=== PATIENT | female | born 1985 | race Asian ===

== ENCOUNTER 2019-12-10 17:09 | Emergency (ER) | payer OTHER, SELFPAY ==
--- NOTE | 2019-12-10 18:34 | ED.ABDPAIN ---
HPI - Abdominal Pain General Chief Complaint: Abdominal Pain Stated Complaint: Fever Time Seen by Provider: 12/10/19 18:34 Source: patient Mode of arrival: ambulatory Limitations: no limitations History of Present Illness HPI narrative: Patient had low grade fever for past few days, now with fever to 103. she is complaining of flank pain and abdominal pain MD elicited complaint: abdominal pain and flank pain Pertinent past history: other (diabetes, IBS, asthma, HTN) Onset (ago): day(s) Pain Consistency: constant Location: L flank Severity: moderate Quality: aching Migration to: no migration Associated symptoms: nausea, fever and chills Related Data Home Medications Medication Instructions Recorded Confirmed albuterol sulfate mg INHALATION Q8H PRN 12/10/19 albuterol sulfate 90 mcg/actuation 2 puff PO Q6H PRN 12/10/19 aerosol inhaler amlodipine 10 mg tablet 10 mg PO DAILY 12/10/19 epinephrine 0.3 mg/0.3 mL 1 IM ONCE PRN 12/10/19 injection, auto-injector flu vac qs 2020(4 yr up)CD(PF) ml IM 12/10/19 fluticasone propionate 110 1 puff INHALATION BID PRN 12/10/19 mcg/actuation HFA aerosol inhaler loratadine 10 mg tablet 10 mg PO DAILY 12/10/19 metformin 850 mg tablet 850 mg PO DAILY 12/10/19 montelukast 10 mg tablet 10 mg PO DAILY 12/10/19 naratriptan 2.5 mg tablet 2.5 mg PO DAILY PRN 12/10/19 spironolactone 25 1 tab PO DAILY 12/10/19 mg-hydrochlorothiazide 25 mg tablet Previous Rx's Medication Instructions Recorded cephalexin [Keflex] 500 mg PO QID #40 cap 12/10/19 Allergies Allergy/AdvReac Type Severity Reaction Status Date / Time losartan [LOSARTAN] Allergy Unknown COUGH Unverified 11/12/19 17:19 oxycodone Allergy Unknown Verified 02/28/16 00:00 acetaminophen [From VICODIN] AdvReac Unknown NAUSEA Unverified 11/12/19 17:19 hydrocodone [From VICODIN] AdvReac Unknown NAUSEA Unverified 11/12/19 17:19 lisinopril AdvReac Unknown cough Verified 07/31/19 00:00 metoprolol AdvReac Unknown dizziness/n Verified 07/31/19 00:00 ausea Review of Systems Constitutional: Reports no additional constitutional complaints Eyes: Reports no additional eye complaints Denies dizziness Cardiovascular: Reports no additional cardiovascular complaints Respiratory: Reports as per HPI Gastrointestinal: Reports no additional gastrointestinal complaints Genitourinary: Reports no additional female genitourinary complaints Musculoskeletal: Reports no additional musculoskeletal complaints Skin/Breast: Denies rash Reports system reviewed and no additional complaints, except as documented, Denies dizziness and Denies Sensory deficit (Neuro) Psychiatric: Denies anxiety Physical Exam Vital Signs: Vital Signs: Vital Signs Temp Pulse Resp BP Pulse Ox 12/10/19 19:48 100.7 F H 117 H 18 109/75 96 Const: General: healthy appearing Nutritional Appearance: average body habitus Orientation/consciousness: oriented to person and patient oriented x3 Limitations: no limitations HENMT: Head: Yes normal to inspection Ears: external ears normal General nose exam: Normal external nose present Mouth: Normal oral and palatal mucosa present and oropharynx normal Throat: Yes posterior oropharynx normal Eyes: General: appearance normal, both eyes and all related structures Neck: Other: supple Neck: Yes normal visual inspection Chest: Chest palpation & inspection: normal inspection of the chest Resp: Auscultation: clear to auscultation bilaterally Cardio: Jugular venous distension: no JVD Rate: regular rate Rhythm: regular rhythm Heart sounds: S1 normal heart sound present and S2 normal heart sound present GI: Inspection: Yes normal to inspection Palpation (GI): Soft to palpation, nontender and No hepatosplenomegaly present Auscultation: normal bowel sounds : Other: patient with right sided CVAT General: Yes CVA tenderness Back/Spine/Pelvis: Back: CVA tenderness Skin: General skin exam: no rashes or lesions noted Neuro: General: oriented to person and patient oriented x3 Cranial nerves: Yes CN's II-XII intact bilaterally Motor exam (neuro): 5/5 motor strength present throughout Sensory Exam: No Sensory deficit (Neuro) Extrem: General: Yes normal to inspection Psych: Appearance: grossly normal Course Course Course Narrative: patient with fever, right CVAT, soft abdomen, UA has nitrites and 4+ bacteria with few epis. Impression is pyelonephritis. Will give a dose of Ceftriaxone and dc on keflex MDM - Abdominal Pain MDM Narrative Medical decision making narrative: pyelonephritis vs gall bladder disease, but with CVAT and fever, and nitrites with bacteria will treat for pyelo Differential Diagnosis Differential diagnosis: Likely abdominal pain Lab Data Result diagrams: 12/10/19 19:19 12/10/19 19:19 Labs: Lab Results 12/10/19 12/10/19 12/10/19 Range/Units 19:19 19:19 19:51 WBC 16.7 H (4.8-10.8) X10*3/uL RBC 4.17 L (4.20-5.50) X10*6/uL Hgb 13.2 (12.0-16.0) g/dl Hct 38.1 (37-47) % MCV 91.4 (80-98) fL MCH 31.7 (27.0-33.0) pg MCHC 34.6 (31.0-35.0) g/dl RDW 11.2 (11.0-16.0) % Plt Count 346 (160-400) X10*3/uL MPV 8.9 L (9.4-12.3) fL Immature Gran % (Auto) 0.5 H (0.0-0.4) % Neut % (Auto) 84.8 H (45-73) % Lymph % (Auto) 5.5 L (20-40) % [place] % (Auto) 9.0 (2-11) % Eos % (Auto) 0.0 (0-4) % Baso % (Auto) 0.2 (0-2) % Lymph # (Auto) 0.9 L (1.2-4.9) X10*3/uL [place] # (Auto) 1.5 H (0.1-1.2) X10*3/uL Eos # (Auto) 0.0 (0.0-0.4) X10*3/uL Baso # (Auto) 0.0 (0.0-0.2) X10*3/uL Abs Immat Gran (auto) 0.08 H (0.00-0.03) X10*3/uL Absolute Neuts (auto) 14.2 H (2.0-8.3) X10*3/uL Absolute Nucleated RBC 0.000 (0.0-0.012) X10*3/uL Nucleated RBC % (auto) 0.0 (0.0-0.2) /100WBC Smear Tech's Comments VERIFIED Sodium 131 L (135-145) mmol/L Potassium 3.5 (3.3-5.1) mmol/l Chloride 94 L (96-108) mmol/L Carbon Dioxide 25 (22-29) mmol/L Anion Gap 16 (12-20) BUN 11 (9-16) mg/dL Creatinine 0.96 (0.5-1.4) mg/dL Estim Creat Clear Calc TNP Estimated GFR > 60 Random Glucose 147 H (60-115) mg/dL Calcium 9.7 (8.4-10.2) mg/dL Urine Color YELLOW Urine Appearance HAZY Urine pH 5.5 (5.0-8.0) Ur Specific [place] 1.015 (1.005-1.025) Urine Protein NEG (NEG-TRACE) MG/DL Urine Glucose (UA) NEG (NEG) MG/DL Urine Ketones NEG (NEG) MG/DL Urine Blood TRACE (NEG) Urine Nitrite POS H (NEG) Ur Leukocyte Esterase TRACE H (NEG) Urine RBC 0-2 (0) /HPF Urine WBC 1-4 (0-4) /HPF Ur Squamous Epith Cells 1+ /LPF Urine Bacteria 4+ /LPF Discharge Plan Discharge Clinical Impression: Pyelonephritis Patient Disposition: Home, Self-Care Instructions: Kidney Infection (ED) Prescriptions: New cephalexin [Keflex] 500 mg capsule 500 mg PO QID Qty: 40 RF: 0 No Action amlodipine 10 mg tablet 10 mg PO DAILY RF: 0 spironolacton-hydrochlorothiaz 25-25 mg tablet 1 tab PO DAILY RF: 0 Flucelvax Quad (PF) 60 mcg (15 mcg x 4)/0.5 mL syringe IM RF: 0 loratadine 10 mg tablet 10 mg PO DAILY RF: 0 Flovent HFA 110 mcg/actuation HFA aerosol inhaler 1 puff inhalation BID PRNRF: 0 naratriptan 2.5 mg tablet 2.5 mg PO DAILY PRN (Reason: migraine) RF: 0 montelukast 10 mg tablet 10 mg PO DAILY RF: 0 metformin 850 mg tablet 850 mg PO DAILY RF: 0 epinephrine 0.3 mg/0.3 mL auto-injector 1 IM ONCE PRNRF: 0 albuterol sulfate 2.5 mg /3 mL (0.083 %) solution for nebulization inhalation Q8H PRNRF: 0 albuterol sulfate 90 mcg/actuation HFA aerosol inhaler 2 puff PO Q6H PRNRF: 0 PMFSH Social History Social History Alcohol intake: never Smoking Status: Never smoker Use of substances other than those prescribed or required for medical reasons: No Advance Directives: No Advance Directives Information Provided: Yes
[2019-12-10 19:24] LABS: Basophils Percent Auto 0.2 % (0-2); Hematocrit 38.1 % (37-47); Hemoglobin 13.2 g/dl (12.0-16.0); Imm Gran Abs Auto 0.08 X10*3/uL (0.00-0.03); Imm Gran Pct Auto 0.5 % (0.0-0.4); Lymphocytes Absolute Auto 0.9 X10*3/uL (1.2-4.9); Lymphocytes Percent Auto 5.5 % (20-40); MANUAL DIFF FLAG SCAN; Mean Corpuscular HGB Conc 34.6 g/dl (31.0-35.0); Mean Corpuscular Hemoglobin 31.7 pg (27.0-33.0); Mean Corpuscular Volume 91.4 fL (80-98); Mean Platelet Volume 8.9 fL (9.4-12.3); Monocytes Absolute Auto 1.5 X10*3/uL (0.1-1.2); Neutrophils Absolute Auto 14.2 X10*3/uL (2.0-8.3); Neutrophils Percent Auto 84.8 % (45-73); Platelet Count 346 X10*3/uL (160-400); Red Blood Count 4.17 X10*6/uL (4.20-5.50); Red Cell Distribution Width 11.2 % (11.0-16.0); SCAN SMEAR FLAG 1; White Blood Count 16.7 X10*3/uL (4.8-10.8)
[2019-12-10] MEDS: Ibuprofen 800 MG TABLET PO (19:25)
[2019-12-10] MEDS: 0.9 % Sodium Chloride 500 ML IV (19:26)
[2019-12-10 19:48] VITALS: BP 109/75; PULSE 117; RESP 18; TEMP 38.2; O2SAT 96
[2019-12-10 20:00] LABS: Anion Gap 16 (12-20); Blood Urea Nitrogen 11 mg/dL (9-16); Calcium 9.7 mg/dL (8.4-10.2); Carbon Dioxide 25 mmol/L (22-29); Chloride 94 mmol/L (96-108); Estimated Glomerular Filt Rate > 60; Glucose Random 147 mg/dL (60-115); Potassium 3.5 mmol/l (3.3-5.1); Sodium 131 mmol/L (135-145)
[2019-12-10 20:03] LABS: SLIDE REVIEW VERIFIED
[2019-12-10 20:17] LABS: Glucose Urine UA NEG (NEG); Leukocyte Esterase Urine TRACE (NEG); Nitrite Urine POS (NEG); PH 5.5 (5.0-8.0); Specific Gravity - Urine 1.015 (1.005-1.025); Urine Blood TRACE (NEG); Urine Ketones NEG (NEG); Urine Protein NEG (NEG-TRACE)
[2019-12-10 20:18] LABS: Appearance Urine HAZY; Color Urine YELLOW
[2019-12-10 20:24] LABS: Bacteria Urine 4+ /LPF; RBC Urine 0-2 /HPF (0); Squamous Epithelial Cell Urine 1+ /LPF
[2019-12-10] MEDS: cefTRIAXone sodium 1 GM in 0.9 % Sodium Chloride 50 ML IV (22:05)
== END 2019-12-10 22:36 | disposition home or self-care (01) ==
PROVIDERS: Emergency Provider Emergency Medicine; PCP Internal Medicine
DX: N12 Tubulo-interstitial nephritis, not specified as acute or chronic (principal); R50.9 Fever, unspecified; E11.9 Type 2 diabetes mellitus without complications; I10 Essential (primary) hypertension; J45.909 Unspecified asthma, uncomplicated; Z79.899 Other long term (current) drug therapy; Z79.84 Long term (current) use of oral hypoglycemic drugs
CPT/HCPCS: 36415; 80048; 81001; 85025; 87040; 87086; 87088; 87186; 99283; 99284

== ENCOUNTER 2019-12-31 11:23 | Outpatient (REF) | payer OTHER, SELFPAY ==
[2019-12-31 14:00] LABS: MANUAL DIFF FLAG NO
[2019-12-31 14:11] LABS: Basophils Percent Auto 0.5 % (0-2); Eosinophils Absolute Auto 0.1 X10*3/uL (0.0-0.4); Hematocrit 39.3 % (37-47); Hemoglobin 13.2 g/dl (12.0-16.0); Imm Gran Abs Auto 0.02 X10*3/uL (0.00-0.03); Imm Gran Pct Auto 0.3 % (0.0-0.4); Lymphocytes Absolute Auto 2.1 X10*3/uL (1.2-4.9); Lymphocytes Percent Auto 33.3 % (20-40); Mean Corpuscular HGB Conc 33.6 g/dl (31.0-35.0); Mean Corpuscular Hemoglobin 31.6 pg (27.0-33.0); Mean Platelet Volume 9.4 fL (9.4-12.3); Monocytes Absolute Auto 0.5 X10*3/uL (0.1-1.2); Monocytes Percent Auto 8.1 % (2-11); Neutrophils Absolute Auto 3.5 X10*3/uL (2.0-8.3); Neutrophils Percent Auto 56.8 % (45-73); Platelet Count 389 X10*3/uL (160-400); Red Blood Count 4.18 X10*6/uL (4.20-5.50); White Blood Count 6.2 X10*3/uL (4.8-10.8)
[2019-12-31 14:17] LABS: Glucose Urine UA NEG (NEG); Leukocyte Esterase Urine NEG (NEG); Nitrite Urine NEG (NEG); PH 6.5 (5.0-8.0); Specific Gravity - Urine <= 1.005 (1.005-1.025); Urine Blood NEG (NEG); Urine Ketones NEG (NEG); Urine Protein NEG (NEG-TRACE)
[2019-12-31 14:20] LABS: Appearance Urine CLEAR; Color Urine YELLOW; UACC Culture Trigger NO
[2019-12-31 14:32] LABS: Anion Gap 15 (12-20); Blood Urea Nitrogen 9 mg/dL (9-16); Calcium 9.4 mg/dL (8.4-10.2); Carbon Dioxide 27 mmol/L (22-29); Chloride 98 mmol/L (96-108); Estimated Glomerular Filt Rate > 60; Glucose Random 111 mg/dL (60-115); Sodium 136 mmol/L (135-145)
[2019-12-31 17:43] LABS: Estimated Average Glucose 140 mg/dL; Hemoglobin A1c % 6.5 %
== END 2019-12-31 11:24 | disposition home or self-care (01) ==
LOC: HO.HMGCLDS 11:23
PROVIDERS: PCP Internal Medicine; Visit Provider Internal Medicine
DX: E13.9 Other specified diabetes mellitus without complications (principal); I10 Essential (primary) hypertension; E87.1 Hypo-osmolality and hyponatremia; R79.89 Other specified abnormal findings of blood chemistry
CPT/HCPCS: 36415; 80048; 81003; 83036; 85025

== ENCOUNTER → 2020-03-14 13:56 | Outpatient (BNVA) | payer OTHER, SELFPAY | PROVIDERS: PCP Internal Medicine; Visit Provider Internal Medicine | DX: J45.909 Unspecified asthma, uncomplicated (principal); G47.33 Obstructive sleep apnea (adult) (pediatric); E66.9 Obesity, unspecified | CPT/HCPCS: 99202 ==

== ENCOUNTER 2020-07-06 09:04 | Outpatient (REF) | payer OTHER, SELFPAY ==
[2020-07-06 12:01] LABS: Estimated Average Glucose 137 mg/dL; Hemoglobin A1c % 6.4 %
[2020-07-06 12:21] LABS: Ferritin 362 ng/mL (10-122)
[2020-07-06 12:22] LABS: Anion Gap 14 (12-20); Blood Urea Nitrogen 13 mg/dL (9-16); Calcium 10.1 mg/dL (8.4-10.2); Carbon Dioxide 27 mmol/L (22-29); Chloride 98 mmol/L (96-108); Cholesterol 148 mg/dL; Estimated Glomerular Filt Rate > 60; Glucose Fasting 140 mg/dL (60-99); HDL Cholesterol 67 mg/dL; LDL Cholesterol Calculated 65 mg/dl; Potassium 4.3 mmol/L (3.3-5.1); Sodium 135 mmol/L (135-145); Triglycerides 80 mg/dL
[2020-07-06 12:34] LABS: Creatinine Urine 27.06 mg/dL; Microalbumin Urine < 5.0 mg/L
== END 2020-07-06 09:05 | disposition home or self-care (01) ==
LOC: HO.HMGCLDS 09:04
PROVIDERS: PCP Internal Medicine; Visit Provider Internal Medicine
DX: R94.5 Abnormal results of liver function studies (principal); R79.89 Other specified abnormal findings of blood chemistry; E13.9 Other specified diabetes mellitus without complications
CPT/HCPCS: 36415; 80048; 80061; 82043; 82728; 83036

== ENCOUNTER 2020-10-14 06:36 | Outpatient (REF) | payer OTHER, SELFPAY ==
[2020-10-14 11:50] LABS: Estimated Average Glucose 131 mg/dL; Hemoglobin A1c % 6.2 %
[2020-10-14 12:00] LABS: Creatinine Urine 224.76 mg/dL; Microalbum/Creatinine Ratio Ur 6.2 ug/mg cr
[2020-10-14 12:20] LABS: Ferritin 189 ng/mL (10-122)
[2020-10-14 12:21] LABS: Alanine Aminotransferase 45 U/L (0-31); Albumin Level 4.3 g/dL (3.5-5.0); Alkaline Phosphatase 102 U/L (39-117); Anion Gap 14 (12-20); Aspartate Amino Transferase 25 U/L (5-31); Bilirubin Total 0.6 mg/dL (0.0-1.0); Blood Urea Nitrogen 12 mg/dL (9-16); Calcium 9.8 mg/dL (8.4-10.2); Carbon Dioxide 25 mmol/L (22-29); Chloride 100 mmol/L (96-108); Estimated Glomerular Filt Rate > 60; Glucose Random 138 mg/dL (60-115); Potassium 3.9 mmol/L (3.3-5.1); Sodium 135 mmol/L (135-145); Total Protein 7.4 g/dL (6.5-8.0)
== END 2020-10-14 06:37 | disposition home or self-care (01) ==
LOC: HO.HMGCLDS 06:36
PROVIDERS: PCP Internal Medicine; Visit Provider Internal Medicine
DX: E13.9 Other specified diabetes mellitus without complications (principal); E66.01 Morbid (severe) obesity due to excess calories; G43.909 Migraine, unspecified, not intractable, without status migrainosus; I10 Essential (primary) hypertension; R79.89 Other specified abnormal findings of blood chemistry; Z91.09 Other allergy status, other than to drugs and biological substances
CPT/HCPCS: 36415; 80053; 82043; 82728; 83036

== ENCOUNTER 2020-11-09 16:39 | Outpatient (REF) | payer OTHER, SELFPAY | END 2020-11-09 16:40 | disposition home or self-care (01) | LOC: HO.LNP 16:39 | PROVIDERS: Visit Provider Internal Medicine | DX: J06.9 Acute upper respiratory infection, unspecified (principal); Z20.822 Contact with and (suspected) exposure to COVID-19 | CPT/HCPCS: U0003; U0005 ==

== ENCOUNTER 2021-02-14 07:57 | Outpatient (REF) | payer OTHER, SELFPAY ==
[2021-02-14 11:47] LABS: Estimated Average Glucose 143 mg/dL; Hemoglobin A1c % 6.6 %
[2021-02-14 11:59] LABS: Alanine Aminotransferase 66 U/L (0-31); Albumin Level 4.4 g/dL (3.5-5.0); Alkaline Phosphatase 91 U/L (39-117); Anion Gap 13 (12-20); Aspartate Amino Transferase 39 U/L (5-31); Bilirubin Total 0.6 mg/dL (0.0-1.0); Blood Urea Nitrogen 10 mg/dL (9-16); Carbon Dioxide 28 mmol/L (22-29); Chloride 100 mmol/L (96-108); Estimated Glomerular Filt Rate > 60; Glucose Random 136 mg/dL (60-115); Sodium 137 mmol/L (135-145); Total Protein 8.2 g/dL (6.5-8.0)
[2021-02-14 12:21] LABS: Ferritin 280 ng/mL (10-122)
== END 2021-02-14 07:58 | disposition home or self-care (01) ==
LOC: HO.HMGCLDS 07:57
PROVIDERS: PCP Internal Medicine; Visit Provider Internal Medicine
DX: E13.9 Other specified diabetes mellitus without complications (principal); G43.909 Migraine, unspecified, not intractable, without status migrainosus; I10 Essential (primary) hypertension; R79.89 Other specified abnormal findings of blood chemistry
CPT/HCPCS: 36415; 80053; 82728; 83036

== ENCOUNTER 2021-07-19 08:40 | Outpatient (REF) | payer OTHER, SELFPAY ==
[2021-07-19 11:30] LABS: Estimated Average Glucose 154 mg/dL
[2021-07-19 11:47] LABS: Alanine Aminotransferase 79 U/L (0-31); Albumin Level 4.4 g/dL (3.5-5.0); Alkaline Phosphatase 80 U/L (39-117); Anion Gap 12 (12-20); Aspartate Amino Transferase 35 U/L (5-31); Bilirubin Total 0.7 mg/dL (0.0-1.0); Blood Urea Nitrogen 11 mg/dL (9-16); Calcium 10.1 mg/dL (8.4-10.2); Carbon Dioxide 28 mmol/L (22-29); Chloride 101 mmol/L (96-108); Cholesterol 150 mg/dL; Estimated Glomerular Filt Rate > 60; Glucose Fasting 160 mg/dL (60-99); HDL Cholesterol 61 mg/dL; LDL Cholesterol Calculated 65 mg/dl; Potassium 4.3 mmol/L (3.3-5.1); Sodium 137 mmol/L (135-145); Triglycerides 122 mg/dL
[2021-07-19 12:24] LABS: Creatinine Urine 174.74 mg/dL; Microalbum/Creatinine Ratio Ur 4.5 ug/mg cr
== END 2021-07-19 08:41 | disposition home or self-care (01) ==
LOC: HO.HMGCLDS 08:40
PROVIDERS: Visit Provider Internal Medicine
DX: E13.9 Other specified diabetes mellitus without complications (principal); E66.01 Morbid (severe) obesity due to excess calories; I10 Essential (primary) hypertension
CPT/HCPCS: 36415; 80053; 80061; 82043; 83036

== ENCOUNTER 2021-11-09 07:47 | Outpatient (REF) | payer OTHER, SELFPAY ==
[2021-11-09 11:43] LABS: Alanine Aminotransferase 55 U/L (0-31); Albumin Level 4.4 g/dL (3.5-5.0); Alkaline Phosphatase 81 U/L (39-117); Anion Gap 15 (12-20); Aspartate Amino Transferase 30 U/L (5-31); Bilirubin Total 0.6 mg/dL (0.0-1.0); Blood Urea Nitrogen 11 mg/dL (9-16); Calcium 9.6 mg/dL (8.4-10.2); Carbon Dioxide 25 mmol/L (22-29); Chloride 98 mmol/L (96-108); Estimated Glomerular Filt Rate > 60; Glucose Random 138 mg/dL (60-115); Sodium 134 mmol/L (135-145); Total Protein 7.5 g/dL (6.5-8.0)
[2021-11-09 11:52] LABS: Estimated Average Glucose 128 mg/dL; Hemoglobin A1c % 6.1 %
== END 2021-11-09 07:48 | disposition home or self-care (01) ==
LOC: HO.HMGCLDS 07:47
PROVIDERS: PCP Internal Medicine; Visit Provider Internal Medicine
DX: E13.9 Other specified diabetes mellitus without complications (principal); E66.01 Morbid (severe) obesity due to excess calories; I10 Essential (primary) hypertension; J45.40 Moderate persistent asthma, uncomplicated; R79.89 Other specified abnormal findings of blood chemistry; Z91.09 Other allergy status, other than to drugs and biological substances
CPT/HCPCS: 36415; 80053; 83036

== ENCOUNTER 2021-11-28 17:37 | Outpatient (REF) | payer OTHER, SELFPAY ==
[2021-11-28 18:29] LABS: Influenza A PCR NEGATIVE (Negative); Influenza B PCR NEGATIVE (Negative); Resp Syncy Virus RNA Qual PCR NEGATIVE (Negative); SARS COV2 PCR INHOUSE POSITIVE (Negative)
== END 2021-11-28 17:38 | disposition home or self-care (01) ==
LOC: HO.LNP 17:37
PROVIDERS: Visit Provider Emergency Medicine
DX: Z20.822 Contact with and (suspected) exposure to COVID-19 (principal); R68.89 Other general symptoms and signs
CPT/HCPCS: 0241U

== ENCOUNTER 2022-06-11 09:50 | Outpatient (REF) | payer OTHER, SELFPAY ==
[2022-06-11 12:16] LABS: Estimated Average Glucose 140 mg/dL; Hemoglobin A1c % 6.5 %
[2022-06-11 12:17] LABS: Alanine Aminotransferase 52 U/L (0-31); Albumin Level 4.6 g/dL (3.5-5.0); Alkaline Phosphatase 79 U/L (39-117); Anion Gap 13 (12-20); Aspartate Amino Transferase 26 U/L (5-31); Bilirubin Total 0.9 mg/dL (0.0-1.0); Blood Urea Nitrogen 10 mg/dL (9-16); Calcium 9.4 mg/dL (8.4-10.2); Carbon Dioxide 27 mmol/L (22-29); Chloride 101 mmol/L (96-108); Estimated Glomerular Filt Rate > 60; Glucose Random 145 mg/dL (60-115); Sodium 137 mmol/L (135-145); Total Protein 7.6 g/dL (6.5-8.0)
== END 2022-06-11 09:51 | disposition home or self-care (01) ==
LOC: HO.HMGCLDS 09:50
PROVIDERS: PCP Internal Medicine; Visit Provider Internal Medicine
DX: E13.9 Other specified diabetes mellitus without complications (principal); I10 Essential (primary) hypertension
CPT/HCPCS: 36415; 80053; 83036

== ENCOUNTER 2023-01-22 11:50 | Outpatient (AMB) | payer OTHER, SELFPAY ==
[2023-01-22 11:53] VITALS: BP 114/86; PULSE 95; O2SAT 98; BMI 35.1
--- NOTE | 2023-01-22 11:53 | MHC.PC.OV ---
Vital Signs 01/22/23 11:53 Height 5 ft 4 in Weight 204 lb 4 oz BMI 35.1 BP 114/86 Blood Pressure Location Lt brachial Position Sitting Pulse 95 Pulse Source Pulse Oximeter Pulse Oximetry (%) 98 Oxygen Delivery Method Room Air Intake Visit Reasons: Annual PE Allergies losartan [LOSARTAN] Allergy (Unknown, Verified 01/22/23 11:53) COUGH oxycodone Allergy (Unknown, Verified 01/22/23 11:53) Unknown acetaminophen [From VICODIN] Adverse Reaction (Unknown, Verified 01/22/23 11:53) NAUSEA hydrocodone [From VICODIN] Adverse Reaction (Unknown, Verified 01/22/23 11:53) NAUSEA lisinopril Adverse Reaction (Unknown, Verified 01/22/23 11:53) cough metoprolol Adverse Reaction (Unknown, Verified 01/22/23 11:53) dizziness/nausea Medication List - Last Reconciled 01/22/23 by Johanny Garcia MD albuterol sulfate 90 mcg/actuation 2 puffs PO Q6H PRN albuterol sulfate 2.5 mg inhalation Q6H PRN amlodipine 5 mg PO DAILY 90 days ascorbic acid (vitamin C) 1,000 mg PO DAILY cholecalciferol (vitamin D3) 100 mcg PO DAILY epinephrine 1 IM ONCE PRN Flovent HFA 110 mcg/actuation (fluticasone propionate) 1 puff inhalation BID 90 days NS loratadine (Claritin) 10 mg PO DAILY 90 days meclizine 25 mg PO BID PRN 30 days metformin 850 mg PO DAILY montelukast (Singulair) 10 mg PO DAILY naratriptan 2.5 mg PO DAILY PRN spironolacton-hydrochlorothiaz 25-25 mg 1 tab PO DAILY 90 days Tobacco use date assessed: 01/22/23 Dental Screening Dental Screen Date: 01/22/23 Did you have a dental visit in the last 12 months?: Yes Did you have a dental problem in the last 6 months where you did not have access to dental care?: No Was dental information given to patient?: Patient has dentist HPI Annual PE HPI Details Patient is 37-year-old female who was last seen in May Patient did not come in after that as she got COVID once and then her grandmother Pap smear is up to date patient [facility] in [facility] Last visit was in summer of this year She is due for labs order placed to be done fasting Patient is asthmatic but stable she is on Flovent as maintenance inhaler and albuterol as needed Patient is having difficulty filling albuterol for some reason I have sent Ventolyn inhaler patient is to get back to me there is a problem BMI is elevated at 35.1 patient is trying to lose weight Medication list reviewed Blood pressure is stable Continue metformin for diabetes Migraine headaches are stable as well Follow-up 3 months [facility] Medical History Obesity (BMI 30.0-34.9) ALESIA (obstructive sleep apnea) Allergic rhinitis LFT elevation Elevated ferritin Asthma Migraine headache Diabetes 1.5, managed as type 2 Environmental allergies Hypertension, essential Surgical History History of laparoscopic cholecystectomy Family History Father Unknown family medical history Mother Unknown family medical history Brother No problems noted. Social History Housing: House Alcohol intake: never Patient Tobacco Use Status: Never used Tobacco e-Cigarette/Vaping Use: Never Used Second Hand Smoke Exposure: No service: No Current occupational status: employed Cognitive needs: No Hearing needs: No Vision needs: No Questionnaire PHQ-9 Over the last 2 weeks, how often have you been bothered by any of the following problems? 1. Little interest or pleasure in doing things: not at all 2. Feeling down, depressed, or hopeless: several days 3. Trouble falling or staying asleep, or sleeping too much: not at all 4. Feeling tired or having little energy: several days 5. Poor appetite or overeating: not at all 6. Feeling bad about yourself - or that you are a failure or have let yourself or your family down: not at all 7. Trouble concentrating on things, such as reading the newspaper or watching television: not at all 8. Moving or speaking so slowly that other people could have noticed. Or the opposite - being so fidgety or restless that you have been moving around a lot more than usual: not at all 9. Thoughts that you would be better off or of hurting yourself in some way: not at all Total score: 2 Depression Screening Interpretation: Negative Depression Screening Done: Yes 53538 - PHQ-9 Billing: Yes Source: Developed by Drs. Adam Kidd, Sherrie Lantigua, Grayson Wiseman and colleagues, with an educational gene from [employer]. Thrive Questionnaire Date Thrive assessed: 01/22/23 I am a: Patient What is your living situation today?: I have a steady place to live Within the past 12 months, did the food you bought not last and you didn't have the money to get more?: Never true Within the past 12 months, did you worry whether your food would run out before you got money to buy more?: Never true Do you have trouble paying for medicines?: No Do you have trouble getting transportation to medical appointments?: No Do you have trouble paying your heating and electricity bill?: No Do you have trouble taking care of your child, family member or friend?: No Do you have trouble with day-to-day activities such as bathing, preparing meals, shopping, managing finances, etc.?: No Are you currently unemployed and looking for a job?: No Are you interested in more education?: No Please select the resources that you would like help with: None Currently or been in a relationship where the following occur: no concerns reported AUDIT C Alcohol Use Questionnaire (AUDIT-C) 1. How often do you have a drink containing alcohol?: Never 3. How often do you have six or more drinks on one occasion?: Never Total Score: 0 Score Reviewed/Action Taken: No TIM-7 AMB Questionnaire TIM-7 Date TIM - 7 assessed: 01/22/23 Feeling nervous, anxious, or on edge: 1 = Several days Not being able to stop or control worryin = Not at all Worrying too much about different things: 1 = Several days Trouble relaxin = Not at all Being so restless that it is hard to sit still: 0 = Not at all Becoming easily annoyed or irritable: 0 = Not at all Feeling afraid as if something awful might happen: 0 = Not at all Total TIM-7 score (0-4 normal; 5-9 mild; 10-14 moderate; 15-21 severe): 2 Source: Developed by Drs. Adam Kidd, Sherrie Lantigua, Grayson Wiseman and colleagues, with an educational gene from [employer]. TIM-7 Assessment Billing TIM-7 Assessment Tool: TIM-7 Assessment 72603 ACT Questionnaire In the past 4 weeks, how much of the time did your asthma keep you from getting as much done at work, school or at home?: A little of the time During the past 4 weeks, how often have you had shortness of breath?: 1-2 times a week During the past 4 weeks, how often did your asthma symptoms wake you up at night or earlier than usual in the morning?: Not at all During the past 4 weeks, how often have you had to use your rescue inhaler or nebulizer medication?: Once a week or less How would you rate your asthma control during the past 4 weeks?: Well controlled ACT Interpretation: Negative Score: 21 Review of Systems Const Denies chills, Denies fever(s) and Denies headache(s) Eyes Denies blurry vision ENT Denies headache(s), Denies nasal discharge, Denies nasal obstruction, Denies odynophagia and Denies sinus pain Card Denies chest pain at rest and Denies chest pain with activity Resp Denies cough and Denies hemoptysis GI Denies diarrhea, Denies odynophagia, Denies vomiting and Denies hematemesis Reports as per HPI Musc Denies abnormal gait Skin/Breast Reports as per HPI Neuro Denies Neuro-related abnormal movements, Denies Abnormal speech present, Denies abnormal gait, Denies headache(s) and Denies Sensory deficit (Neuro) Psych Denies mood swings and Denies paranoia Endo Reports as per HPI Jose/Lymph Reports as per HPI Aller/Immun Reports as per HPI Physical exam (Primary Care) Vital Signs: Last Vital Signs Pulse 95 01/22/23 11:53 BP 114/86 01/22/23 11:53 Pulse Ox 98 01/22/23 11:53 Oxygen Delivery Method Room Air 01/22/23 11:53 BMI result Body Mass Index 35.1 Tobacco/Smoking Status: Tobacco use Status Tobacco use date assessed 01/22/23 01/22/23 11:56 Patient Tobacco Use Status Never used Tobacco 01/22/23 11:56 e-Cigarette/Vaping Use Never Used 11/28/23 11:56 PHQ-9: PHQ-9 Score PHQ-9: Total score 2 01/22/23 12:27 Depression Screening Interpretation: Negative Thrive Assessment: Date of Thrive Assessment Date Thrive assessed 01/22/23 01/22/23 12:27 Currently or been in a relationship where the following occur: no concerns reported Const General: cooperative, comfortable and no acute distress Orientation/consciousness: patient oriented x3 HENMT Head: Yes normocephalic and Yes atraumatic Eyes General: appearance normal, both eyes and all related structures Pupils: Equal, round and reactive pupils present EOM: EOMs intact bilaterally Neck Neck: Yes supple and No lymphadenopathy Thyroid: Thyroid normal Lymphatic: no lymphadenopathy noted Resp Effort & Inspection: normal respiratory effort and able to speak in complete sentences Auscultation: clear to auscultation bilaterally Cardio Heart sounds: S1 normal heart sound present and S2 normal heart sound present GI Palpation (GI): Soft to palpation and nontender Auscultation: normal bowel sounds General: Yes no CVA tenderness Back/Spine/Pelvis Back: no CVA tenderness Skin General skin exam: elasticity normal and turgor normal Neuro General: patient oriented x3 and gait normal Cranial nerves: Yes Equal, round and reactive pupils present Speech: No Abnormal speech present Sensory Exam: No Sensory deficit (Neuro) Coordination: tandem gait normal and Romberg test negative Extrem General: Yes normal exam except as noted and No edema Office Procedures Flu Questionnaire Does the patient have a severe egg allergy?: No Does the patient have severe life threatening allergies?: No Does the patient have a fever or illness today?: No Has the patient ever had Guillain-Rembrandt Syndrome?: No Has the patient ever had any past reaction to a flu shot?: No Immunizations flu vacc [id number] 6mos up(PF) 60 mcg(15 mcgx4)/0.5 mL IM syringe Performing Provider: Johanny Garcia MD Performing Location: [facility] Administered by: Cristine Anderson CMA on 01/22/23 12:26 Dose Route Admin Location Dispensed Lot Number Expiration Date NDC Assurance Analyst 0.5 mL IM Left Deltoid 0.5 mL [id number] 08/25/23 [id number] [employer] VIS Given Date VIS Provided VIS Publication Date 01/22/23 Single Vaccine 21 Eligibility Eligibility Date Funding Source Not VFC Eligible 01/22/23 Private Assessment and Plan Assessment & Plan (1) Encounter for general adult medical examination with abnormal findings: Code(s): Z00.01 - Encounter for general adult medical examination with abnormal findings (2) Diabetes mellitus type 2 in obese: Code(s): E11.69 - Type 2 diabetes mellitus with other specified complication; E66.9 - Obesity, unspecified (3) Obesity due to excess calories: Code(s): E66.09 - Other obesity due to excess calories Qualifiers: Body mass index: BMI 35.0-35.9 Obesity classification: adult class 2 (BMI 35 - 39.9) Serious obesity comorbidity presence: with serious comorbidity Qualified Code(s): E66.01 - Morbid (severe) obesity due to excess calories; Z68.35 - Body mass index [BMI] 35.0-35.9, adult (4) Asthma, moderate persistent: Code(s): J45.40 - Moderate persistent asthma, uncomplicated Qualifiers: Asthma complication type: uncomplicated Qualified Code(s): J45.40 - Moderate persistent asthma, uncomplicated (5) Elevated ferritin: Code(s): R79.89 - Other specified abnormal findings of blood chemistry (6) Environmental allergies: Code(s): Z91.09 - Other allergy status, other than to drugs and biological substances (7) Hypertension, essential: Code(s): I10 - Essential (primary) hypertension (8) Migraine headache: Code(s): G43.909 - Migraine, unspecified, not intractable, without status migrainosus Qualifiers: Intractability: intractable Migraine type: with aura Status migrainosus presence: without status migrainosus Qualified Code(s): G43.119 - Migraine with aura, intractable, without status migrainosus Plan Patient is 37-year-old female who was last seen in May Patient did not come in after that as she got COVID once and then her grandmother Pap smear is up to date patient goes [facility] Last visit was in summer of this year She is due for labs order placed to be done fasting Patient is asthmatic but stable she is on Flovent as maintenance inhaler and albuterol as needed Patient is having difficulty filling albuterol for some reason I have sent Ventolyn inhaler patient is to get back to me there is a problem BMI is elevated at 35.1 patient is trying to lose weight Medication list reviewed Blood pressure is stable Continue metformin for diabetes Migraine headaches are stable as well Follow-up 3 months Orders: Orders Hemoglobin A1c Today E13.9 - Other specified diabetes mellitus without complications, E66.09 - Other obesity due to excess calories, G43.909 - Migraine, unspecified, not intractable, without status migrainosus, I10 - Essential (primary) hypertension, J45.40 - Moderate persistent asthma, uncomplicated, R79.89 - Other specified abnormal findings of blood chemistry, Z00.01 - Encounter for general adult medical examination with abnormal findings, Z91.09 - Other allergy status, other than to drugs and biological substances Ferritin Today R79.89 - Other specified abnormal findings of blood chemistry Influenza [id number] Immunization Today Z23 - Encounter for immunization Complete Blood Count Auto Diff Today E13.9 - Other specified diabetes mellitus without complications, E66.09 - Other obesity due to excess calories, G43.909 - Migraine, unspecified, not intractable, without status migrainosus, I10 - Essential (primary) hypertension, J45.40 - Moderate persistent asthma, uncomplicated, R79.89 - Other specified abnormal findings of blood chemistry, Z00.01 - Encounter for general adult medical examination with abnormal findings, Z91.09 - Other allergy status, other than to drugs and biological substances Comprehensive Allen. Panel Fast Today E13.9 - Other specified diabetes mellitus without complications, E66.09 - Other obesity due to excess calories, G43.909 - Migraine, unspecified, not intractable, without status migrainosus, I10 - Essential (primary) hypertension, J45.40 - Moderate persistent asthma, uncomplicated, R79.89 - Other specified abnormal findings of blood chemistry, Z00.01 - Encounter for general adult medical examination with abnormal findings, Z91.09 - Other allergy status, other than to drugs and biological substances Microalbumin, Random (w Creat) Today E13.9 - Other specified diabetes mellitus without complications, E66.09 - Other obesity due to excess calories, G43.909 - Migraine, unspecified, not intractable, without status migrainosus, I10 - Essential (primary) hypertension, J45.40 - Moderate persistent asthma, uncomplicated, R79.89 - Other specified abnormal findings of blood chemistry, Z00.01 - Encounter for general adult medical examination with abnormal findings, Z91.09 - Other allergy status, other than to drugs and biological substances Lipid Panel Today E13.9 - Other specified diabetes mellitus without complications, E66.09 - Other obesity due to excess calories, G43.909 - Migraine, unspecified, not intractable, without status migrainosus, I10 - Essential (primary) hypertension, J45.40 - Moderate persistent asthma, uncomplicated, R79.89 - Other specified abnormal findings of blood chemistry, Z00.01 - Encounter for general adult medical examination with abnormal findings, Z91.09 - Other allergy status, other than to drugs and biological substances Medications: New naratriptan do not exceed 2 doses per 24 hrs 2.5 mg PO DAILY PRN 10 tabs 0RF Migraine Headache Refilled amlodipine 5 mg PO DAILY 90 tabs 1RF 90 days Flovent HFA 110 mcg/actuation (fluticasone propionate) 1 puff inhalation BID 12 grams 4RF 90 days NS loratadine (Claritin) 10 mg PO DAILY 90 tabs 0RF 90 days metformin 850 mg PO DAILY 90 tabs 0RF montelukast (Singulair) 10 mg PO DAILY 90 tabs 1RF J30.9 - Allergic rhinitis, unspecified spironolacton-hydrochlorothiaz 25-25 mg 1 tab PO DAILY 90 tabs 0RF 90 days Coding Level of Care Code Est Pt Prev Care 18-39y(90920) Diagnoses Encounter for general adult medical examination with abnormal findings Z00.01 Diabetes mellitus type 2 in obese E11.69; E66.9 Class 2 severe obesity due to excess calories with serious comorbidity and body mass index (BMI) of 35.0 to 35.9 in adult E66.01; Z68.35 Body mass index: BMI 35.0-35.9 Obesity classification: adult class 2 (BMI 35 - 39.9) Serious obesity comorbidity presence: with serious comorbidity Moderate persistent asthma without complication J45.40 Asthma complication type: uncomplicated Elevated ferritin R79.89 Environmental allergies Z91.09 Hypertension, essential I10 Intractable migraine with aura without status migrainosus G43.119 Intractability: intractable Migraine type: with aura Status migrainosus presence: without status migrainosus Additional Codes TIM-7 Assessment Billing - TIM-7 Assessment Tool: TIM-7 Assessment [id number] ([id number])
== END 2023-01-22 13:21 | disposition home or self-care (01) ==
PROVIDERS: PCP Internal Medicine; Visit Provider Internal Medicine
DX: Z00.00 Encounter for general adult medical examination without abnormal findings (principal); E11.69 Type 2 diabetes mellitus with other specified complication; E66.01 Morbid (severe) obesity due to excess calories; Z23 Encounter for immunization; Z68.35 Body mass index [BMI] 35.0-35.9, adult; J45.40 Moderate persistent asthma, uncomplicated; R79.89 Other specified abnormal findings of blood chemistry; Z91.09 Other allergy status, other than to drugs and biological substances; I10 Essential (primary) hypertension; G43.119 Migraine with aura, intractable, without status migrainosus
CPT/HCPCS: 90471; 90686; 99395

== ENCOUNTER 2023-02-04 08:37 | Outpatient (AMB) | payer OTHER, SELFPAY ==
[2023-02-04 09:21] VITALS: BP 112/70; PULSE 108; TEMP 36.6; O2SAT 97; BMI 34.2
--- NOTE | 2023-02-04 09:21 | AM.OFFWIN_ITS ---
Intake Vital Signs 02/04/23 09:21 Height 5 ft 4 in Weight 199 lb 2 oz BMI 34.2 BP 112/70 Blood Pressure Location Rt brachial Position Sitting Pulse 108 H Pulse Source Pulse Oximeter Temp 97.8 F Temp Source Oral Pulse Oximetry (%) 97 Oxygen Delivery Method Room Air Intake Visit Reasons: EST/congestion([phone]) Intake Note: pt is here for c.o cough, congestion, watery eyes Patient Tobacco Use Status: Never used Tobacco Allergies losartan [LOSARTAN] Allergy (Unknown, Verified 02/04/23 09:22) COUGH oxycodone Allergy (Unknown, Verified 02/04/23:22) Unknown acetaminophen [From VICODIN] Adverse Reaction (Unknown, Verified 02/04/23:) NAUSEA hydrocodone [From VICODIN] Adverse Reaction (Unknown, Verified 02/04/23:) NAUSEA lisinopril Adverse Reaction (Unknown, Verified 02/04/23:) cough metoprolol Adverse Reaction (Unknown, Verified 02/04/23:) dizziness/nausea Do you need a note to return to daycare/school/sports/work: Yes HPI EST/congestion([phone]) HPI Details 37 yeara old female patient presents tod ay with 4 days of cough with yellow sputum, nasal congestion, fever up to 101.5. Denies any shortness of breath. Has some mild throat soreness due to coughing. Has taken otc tylenol, motrin, mucinex, and Flovent. Needs albuterol refill. Has known exposure to sick contact last week. Home Covid test was negative. Also reports eyes have been very itchy and watery. [facility] Medical History Obesity (BMI 30.0-34.9) ALESIA (obstructive sleep apnea) Allergic rhinitis LFT elevation Elevated ferritin Asthma Migraine headache Diabetes 1.5, managed as type 2 Environmental allergies Hypertension, essential Surgical History History of laparoscopic cholecystectomy Family History Father Unknown family medical history Mother Unknown family medical history Brother No problems noted. Social History Housing: House Alcohol intake: never Patient Tobacco Use Status: Never used Tobacco e-Cigarette/Vaping Use: Never Used Second Hand Smoke Exposure: No service: No Current occupational status: employed Cognitive needs: No Hearing needs: No Vision needs: No Review of Systems Const All systems reviewed & are unremarkable except as noted in HPI and below Physical Exam Vital Signs: Last Vital Signs Temp 97.8 F 02/04/23 09:21 Pulse 117 H 02/04/23 09:21 BP 112/70 02/04/23 09:21 Pulse Ox 97 02/04/23 09:21 Oxygen Delivery Method Room Air 02/04/23 09:21 BMI result Body Mass Index 34.2 Const General: cooperative and no acute distress Nutritional Appearance: obese HEENT Head: Yes normal to inspection Ears: hearing grossly normal bilaterally General nose exam: Normal external nose present and Nasal discharge present mucoid Face and sinus: Yes normal facial exam and Yes sinuses nontender Mouth: Normal oral and palatal mucosa present and moist mucous membranes Throat: Yes posterior oropharynx abnormal (mild erythema) Eyes Eyelids: Yes eyelids normal Conjunctivae: conjunctival abnormal bilateral (mild conjunctival injection, watery discharge b/l) Pupils: Equal, round and reactive pupils present and Pupil accommodation reflex normal EOM: EOMs intact bilaterally Direct Ophthalmoscopy: normal light reflex and no photophobia Neck Neck: Yes no lymphadenopathy Resp Effort & Inspection: normal respiratory effort, able to speak in complete sentences and Actively coughing Quality: actively coughing Auscultation: clear to auscultation bilaterally Cardio Jugular venous distension: no JVD Palpation: normal PMI Rate: regular rate Rhythm: regular rhythm Skin General skin exam: no rashes or lesions noted Neuro Cranial nerves: Yes Equal, round and reactive pupils present Extrem General: Yes capillary refill normal and Yes no clubbing, cyanosis or edema Psych Appearance: grossly normal Mental Status: mental status grossly normal Speech and movement: Normal speech and movement present Assessment & Plan Assessment & Plan (1) Upper respiratory tract infection: Code(s): J06.9 - Acute upper respiratory infection, unspecified Qualifiers: URI type: unspecified viral URI Qualified Code(s): J06.9 - Acute upper respiratory infection, unspecified Plan: Discussed findings are consistent with viral illness. Covid/Flu/RSV swab obtained. Discussed ongoing conservative measures with otc cold/flu medications for symptomatic treatment. Albuterol inhaler refilled and will start patient on benzonatate for her cough. Reviewed indications, use of these. Will also pres cribe eye drops (Pataday) for eye itching/irritation. Advised to return to the clinic as needed for ongoing or worsening symptoms. She verbalizes understanding and agrees to plan. (2) Eye irritation: Code(s): H57.89 - Other specified disorders of eye and adnexa Plan: Drops ordered. Orders: Orders SARS-CoV2/FLU/RSV Today J06.9 - Acute upper respiratory infection, unspecified Medications: New benzonatate 100 mg PO BID 7 days PRN 14 caps 0RF cough R05.9 - Cough, unspecified albuterol sulfate 90 mcg/actuation 2 inhalations inhalation QID PRN 6.7 grams 1RF shortness of breath or wheezing J06.9 - Acute upper respiratory infection, unspecified olopatadine 0.2% (Pataday Once Daily Relief) 1 drp ophthalmic (eye) DAILY PRN 2.5 mL 0RF itching H57.89 - Other specified disorders of eye and adnexa Coding Level of Care Code Est Pt Level 3 (45564) Diagnoses Viral upper respiratory tract infection J06.9 URI type: unspecified viral URI Eye irritation H57.89
== END 2023-02-04 09:54 | disposition home or self-care (01) ==
PROVIDERS: PCP Internal Medicine; Visit Provider Nurse Practitioner Family
DX: J06.9 Acute upper respiratory infection, unspecified (principal); H57.89 Other specified disorders of eye and adnexa
CPT/HCPCS: 99213

== ENCOUNTER 2023-02-04 09:47 | Outpatient (REF) | payer OTHER, SELFPAY ==
[2023-02-04 14:42] LABS: Influenza A PCR NEGATIVE (Negative); Influenza B PCR NEGATIVE (Negative); Resp Syncy Virus RNA Qual PCR NEGATIVE (Negative); SARS COV2 PCR INHOUSE NEGATIVE (Negative)
== END 2023-02-04 09:48 | disposition home or self-care (01) ==
LOC: HO.LAB 09:47
PROVIDERS: Visit Provider Nurse Practitioner Family
DX: Z11.52 Encounter for screening for COVID-19 (principal); J06.9 Acute upper respiratory infection, unspecified
CPT/HCPCS: 0241U

== ENCOUNTER 2023-06-24 08:07 | Outpatient (AMB) | payer OTHER, SELFPAY ==
--- NOTE | 2023-06-24 08:43 | AM.OFFWIN_ITS ---
Intake Vital Signs 06/24/23 08:50 Height 5 ft 4 in Weight 200 lb BMI 34.3 BP 120/88 Blood Pressure Location Lt brachial Position Sitting Pulse 100 Pulse Source Pulse Oximeter Temp 98.0 F Temp Source Oral Pulse Oximetry (%) 98 Oxygen Delivery Method Room Air Intake Visit Reasons: EP ?UTI [phone] Intake Note: Pt presents to the office today for c/o UTI symptoms that started about 2 days ago. She states she is having pain when she urinates as well as mid back pain and urinary frequency. Patient Tobacco Use Status: Never used Tobacco Allergies losartan [LOSARTAN] Allergy (Unknown, Verified 06/24/23 09:10) COUGH oxycodone Allergy (Unknown, Verified 06/24/23 09:10) Unknown acetaminophen [From VICODIN] Adverse Reaction (Unknown, Verified 06/24/23 09:10) NAUSEA hydrocodone [From VICODIN] Adverse Reaction (Unknown, Verified 06/24/23 09:10) NAUSEA lisinopril Adverse Reaction (Unknown, Verified 06/24/23 09:10) cough metoprolol Adverse Reaction (Unknown, Verified 06/24/23 09:10) dizziness/nausea Medication List - Last Reconciled 06/24/23 by Anish Sheldon MD albuterol sulfate 90 mcg/actuation 2 puffs PO Q6H PRN albuterol sulfate 2.5 mg inhalation Q6H PRN albuterol sulfate 90 mcg/actuation 2 inhalations inhalation QID PRN amlodipine 5 mg PO DAILY 90 days ascorbic acid (vitamin C) 1,000 mg PO DAILY benzonatate 100 mg PO BID PRN 7 days cholecalciferol (vitamin D3) 100 mcg PO DAILY epinephrine 1 IM ONCE PRN loratadine (Claritin) 10 mg PO DAILY 90 days meclizine 25 mg PO BID PRN 30 days metformin 850 mg PO DAILY montelukast (Singulair) 10 mg PO DAILY naratriptan 2.5 mg PO DAILY PRN Pulmicort Flexhaler 90 mcg/actuation (budesonide) 1 inh inhalation BID NS spironolacton-hydrochlorothiaz 25-25 mg 1 tab PO DAILY 30 days HPI EP ?UTI [phone] HPI Details Patient presents for a sick visit. Reports symptoms of increased frequency of urination, burning on urination and discomfort in the suprapubic area. Symptoms started in the past few days. No fevers or chills. No nausea or vomiting. [facility] Medical History Obesity (BMI 30.0-34.9) ALESIA (obstructive sleep apnea) Allergic rhinitis LFT elevation Elevated ferritin Asthma Migraine headache Diabetes 1.5, managed as type 2 Environmental allergies Hypertension, essential Surgical History History of laparoscopic cholecystectomy Family History Father Unknown family medical history Mother Unknown family medical history Brother No problems noted. Social History Housing: House Alcohol intake: never Patient Tobacco Use Status: Never used Tobacco e-Cigarette/Vaping Use: Never Used Second Hand Smoke Exposure: No service: No Current occupational status: employed Cognitive needs: No Hearing needs: No Vision needs: No Physical Exam Vital Signs: Last Vital Signs Temp 98.0 F 06/24/23 08:50 Pulse 100 06/24/23 08:50 BP 120/88 06/24/23 08:50 Pulse Ox 98 06/24/23 08:50 Oxygen Delivery Method Room Air 06/24/23 08:50 BMI result Body Mass Index 34.3 General: Yes Bimanual renal exam normal bilaterally, Yes bladder normal to inspection and Yes no CVA tenderness Back/Spine/Pelvis Back: no CVA tenderness Results AMB Urinalysis, Automated UA Leukoctes 0 Rocio/uL Last Edit by Nunu Cameron CMA on 06/24/23 08:59 UA Nitrite Negative Last Edit by Nunu Cameron CMA on 06/24/23 08:59 UA Urobilinogen 0.2 mg/dL Last Edit by Nunu Cameron CMA on 06/24/23 08:59 UA Protein 0 mg/dL Last Edit by Nunu Cameron CMA on 06/24/23 08:59 UA pH 6.0 Last Edit by Nunu Cameron CMA on 06/24/23 08:59 UA Blood 0 Herb/uL Last Edit by Nunu Cameron CMA on 06/24/23 08:59 UA Specific [place] 1.010 Last Edit by Nunu Cameron CMA on 06/24/23 08:59 UA Ketone Negative Last Edit by Nunu Cameron CMA on 06/24/23 08:59 UA Bilirubin 0 mg/dL Last Edit by Nunu Cameron CMA on 06/24/23 08:59 UA Glucose 0 mg/dL Last Edit by Nunu Cameron CMA on 06/24/23 08:59 Results Reviewed Results Reviewed: Laboratory Last Values Urine pH (Auto) 6.0 06/24/23 08:58 Specific [place]me[place] (Auto) 1.010 06/24/23 08:58 Urine Protein (Auto) 0 mg/dL 06/24/23 08:58 Glucose (UA)(Auto) 0 mg/dL 06/24/23 08:58 Urine Ketones (Auto) Negative 06/24/23 08:58 Urine Blood (Auto) 0 Herb/uL 06/24/23 08:58 Urine Nitrite (Auto) Negative 06/24/23 08:58 Urine Bilirubin (Auto) 0 mg/dL 06/24/23 08:58 Urine Urobilinogen (Auto) 0.2 mg/dL 06/24/23 08:58 Leukocyte Esterase (Auto) 0 Rocio/uL 06/24/23 08:58 Assessment & Plan Assessment & Plan (1) Urinary tract infection: Code(s): N39.0 - Urinary tract infection, site not specified Plan: Take antibiotics and Pyridium as directed. Increase fluid intake. If symptoms of burning persist, new onset of fever or lower back pain, to follow-up at the clinic. Orders: Orders AMB Urinalysis Automated Today Z13.9 - Encounter for screening, unspecified Coding Level of Care Code Est Pt Level 3 (84143) Diagnoses Urinary tract infection N39.0
[2023-06-24 08:50] VITALS: BP 120/88; PULSE 100; TEMP 36.7; O2SAT 98; BMI 34.3
== END 2023-06-24 09:13 | disposition home or self-care (01) ==
PROVIDERS: PCP Internal Medicine; Visit Provider Internal Medicine
DX: N39.0 Urinary tract infection, site not specified (principal)
CPT/HCPCS: 81003; 99213

== ENCOUNTER 2023-07-18 08:59 | Outpatient (REF) | payer OTHER, SELFPAY ==
[2023-07-18 10:29] LABS: MANUAL DIFF FLAG NO
[2023-07-18 10:42] LABS: Estimated Average Glucose 140 mg/dL; Hemoglobin A1C 152.4385 umol/L; Hemoglobin A1c % 6.5 % (<6.0)
[2023-07-18 10:53] LABS: Creatinine Urine 181.09 mg/dL; Microalbum/Creatinine Ratio Ur 4.9 ug/mg cr (<30)
[2023-07-18 11:02] LABS: Alanine Aminotransferase 48 U/L (0-31); Albumin Level 4.5 g/dL (3.5-5.0); Alkaline Phosphatase 73 U/L (39-117); Anion Gap 16 (12-20); Aspartate Amino Transferase 30 U/L (5-31); Bilirubin Total 0.6 mg/dL (0.0-1.0); Blood Urea Nitrogen 13 mg/dL (9-16); Calcium 9.7 mg/dL (8.4-10.2); Carbon Dioxide 23 mmol/L (22-29); Chloride 104 mmol/L (96-108); Cholesterol 150 mg/dL (<200); Estimated Glomerular Filt Rate > 60; Ferritin 335 ng/mL (10-122); Glucose Fasting 141 mg/dL (60-99); HDL Cholesterol 61 mg/dL (>40); LDL Cholesterol Calculated 69 mg/dL (<100); Sodium 139 mmol/L (135-145); Total Protein 7.8 g/dL (6.5-8.0); Triglycerides 103 mg/dL (<150)
[2023-07-18 11:33] LABS: Basophils Percent Auto 0.6 % (0-2); Eosinophils Absolute Auto 0.1 X10*3/uL (0.0-0.4); Eosinophils Percent Auto 2.3 % (0-4); Hematocrit 38.8 % (37.0-47.0); Hemoglobin 13.2 g/dl (12.0-16.0); Imm Gran Abs Auto 0.01 X10*3/uL (0.00-0.03); Imm Gran Pct Auto 0.2 % (0.0-0.4); Lymphocytes Absolute Auto 1.8 X10*3/uL (1.2-4.9); Lymphocytes Percent Auto 35.1 % (20-40); Mean Corpuscular Volume 94.2 fL (80.0-98.0); Mean Platelet Volume 9.3 fL (9.4-12.3); Monocytes Absolute Auto 0.4 X10*3/uL (0.1-1.2); Monocytes Percent Auto 8.1 % (2-11); Neutrophils Absolute Auto 2.8 x10*3/uL (2.0-8.3); Neutrophils Percent Auto 53.7 % (45-73); Platelet Count 366 X10*3/uL (160-400); Red Blood Count 4.12 X10*6/uL (4.20-5.50); Red Cell Distribution Width 11.7 % (11.0-16.0); White Blood Count 5.2 X10*3/uL (4.8-10.8)
== END 2023-07-18 09:00 | disposition home or self-care (01) ==
LOC: HO.HMGCLDS 08:59
PROVIDERS: PCP Internal Medicine; Visit Provider Internal Medicine
DX: Z00.01 Encounter for general adult medical examination with abnormal findings (principal); E66.09 Other obesity due to excess calories; J45.40 Moderate persistent asthma, uncomplicated; R79.89 Other specified abnormal findings of blood chemistry; E13.9 Other specified diabetes mellitus without complications; Z91.09 Other allergy status, other than to drugs and biological substances; I10 Essential (primary) hypertension; G43.909 Migraine, unspecified, not intractable, without status migrainosus
CPT/HCPCS: 36415; 80053; 80061; 82043; 82570; 82728; 83036; 85025

== ENCOUNTER 2023-07-23 15:07 | Outpatient (AMB) | payer OTHER, SELFPAY ==
[2023-07-23 15:13] VITALS: BP 120/88; PULSE 100; O2SAT 98; BMI 34.7
--- NOTE | 2023-07-23 15:13 | A.OFFPC_ITS ---
Vital Signs 07/23/23 15:13 Height 5 ft 4 in Weight 202 lb 4 oz BMI 34.7 BP 120/88 Blood Pressure Location Lt brachial Position Sitting Pulse 100 Pulse Source Pulse Oximeter Pulse Oximetry (%) 98 Oxygen Delivery Method Room Air Intake Visit Reasons: 6 Month follow up Allergies losartan [LOSARTAN] Allergy (Unknown, Verified 07/23/23 15:15) COUGH oxycodone Allergy (Unknown, Verified 07/23/23 15:15) Unknown acetaminophen [From VICODIN] Adverse Reaction (Unknown, Verified 07/23/23 15:15) NAUSEA hydrocodone [From VICODIN] Adverse Reaction (Unknown, Verified 07/23/23 15:15) NAUSEA lisinopril Adverse Reaction (Unknown, Verified 07/23/23 15:15) cough metoprolol Adverse Reaction (Unknown, Verified 07/23/23 15:15) dizziness/nausea Medication List - Last Reconciled 07/23/23 by Johanny Garcia MD albuterol sulfate 2.5 mg inhalation Q6H PRN albuterol sulfate 90 mcg/actuation 2 inhalations inhalation QID PRN amlodipine 5 mg PO DAILY 90 days ascorbic acid (vitamin C) 1,000 mg PO DAILY cholecalciferol (vitamin D3) 100 mcg PO DAILY epinephrine 1 IM ONCE PRN loratadine (Claritin) 10 mg PO DAILY 90 days metformin 850 mg PO DAILY montelukast (Singulair) 10 mg PO DAILY naratriptan 2.5 mg PO DAILY PRN Pulmicort Flexhaler 90 mcg/actuation (budesonide) 1 inh inhalation BID NS spironolacton-hydrochlorothiaz 25-25 mg 1 tab PO DAILY 30 days Tobacco use date assessed: 07/23/23 Dental Screening Dental Screen Date: 07/23/23 Did you have a dental visit in the last 12 months?: Yes Did you have a dental problem in the last 6 months where you did not have access to dental care?: No Was dental information given to patient?: Patient has dentist HPI 6 Month follow up HPI Details Patient is a 37-year-old female came in today for her regular 4 month follow-up appointment Ferritin level came back at 335 at recent labs, patient has already seen Hematology, she is hemochromatosis gene negative We will continue to monitor Allergies: patient is seeing Dr. Richards, patient is having allergy injections and is feeling much better She is to continue with oral antihistamine with occasional use of Flonase. LFTs are stable ALT has improved from before Diabetes: Patient is on metformin 850 mg hemoglobin A1c is 6.5 Medication list reviewed Blood pressure is stable patient is on amlodipine 5 mg and tolerating medication no side effects. She is also taking spironolactone hydrochlorothiazide 25-25 mg. Asthma: Breathing is stable, She is also on Flovent inhaler for asthma along with montelukast and Claritin Migraine last stable patient is on naratriptan as needed Patient is still working on her weight her BMI is elevated Follow-up 4 months [facility] Medical History Obesity (BMI 30.0-34.9) ALESIA (obstructive sleep apnea) Allergic rhinitis LFT elevation Elevated ferritin Asthma Migraine headache Diabetes 1.5, managed as type 2 Environmental allergies Hypertension, essential Surgical History History of laparoscopic cholecystectomy Family History Father Unknown family medical history Mother Unknown family medical history Brother No problems noted. Social History Housing: House Alcohol intake: never Patient Tobacco Use Status: Never used Tobacco e-Cigarette/Vaping Use: Never Used Second Hand Smoke Exposure: No service: No Current occupational status: employed Cognitive needs: No Hearing needs: No Vision needs: No Questionnaire PHQ-9 Over the last 2 weeks, how often have you been bothered by any of the following problems? 1. Little interest or pleasure in doing things: not at all 2. Feeling down, depressed, or hopeless: not at all 3. Trouble falling or staying asleep, or sleeping too much: not at all 4. Feeling tired or having little energy: not at all 5. Poor appetite or overeating: not at all 6. Feeling bad about yourself - or that you are a failure or have let yourself or your family down: not at all 7. Trouble concentrating on things, such as reading the newspaper or watching television: not at all 8. Moving or speaking so slowly that other people could have noticed. Or the opposite - being so fidgety or restless that you have been moving around a lot more than usual: not at all 9. Thoughts that you would be better off or of hurting yourself in some way: not at all Total score: 0 Depression Screening Interpretation: Negative Depression Screening Done: Yes 14933 - PHQ-9 Billing: Yes Source: Developed by Drs. Adam Kidd, Sherrie Lantigua, Grayson Wiseman and colleagues, with an educational gene from [employer]. Thrive Questionnaire Date Thrive assessed: 07/23/23 I am a: Patient What is your living situation today?: I have a steady place to live Within the past 12 months, did the food you bought not last and you didn't have the money to get more?: Never true Within the past 12 months, did you worry whether your food would run out before you got money to buy more?: Never true Do you have trouble paying for medicines?: No Do you have trouble getting transportation to medical appointments?: No Do you have trouble paying your heating and electricity bill?: No Do you have trouble taking care of your child, family member or friend?: No Do you have trouble with day-to-day activities such as bathing, preparing meals, shopping, managing finances, etc.?: No Are you currently unemployed and looking for a job?: No Are you interested in more education?: No Please select the resources that you would like help with: None Currently or been in a relationship where the following occur: no concerns reported THRIVE Score: 0 AUDIT C Alcohol Use Questionnaire (AUDIT-C) 1. How often do you have a drink containing alcohol?: Never 3. How often do you have six or more drinks on one occasion?: Never Total Score: 0 Score Reviewed/Action Taken: Yes TIM-7 AMB Questionnaire TIM-7 Date TIM - 7 assessed: 07/23/23 Feeling nervous, anxious, or on edge: 0 = Not at all Not being able to stop or control worryin = Not at all Worrying too much about different things: 0 = Not at all Trouble relaxin = Not at all Being so restless that it is hard to sit still: 0 = Not at all Becoming easily annoyed or irritable: 0 = Not at all Feeling afraid as if something awful might happen: 0 = Not at all Total TIM-7 score (0-4 normal; 5-9 mild; 10-14 moderate; 15-21 severe): 0 Source: Developed by Drs. Adam Kidd, Sherrie Lantigua, Grayson Wiseman and colleagues, with an educational gene from [employer]. TIM-7 Assessment Billing TIM-7 Assessment Tool: TIM-7 Assessment 67891 Review of Systems Const Denies chills and Denies fever(s) ENT Denies epistaxis and Denies nasal discharge Card Denies chest pain Resp Denies chest congestion, Denies cough and Denies hemoptysis GI Denies diarrhea and Denies nausea Skin/Breast Denies rash Neuro Reports no additional complaints Psych Reports no additional complaints Endo Reports no additional complaints Physical exam (Primary Care) Vital Signs: Last Vital Signs Pulse 100 07/23/23 15:13 BP 120/88 07/23/23 15:13 Pulse Ox 98 07/23/23 15:13 Oxygen Delivery Method Room Air 07/23/23 15:13 BMI result Body Mass Index 34.7 Tobacco/Smoking Status: Tobacco use Status Tobacco use date assessed 07/23/23 07/23/23 15:18 Patient Tobacco Use Status Never used Tobacco 07/23/23 15:18 e-Cigarette/Vaping Use Never Used 07/23/23 15:18 Depression Screening Interpretation: Negative Thrive Assessment: Date of Thrive Assessment Date Thrive assessed 01/22/23 07/23/23 15:18 Currently or been in a relationship where the following occur: no concerns reported Const General: cooperative, comfortable and no acute distress Orientation/consciousness: patient oriented x3 [facility] Head: Yes normocephalic Eyes General: appearance normal, both eyes and all related structures Neck Neck: Yes supple Resp Effort & Inspection: normal respiratory effort, no cough and no stridor Cardio Rhythm: regular rhythm Heart sounds: S1 normal heart sound present and S2 normal heart sound present Skin General skin exam: turgor normal Neuro General: patient oriented x3, tone normal and moves all extremities Extrem Right lower extremity: no edema Left lower extremity: no edema Assessment and Plan Assessment & Plan (1) Hypertension, essential: Code(s): I10 - Essential (primary) hypertension (2) Diabetes mellitus type 2 in obese: Code(s): E11.69 - Type 2 diabetes mellitus with other specified complication; E66.9 - Obesity, unspecified (3) Asthma, moderate persistent: Code(s): J45.40 - Moderate persistent asthma, uncomplicated Qualifiers: Asthma complication type: uncomplicated Qualified Code(s): J45.40 - Moderate persistent asthma, uncomplicated (4) Obesity due to excess calories: Code(s): E66.09 - Other obesity due to excess calories Qualifiers: Body mass index: BMI 35.0-35.9 Obesity classification: adult class 2 (BMI 35 - 39.9) Serious obesity comorbidity presence: with serious comorbidity Qualified Code(s): E66.01 - Morbid (severe) obesity due to excess calories; Z68.35 - Body mass index [BMI] 35.0-35.9, adult (5) Elevated ferritin: Code(s): R79.89 - Other specified abnormal findings of blood chemistry (6) Environmental allergies: Code(s): Z91.09 - Other allergy status, other than to drugs and biological substances (7) Migraine headache: Code(s): G43.909 - Migraine, unspecified, not intractable, without status migrainosus Qualifiers: Intractability: intractable Migraine type: with aura Status migrainosus presence: without status migrainosus Qualified Code(s): G43.119 - Migraine with aura, intractable, without status migrainosus (8) LFT elevation: Code(s): R79.89 - Other specified abnormal findings of blood chemistry Plan Patient is a 37-year-old female came in today for her regular 4 month follow-up appointment Ferritin level came back at 335 at recent labs, patient has already seen Hematology, she is hemochromatosis gene negative We will continue to monitor Allergies: patient is seeing Dr. Richards, patient is having allergy injections and is feeling much better She is to continue with oral antihistamine with occasional use of Flonase. LFTs are stable ALT has improved from before Diabetes: Patient is on metformin 850 mg hemoglobin A1c is 6.5 Medication list reviewed Blood pressure is stable patient is on amlodipine 5 mg and tolerating medication no side effects. She is also taking spironolactone hydrochlorothiazide 25-25 mg. Asthma: Breathing is stable, She is also on Flovent inhaler for asthma along with montelukast and Claritin Migraine last stable patient is on naratriptan as needed Patient is still working on her weight her BMI is elevated Follow-up 4 months Coding Level of Care Code Est Pt Level 4 (66681) Diagnoses Hypertension, essential I10 Diabetes mellitus type 2 in obese E11.69; E66.9 Moderate persistent asthma without complication J45.40 Asthma complication type: uncomplicated Class 2 severe obesity due to excess calories with serious comorbidity and body mass index (BMI) of 35.0 to 35.9 in adult E66.01; Z68.35 Body mass index: BMI 35.0-35.9 Obesity classification: adult class 2 (BMI 35 - 39.9) Serious obesity comorbidity presence: with serious comorbidity Elevated ferritin R79.89 Environmental allergies Z91.09 Intractable migraine with aura without status migrainosus G43.119 Intractability: intractable Migraine type: with aura Status migrainosus presence: without status migrainosus LFT elevation R79.89 Additional Codes TIM-7 Assessment Billing - TIM-7 Assessment Tool: TIM-7 Assessment [id number] ([id number])
== END 2023-07-23 16:05 | disposition home or self-care (01) ==
PROVIDERS: PCP Internal Medicine; Visit Provider Internal Medicine
DX: I10 Essential (primary) hypertension (principal); E11.69 Type 2 diabetes mellitus with other specified complication; E66.9 Obesity, unspecified; J45.40 Moderate persistent asthma, uncomplicated; E66.01 Morbid (severe) obesity due to excess calories; Z68.35 Body mass index [BMI] 35.0-35.9, adult; R79.89 Other specified abnormal findings of blood chemistry; Z91.09 Other allergy status, other than to drugs and biological substances; G43.119 Migraine with aura, intractable, without status migrainosus
CPT/HCPCS: 99214

== ENCOUNTER → 2023-10-31 13:52 | Outpatient (RCR) | payer OTHER, SELFPAY ==
[2020-07-19 09:59] VITALS: BP 121/77; PULSE 105; RESP 12; TEMP 36.6; O2SAT 95; BMI 35.6
--- NOTE | 2020-07-19 10:36 | PM.HEMONCCN ---
Subjective - Subjective Chief complaint: Consult for: Elevated ferritin level. Patient: new to practice Consult date: 07/19/20 Requesting Physician: Jose. Primary Care Provider: Johanny Garcia MD Medical Summary: DIAGNOSIS: Elevated ferritin level. Hemochromatosis DNA: Negative. HPI - Consult Narrative Reason for consult: Consult for: Elevated ferritin level. Narrative: Kaylee Soto is a pleasant 34 year old lady, who tells me that she was noted to have an elevated ferritin level. Review of her labs in the computer revealed the following ferritin trend: 08/05/2018: 130. 08/22/2018: 145. 07/07/2019 1:362. Iron studies from 08/22/2018: 92/363/25/145. She has had hemochromatosis DNA checked, twice in the past 05/28/2016 and again 08/22/2017 and it was negative. LFTs from 07/15/2019: 0.5/79/46/95. She had an ultrasound of the abdomen February 23 to which revealed: Liver of diffuse increased echogenicity. This is nonspecific, but consistent with diffuse fatty infiltration. Otherwise, unremarkable abdominal ultrasound. ROS: She feels tired all the time. This is been going on for a year. Appetite is up and down. Weight is stable. She gets migraine headaches. She does get dizzy at times. She has had palpitations over the past 3 years. She notices her heart rate is rapid. She had 24 hour cardiac monitoring which was negative. She has had nausea over the past couple of months. She denies abdominal pain. No heartburn indigestion. Her bowels are fluctuant. Sometimes diarrhea sometimes constipation. She denies any gross blood in the stools. No dysuria or hematuria. She has had a UTI in the past. [employer] history: She has Mirena IUD. She does not get her periods. She has had chronic joint pains. Sometimes her leg feels weak. She has history of anxiety and depression. Family history: She is adopted. 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 She is . She has no children. She denies smoking. She rarely drinks. One drink every 3-4 months. No drugs. Review of Systems - Constitutional Reports no additional constitutional complaints, Reports lack of energy, Denies weight loss - Eyes Reports no additional eye complaints - ENT Reports no additional ear, nose, mouth, and throat complaints - Cardiovascular Reports no additional cardiovascular complaints, Reports fast heart rate Comments: palpitations. - Respiratory Reports no additional respiratory complaints - Gastrointestinal Reports no additional gastrointestinal complaints, Denies bright, red blood in stools, Reports constipation, Reports diarrhea, Reports nausea - Genitourinary Reports no additional female genitourinary complaints - Musculoskeletal Reports no additional musculoskeletal complaints, Reports joint pain - Integumentary/Breasts Skin/Breast: Reports no additional skin complaints - Neurologic Reports no additional neurologic complaints - Psychiatric Reports no additional psychiatric complaints - Endocrine Reports no additional endocrine complaints - Hematologic/Lymphatic Reports no additional hematologic/lymphatic complaints - Allergic/Immunologic Reports no additional allergic/immunologic complaints Oncology Screenings - ECOG Performance Status ECOG Performance Status: 0 PMFSH Medical History: Medical History (Last Reviewed 07/19/20 @ 10:02 by Ivette Negrete) Allergic rhinitis Asthma Diabetes 1.5, managed as type 2 Elevated ferritin Environmental allergies Hypertension, essential LFT elevation Migraine headache Obesity (BMI 30.0-34.9) ALESIA (obstructive sleep apnea) Functional capacity: independent ambulation Patient : No Family History: Family History (Last Reviewed 07/19/20 @ 10:02 by Ivette Negrete) Father Unknown family medical history Mother Unknown family medical history Brother No problems noted. Surgical History: Surgical History (Last Reviewed 07/19/20 @ 10:02 by Ivette Negrete) History of laparoscopic cholecystectomy Social History: Social History (Last Updated 07/19/20 @ 10:02 by Ivette Negrete) Alcohol History: Alcohol intake: never Tobacco History: Smoking Status: Never smoker Substance Use History: Use of substances other than those prescribed or required for medical reasons: No Nutrition Assessment: Patient : No Smoking status: Never smoker Home Medications and Allergies Home Medications Medication Instructions Recorded Confirmed Type albuterol sulfate 90 mcg/actuation 2 puff PO Q6H PRN 12/10/19 07/19/20 History aerosol inhaler epinephrine 0.3 mg/0.3 mL 1 IM ONCE PRN 12/10/19 07/13/20 History injection, auto-injector albuterol sulfate 2.5 mg INHALATION Q6H PRN 01/14/20 07/19/20 History cholecalciferol (vitamin D3) 50 100 mcg PO DAILY cap 01/14/20 07/19/20 History mcg (2,000 unit) capsule fluticasone propionate 110 1 puff INHALATION BID 01/14/20 07/19/20 History mcg/actuation HFA aerosol inhaler naratriptan 2.5 mg tablet 2.5 mg PO DAILY PRN tab 01/14/20 07/19/20 History ascorbic acid (vitamin C) 500 mg 1,000 mg PO DAILY cap 03/14/20 07/19/20 History capsule ondansetron HCl [Zofran] 4 mg PO Q6H 07/19/20 07/19/20 History Allergies Allergy/AdvReac Type Severity Reaction Status Date / Time losartan [LOSARTAN] Allergy Unknown COUGH Verified 07/13/20 14:47 oxycodone Allergy Unknown Unknown Verified 07/13/20 14:47 acetaminophen [From VICODIN] AdvReac Unknown NAUSEA Verified 07/13/20 14:47 hydrocodone [From VICODIN] AdvReac Unknown NAUSEA Verified 07/13/20 14:47 lisinopril AdvReac Unknown cough Verified 07/13/20 14:47 metoprolol AdvReac Unknown dizziness/n Verified 07/13/20 14:47 ausea Physical Exam Vital signs: Vital Signs Temp 97.8 F 07/19/20 09:59 Pulse 105 H 07/19/20 09:59 Resp 12 07/19/20 09:59 BP 121/77 07/19/20 09:59 Pulse Ox 95 07/19/20 09:59 Intake & Output 07/18/20 07/19/20 07/19/20 18:59 06:59 18:59 Other: Weight 94.1 kg [place] Weight in Grams 21555 Weight 94.1 kg - Constitutional Present: no acute distress - Routine HEENT Exam Head: Present: normal inspection ENT: Present: mucous membranes moist - Routine Neck Exam Present: supple - Routine Respiratory Exam Present: CTAB - Routine Cardiovascular Exam Cardiovascular: Present: RRR, S1, S2 - Routine Abdominal Exam Present: nontender - Routine Rectal Exam Patient deferred: digital exam - Routine Extremities Exam Present: nontender - Routine Skin Exam Present: intact - Routine Neurological Exam Present: alert, oriented X3 - Detailed Neurological Exam: Coma Scale Eye Opening: Spontaneous (4) Verbal Response: Oriented (5) Motor Response: Obeys commands (6) [place] Coma Scale Total: 15 - Routine Psychiatric Exam Present: anxious Hem/Onc Consult Result - Labs CBC & Chem 7: 07/19/20 11:06 07/19/20 11:06 Assessment and Plan (1) Elevated ferritin Status: Acute This is a pleasant 34-year-old lady who has been noted to have elevated ferritin levels over the past 3 years. Review of her labs in the computer revealed the following ferritin trend: 08/05/2018: 130. 08/22/2018: 145. 07/07/2019 1:362. Iron studies from 08/22/2018: 92/363/25/145. Iron studies from today: 108/381//273. DIFFERENTIAL DIAGNOSIS: 1. HEMOCHROMATOSIS: She has had hemochromatosis DNA checked, twice in the past 05/28/2016 and again 08/22/2017 and it was negative. 2. LIVER DISEASE: LFTs from 07/15/2019: 0.5/79/46/95. LFTs from today: 0.8/196/43/78. She had an ultrasound of the abdomen February 23 to 5 which revealed: Liver of diffuse increased echogenicity. This is nonspecific, but consistent with diffuse fatty infiltration. Otherwise, unremarkable abdominal ultrasound. PLAN: She does not have hemochromatosis. Elevated Ferritin is mst likely related to liver disease. It could also be an acute phase reactant. I will refer her to GI for further evaluation. I wish her the best of luck. Thanks, CC: Dr. Garcia. Dr. Nina Salinas.
--- NOTE | 2020-07-19 11:20 | MHC.HEMONCMA ---
Pt presents for consult on elevated ferritin levels. History reviewed and labs drawn.
[2020-07-19 11:23] LABS: MANUAL DIFF FLAG NO
[2020-07-19 11:28] LABS: Basophils Percent Auto 0.5 % (0-2); Eosinophils Absolute Auto 0.2 X10*3/uL (0.0-0.4); Eosinophils Percent Auto 2.5 % (0-4); Hematocrit 41.5 % (37-47); Hemoglobin 14.1 g/dl (12.0-16.0); Imm Gran Abs Auto 0.04 X10*3/uL (0.00-0.03); Imm Gran Pct Auto 0.5 % (0.0-0.4); Lymphocytes Absolute Auto 2.3 X10*3/uL (1.2-4.9); Lymphocytes Percent Auto 27.2 % (20-40); Mean Corpuscular Hemoglobin 31.7 pg (27.0-33.0); Mean Corpuscular Volume 93.3 fL (80-98); Mean Platelet Volume 9.2 fL (9.4-12.3); Monocytes Absolute Auto 0.7 X10*3/uL (0.1-1.2); Monocytes Percent Auto 8.4 % (2-11); Neutrophils Absolute Auto 5.1 X10*3/uL (2.0-8.3); Neutrophils Percent Auto 60.9 % (45-73); Platelet Count 369 X10*3/uL (160-400); Red Blood Count 4.45 X10*6/uL (4.20-5.50); Red Cell Distribution Width 11.3 % (11.0-16.0); White Blood Count 8.3 X10*3/uL (4.8-10.8)
[2020-07-19 12:02] LABS: Alanine Aminotransferase 78 U/L (0-31); Albumin Level 4.6 g/dL (3.5-5.0); Alkaline Phosphatase 96 U/L (39-117); Anion Gap 16 (12-20); Aspartate Amino Transferase 43 U/L (5-31); Bilirubin Total 0.8 mg/dL (0.0-1.0); Blood Urea Nitrogen 10 mg/dL (9-16); Calcium 10.3 mg/dL (8.4-10.2); Carbon Dioxide 24 mmol/L (22-29); Chloride 99 mmol/L (96-108); Creatinine Clr Calc Pharmacy 90.9; Estimated Glomerular Filt Rate > 60; Glucose Random 214 mg/dL (60-115); Iron 108 mcg/dL (30-160); Percent Iron Saturation 28 % (15-50); Potassium 4.1 mmol/L (3.3-5.1); Sodium 135 mmol/L (135-145); Total Iron Binding Capacity 381 mcg/dL (228-428); Unsaturated Iron Binding 273 ug/dL
[2020-07-19 12:22] LABS: Ferritin 287 ng/mL (10-122)
== END | disposition home or self-care (01) ==
LOC: HO.ONC 07-19 09:56
PROVIDERS: PCP Internal Medicine; Referring Provider Internal Medicine; Visit Provider Internal Medicine Medical Oncology
DX: R79.0 Abnormal level of blood mineral (principal)
CPT/HCPCS: 36415; 80053; 82728; 83540; 85025; 99204

== ENCOUNTER 2024-02-25 10:30 | Outpatient (AMB) | payer OTHER, SELFPAY ==
[2024-02-25 10:33] VITALS: BP 118/80; PULSE 89; O2SAT 98; BMI 34.7
--- NOTE | 2024-02-25 10:33 | A.OFFPC_ITS ---
Vital Signs 02/25/24 10:33 Height 5 ft 4 in Weight 202 lb BMI 34.7 BP 118/80 Blood Pressure Location Lt brachial Position Sitting Pulse 89 Pulse Source Pulse Oximeter Pulse Oximetry (%) 98 Oxygen Delivery Method Room Air Intake Visit Reasons: Annual PE Allergies losartan [LOSARTAN] Allergy (Unknown, Verified 02/25/24 10:34) COUGH oxycodone Allergy (Unknown, Verified 02/25/24 10:34) Unknown acetaminophen [From VICODIN] Adverse Reaction (Unknown, Verified 02/25/24 10:34) NAUSEA hydrocodone [From VICODIN] Adverse Reaction (Unknown, Verified 02/25/24 10:34) NAUSEA lisinopril Adverse Reaction (Unknown, Verified 02/25/24 10:34) cough metoprolol Adverse Reaction (Unknown, Verified 02/25/24 10:34) dizziness/nausea Medication List - Last Reconciled 02/25/24 by Johanny Garcia MD albuterol sulfate 2.5 mg inhalation Q6H PRN albuterol sulfate 90 mcg/actuation 2 inhalations inhalation QID PRN amlodipine 5 mg PO DAILY 90 days ascorbic acid (vitamin C) 1,000 mg PO DAILY cholecalciferol (vitamin D3) 100 mcg PO DAILY epinephrine 1 IM ONCE PRN loratadine (Claritin) 10 mg PO DAILY 90 days metformin 850 mg PO DAILY montelukast (Singulair) 10 mg PO DAILY naratriptan 2.5 mg PO DAILY PRN Pulmicort Flexhaler 90 mcg/actuation (budesonide) 1 inh inhalation BID NS spironolacton-hydrochlorothiaz 25-25 mg 1 tab PO DAILY 30 days Tobacco use date assessed: 02/25/24 Dental Screening Dental Screen Date: 02/25/24 Did you have a dental visit in the last 12 months?: No Did you have a dental problem in the last 6 months where you did not have access to dental care?: No Was dental information given to patient?: Patient has dentist HPI Annual PE HPI Details - The patient is a 38-year-old female pr esenting for a physical exam appointment. - Type 2 Diabetes Mellitus: Previously h ad labs done in June, of this year, hemoglobin A1c 6.3 today - Hypertension: Blood pressure 118 syst olic patient has lost weight, I am stopping amlodipine she may continue with spironolactone hydrochlorothiazide - Asthma: Reports improvement in asthma symptoms with a new inhaler, patient is on Pulmicort now - Allergic Rhinitis: Managed with lorata dine. - Migraine: Rare occurrences since the l ast visit with minimal recent episodes. Health Maintenance - Up to date on OBGYN checks. - Discussing lifestyle changes, with not iceable weight loss and exercise regimens involving Pilates and treadmill use. - low vaccine given. [place] of Care: OBGYN Diagnostic results - A1c performed as part of laboratory te sts; 6.3% checked today Review of Systems - General: Denies nausea and vomiting - Neurological: Denies headaches - Respiratory: Reports improved breathin g - Ear nose throat: No sore throat no hearing difficulty no ear pain - Cardiovascular: No syncope, no chest pain, no palpitations - Gastrointestinal: No nausea vomiting or diarrhea - Endocrine: No polyuria polydipsia no heat intolerance - Genitourinary: No dysuria - Skin: No new complaints Physical Exam General: Cooperative, healthy appearing, comfortable, no acute distress Orientation: Patient oriented x3 Limitations: None Head: Normal to inspection Ears: Within normal limit visually Nose: Normal external nose present Face and sinus: Normal facial exam Eyes: Appearance normal, extraocular movement intact pupils reactive Neck: Normal visual inspection and supple Respiratory: Normal respiratory effort and able to speak in complete sentences. Clear to auscultation, no stridor Cardiovascular: S1 and S2, blood pressure 118/80 GI: Normal to inspection. Soft to palpation and nontender Skin: Turgor normal, no acute findings Neuro: Patient oriented x3, motor sensory intact, balance intact, tandem pass Extremities: Normal to inspection, no swelling of ankles, joints are okay Patient Instructions - Stop taking amlodipine and begin monit oring blood pressure at home; log readings and report any increase above 140. - Continue current exercise routine, inc luding Pilates and treadmill walking. Flu vaccine given - Schedule fasting lab work a couple of days before the next visit in mid-April. - Follow up if blood pressure increases, and consider restarting amlodipine if necessary. Follow-up mid April, physical exam 1 year [facility] Medical History Obesity (BMI 30.0-34.9) ALESIA (obstructive sleep apnea) Allergic rhinitis LFT elevation Elevated ferritin Asthma Migraine headache Diabetes 1.5, managed as type 2 Environmental allergies Hypertension, essential Surgical History History of laparoscopic cholecystectomy Family History Father Unknown family medical history Mother Unknown family medical history Brother No problems noted. Social History Housing: House Alcohol intake: never Patient Tobacco Use Status: Never used Tobacco e-Cigarette/Vaping Use: Never Used Second Hand Smoke Exposure: No service: No Current occupational status: employed Cognitive needs: No Hearing needs: No Vision needs: No Questionnaire PHQ-9 Over the last 2 weeks, how often have you been bothered by any of the following problems? 1. Little interest or pleasure in doing things: not at all 2. Feeling down, depressed, or hopeless: not at all 3. Trouble falling or staying asleep, or sleeping too much: not at all 4. Feeling tired or having little energy: not at all 5. Poor appetite or overeating: not at all 6. Feeling bad about yourself - or that you are a failure or have let yourself or your family down: not at all 7. Trouble concentrating on things, such as reading the newspaper or watching television: not at all 8. Moving or speaking so slowly that other people could have noticed. Or the opposite - being so fidgety or restless that you have been moving around a lot more than usual: not at all 9. Thoughts that you would be better off or of hurting yourself in some way: not at all Total score: 0 Depression Screening Interpretation: Negative Depression Screening Done: Yes 57135 - PHQ-9 Billing: Yes Source: Developed by Drs. Adam Kidd, Sherrie Lantigua, Grayson Wiseman and colleagues, with an educational gene from [employer]. Thrive Questionnaire Date Thrive assessed: 02/25/24 I am a: Patient What is your living situation today?: I have a steady place to live Within the past 12 months, did the food you bought not last and you didn't have the money to get more?: Never true Within the past 12 months, did you worry whether your food would run out before you got money to buy more?: Never true Do you have trouble paying for medicines?: No Do you have trouble getting transportation to medical appointments?: No Do you have trouble paying your heating and electricity bill?: No Do you have trouble taking care of your child, family member or friend?: No Do you have trouble with day-to-day activities such as bathing, preparing meals, shopping, managing finances, etc.?: No Are you currently unemployed and looking for a job?: No Are you interested in more education?: No Please select the resources that you would like help with: None Currently or been in a relationship where the following occur: No concerns reported THRIVE Score: 0 AUDIT C Alcohol Use Questionnaire (AUDIT-C) 1. How often do you have a drink containing alcohol?: Never 3. How often do you have six or more drinks on one occasion?: Never Total Score: 0 Score Reviewed/Action Taken: Yes TIM-7 AMB Questionnaire TIM-7 Date TIM - 7 assessed: 02/25/24 Feeling nervous, anxious, or on edge: 0 = Not at all Not being able to stop or control worryin = Not at all Worrying too much about different things: 0 = Not at all Trouble relaxin = Not at all Being so restless that it is hard to sit still: 0 = Not at all Becoming easily annoyed or irritable: 0 = Not at all Feeling afraid as if something awful might happen: 0 = Not at all Total TIM-7 score (0-4 normal; 5-9 mild; 10-14 moderate; 15-21 severe): 0 Source: Developed by Drs. Adam Kidd, Sherrie Lantigua, Grayson Wiseman and colleagues, with an educational gene from [employer]. TIM-7 Assessment Billing TIM-7 Assessment Tool: TIM-7 Assessment 04612 Physical exam (Primary Care) Vital Signs: Last Vital Signs Pulse 89 02/25/24 10:33 BP 118/80 02/25/24 10:33 Pulse Ox 98 02/25/24 10:33 Oxygen Delivery Method Room Air 02/25/24 10:33 BMI result Body Mass Index 34.7 Tobacco/Smoking Status: Tobacco use Status Tobacco use date assessed 02/25/24 02/25/24 10:34 Patient Tobacco Use Status Never used Tobacco 02/25/24 10:34 e-Cigarette/Vaping Use Never Used 02/25/24 10:34 PHQ-9: PHQ-9 Score PHQ-9: Total score 0 02/25/24 11:06 Depression Screening Interpretation: Negative Thrive Assessment: Date of Thrive Assessment Date Thrive assessed 02/25/24 02/25/24 10:42 Currently or been in a relationship where the following occur: No concerns reported Office Procedures Flu Questionnaire Does the patient have a severe egg allergy?: No Does the patient have severe life threatening allergies?: No Does the patient have a fever or illness today?: No Has the patient ever had Guillain-Eupora Syndrome?: No Has the patient ever had any past reaction to a flu shot?: No Immunizations Fluarix Triv [id number] (PF) 45 mcg (15 mcg x 3)/0.5 mL IM syringe Performing Provider: Johanny Garcia MD Performing Location: [facility] Administered by: PARAS Leo on 02/25/24 11:05 Dose Route Admin Location Dispensed Lot Number Expiration Date NDC Car[employer]andy [employer] 0.5 mL IM Right Deltoid 0.5 mL [id number] 08/24/24 [id number] Intense VIS Given Date VIS Provided VIS Publication Date 02/25/24 Single Vaccine 20 Eligibility Eligibility Date Funding Source Not [facility] Eligible 02/25/24 Private Coding Level of Care Code Est Pt Level 3 (02498) Est Pt Prev Care 18-39y(10225) Diagnoses Encounter for general adult medical examination with abnormal findings Z00.01 Diabetes mellitus type 2 in obese E11.69; E66.9 Class 2 severe obesity due to excess calories with serious comorbidity and body mass index (BMI) of 35.0 to 35.9 in adult E66.01; Z68.35 Body mass index: BMI 35.0-35.9 Obesity classification: adult class 2 (BMI 35 - 39.9) Serious obesity comorbidity presence: with serious comorbidity Moderate persistent asthma without complication J45.40 Asthma complication type: uncomplicated Hypertension, essential I10 Environmental allergies Z91.09 Intractable migraine with aura without status migrainosus G43.119 Intractability: intractable Migraine type: with aura Status migrainosus presence: without status migrainosus Additional Codes TIM-7 Assessment Billing - TIM-7 Assessment Tool: TIM-7 Assessment 86091 ([id number]) PHQ-9 - 14779 - PHQ-9 Billing: Yes ([id number]) Assessment & Plan Assessment & Plan (1) Encounter for general adult medical examination with abnormal findings: Code(s): Z00.01 - Encounter for general adult medical examination with abnormal findings Category: Medical (2) Diabetes mellitus type 2 in obese: Code(s): E11.69 - Type 2 diabetes mellitus with other specified complication; E66.9 - Obe sity, unspecified Category: Medical (3) Obesity due to excess calories: Code(s): E66.09 - Other obesity due to excess calories Category: Medical Qualifiers: Body mass index: BMI 35.0-35.9 Obesity classification: adult class 2 (BMI 35 - 39.9) Serious obesity comorbidity presence: with serious comorbidity Qualified Code(s): E66.01 - Morbid (severe) obesity due to excess calories; Z68.35 - Body mass index [BMI] 35.0-35.9, adult (4) Asthma, moderate persistent: Code(s): J45.40 - Moderate persistent asthma, uncomplicated Category: Medical Qualifiers: Asthma complication type: uncomplicated Qualified Code(s): J45.40 - Moderate persistent asthma, uncomplicated (5) Hypertension, essential: Code(s): I10 - Essential (primary) hypertension Category: Medical (6) Environmental allergies: Code(s): Z91.09 - Other allergy status, other than to drugs and biological substances Category: Medical (7) Migraine headache: Code(s): G43.909 - Migraine, unspecified, not intractable, without status migrainosus Category: Medical Qualifiers: Intractability: intractable Migraine type: with aura Status migrainosus presence: without status migrainosus Qualified Code(s): G43.119 - Migraine with aura, intractable, without status migrainosus Plan - The patient is a 38-year-old female presenting for a physical exam appointment. - Type 2 Diabetes Mellitus: Previously had labs done in June, of this year, hemoglobin A1c 6.3 today - Hypertension: Blood pressure 118 systolic patient has lost weight, I am stopping amlodipine she may continue with spironolactone hydrochlorothiazide - Asthma: Reports improvement in asthma symptoms with a new inhaler, patient is on Pulmicort now - Allergic Rhinitis: Managed with loratadine. - Migraine: Rare occurrences since the last visit with minimal recent episodes. Health Maintenance - Up to date on OBGYN checks. - Discussing lifestyle changes, with noticeable weight loss and exercise regimens involving Pilates and treadmill use. - low vaccine given. [place] [facility]: OBGYN Diagnostic results - A1c performed as part of laboratory tests; 6.3% checked today Review of Systems - General: Denies nausea and vomiting - Neurological: Denies headaches - Respiratory: Reports improved breathing - Ear nose throat: No sore throat no hearing difficulty no ear pain - Cardiovascular: No syncope, no chest pain, no palpitations - Gastrointestinal: No nausea vomiting or diarrhea - Endocrine: No polyuria polydipsia no heat intolerance - Genitourinary: No dysuria - Skin: No new complaints Physical Exam General: Cooperative, healthy appearing, comfortable, no acute distress Orientation: Patient oriented x3 Limitations: None Head: Normal to inspection Ears: Within normal limit visually Nose: Normal external nose present Face and sinus: Normal facial exam Eyes: Appearance normal, extraocular movement intact pupils reactive Neck: Normal visual inspection and supple Respiratory: Normal respiratory effort and able to speak in complete sentences. Clear to auscultation, no stridor Cardiovascular: S1 and S2, blood pressure 118/80 GI: Normal to inspection. Soft to palpation and nontender Skin: Turgor normal, no acute findings Neuro: Patient oriented x3, motor sensory intact, balance intact, tandem pass Extremities: Normal to inspection, no swelling of ankles, joints are okay Patient Instructions - Stop taking amlodipine and begin monitoring blood pressure at home; log readings and report any increase above 140. - Continue current exercise routine, including Pilates and treadmill walking. Flu vaccine given - Schedule fasting lab work a couple of days before the next visit in mid-April. - Follow up if blood pressure increases, and consider restarting amlodipine if necessary. Follow-up mid April, physical exam 1 year Orders: Orders Comprehensive Wiseman. Panel Fast 3 Months E11.69 - Type 2 diabetes mellitus with other specified complication, E66.01 - Morbid (severe) obesity due to excess calories, E66.9 - Obesity, unspecified, G43.119 - Migraine with aura, intractable, without status migrainosus, I10 - Essential (primary) hypertension, J45.40 - Moderate persistent asthma, uncomplicated, Z00.01 - Encounter for general adult medical examination with abnormal findings, Z68.35 - Body mass index [BMI] 35.0-35.9, adult, Z91.09 - Other allergy status, other than to drugs and biological substances Influenza [id number] Immunization Today Z23 - Encounter for immunization Hemoglobin A1c 3 Months E11.69 - Type 2 diabetes mellitus with other specified complication, E66.01 - Morbid (severe) obesity due to excess calories, E66.9 - Obesity, unspecified, G43.119 - Migraine with aura, intractable, without status migrainosus, I10 - Essential (primary) hypertension, J45.40 - Moderate persistent asthma, uncomplicated, Z00.01 - Encounter for general adult medical examination with abnormal findings, Z68.35 - Body mass index [BMI] 35.0-35.9, adult, Z91.09 - Other allergy status, other than to drugs and biological substances Microalbumin, Random (w Creat) 3 Months E11.69 - Type 2 diabetes mellitus with other specified complication, E66.01 - Morbid (severe) obesity due to excess calories, E66.9 - Obesity, unspecified, G43.119 - Migraine with aura, intractable, without status migrainosus, I10 - Essential (primary) hypertension, J45.40 - Moderate persistent asthma, uncomplicated, Z00.01 - Encounter for general adult medical examination with abnormal findings, Z68.35 - Body mass index [BMI] 35.0-35.9, adult, Z91.09 - Other allergy status, other than to drugs and biological substances Complete Blood Count Auto Diff 3 Months E11.69 - Type 2 diabetes mellitus with other specified complication, E66.01 - Morbid (severe) obesity due to excess calories, E66.9 - Obesity, unspecified, G43.119 - Migraine with aura, intractable, without status migrainosus, I10 - Essential (primary) hypertension, J45.40 - Moderate persistent asthma, uncomplicated, Z00.01 - Encounter for general adult medical examination with abnormal findings, Z68.35 - Body mass index [BMI] 35.0-35.9, adult, Z91.09 - Other allergy status, other than to drugs and biological substances Lipid Panel 3 Months E11.69 - Type 2 diabetes mellitus with other specified complication, E66.01 - Morbid (severe) obesity due to excess calories, E66.9 - Obesity, unspecified, G43.119 - Migraine with aura, intractable, without status migrainosus, I10 - Essential (primary) hypertension, J45.40 - Moderate persistent asthma, uncomplicated, Z00.01 - Encounter for general adult medical examination with abnormal findings, Z68.35 - Body mass index [BMI] 35.0-35.9, adult, Z91.09 - Other allergy status, other than to drugs and biological substances Medications: On Hold amlodipine Hold Comment: lost wt 5 mg PO DAILY 90 days 90 tabs 0RF
--- OUTSIDE RECORDS SUMMARY | 2024-02-25 10:42 | XMS_ITS | Continuity of Care Document ---
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 Increase in asthma symptoms No If yes, inhaler use: Reaction to last injections: No If yes: ?? Allergy Symptoms: Other: ?? Missed: Dose Aware of Vial Test Notes:?? [email or web address] Not available 02/24/2024 12:04:02 Plan of Treatment Reminders Order Date Submit Date Provider Last Modified By Organization Details Last Modified Time Details Appointments [facility]- Allergy f-up 6mon 2024 09:00A M BERNARDO CARBALLO PA-C Not available Not available Not available Lab None recorded . Referral None recorded . Procedures None recorded . Surgeries None recorded . Imaging None recorded . Medication Orders None recorded . Patient TargetsNo targets recorded. Patient InstructionsNo instructions recorded. Reason for Referral None Reported. Problems Name Problem SNOMED Code Status Onset Date Resolution Date Notes Provider Name and Address Organization Details Recorded Time Type 2 diabetes mellitus without complicat ion 967006133 Active 2021 Type 2 diabetes mellitus without complicat ions; Note: Date Diagnosed : 09/27/2021 9:02 AM (E11.9) Not Available [facility] 02:39:44 Bleeding from nose [id number] Active 2022 Epistaxis ; Note: Date Diagnosed : 04/11/2022 8:55 AM (R04.0) Not Available [facility] 02:39:40 Allergic rhinitis 22571445 Active 2023 Allergic rhinitis: Due to other allergen; Note: Date Diagnosed : 03/14/2023 9:39 AM (477.8) Note: Date Diagnosed : 03/14/2023 9:39 AM (477.8) Allergi c rhinitis: Due to other allergen; Note: Date Diagnosed : 01/31/2023 3:03 PM (477.8) Note: Date Diagnosed : 01/31/2023 3:03 PM (477.8) ; Start Date : Allergi c rhinitis: Due to other allergen; Note: Date Diagnosed : 3:41 PM (477.8) Note: Date Diagnosed : 3:41 PM (477.8) ; Start Date : Allergi c rhinitis: Due to other allergen; Note: Date Diagnosed : 1:51 PM (477.8) Note: Date Diagnosed : 1:51 PM (477.8) ; Start Date : Allergi c rhinitis: Due to other allergen; Note: Date Diagnosed : 2:53 PM (477.8) Note: Date Diagnosed : 2:53 PM (477.8) ; Start Date : Allergi c rhinitis: Due to other allergen; Note: Date Diagnosed : 11/22/2022 10:48 AM (477.8) Note: Date Diagnosed : 11/22/2022 10:48 AM (477.8) ; Start Date : Allergi c rhinitis: Due to other allergen; Note: Date Diagnosed : 11/06/2022 1:19 PM (477.8) Note: Date Diagnosed : 11/06/2022 1:19 PM (477.8) ; Start Date : Allergi c rhinitis: Due to other allergen; Note: Date Diagnosed : 10/16/2022 3:43 PM (477.8) Note: Date Diagnosed : 10/16/2022 3:43 PM (477.8) ; Start Date : Allergi c rhinitis: Due to other allergen; Note: Date Diagnosed : 09/27/2022 9:45 AM (477.8) Note: Date Diagnosed : 09/27/2022 9:45 AM (477.8) ; Start Date : Allergi c rhinitis: Due to other allergen; Note: Date Diagnosed : 09/21/2022 9:16 AM (477.8) Note: Date Diagnosed : 09/21/2022 9:16 AM (477.8) ; Start Date : Allergi c rhinitis: Due to other allergen; Note: Date Diagnosed : 09/06/2022 11:25 AM (477.8) Note: Date Diagnosed : 09/06/2022 11:25 AM (477.8) ; Start Date : Allergi c rhinitis: Due to other allergen; Note: Date Diagnosed : 08/30/2022 2:31 PM (477.8) Note: Date Diagnosed : 08/30/2022 2:31 PM (477.8) ; Start Date : Allergi c rhinitis: Due to other allergen; Note: Date Diagnosed : 08/21/2022 3:11 PM (477.8) Note: Date Diagnosed : 08/21/2022 3:11 PM (477.8) ; Start Date : Allergi c rhinitis: Due to other allergen; Note: Date Diagnosed : 07/26/2022 11:38 AM (477.8) Note: Date Diagnosed : 07/26/2022 11:38 AM (477.8) ; Start Date : Allergi c rhinitis: Due to other allergen; Note: Date Diagnosed : 06/05/2022 10:11 AM (477.8) Note: Date Diagnosed : 06/05/2022 10:11 AM (477.8) ; Start Date : Allergi c rhinitis: Due to other allergen; Note: Date Diagnosed : 04/11/2022 9:09 AM (477.8) Note: Date Diagnosed : 04/11/2022 9:09 AM (477.8) ; Start Date : 3 Allergi c rhinitis: Due to other allergen; Note: Date Diagnosed : 03/28/2022 9:14 AM (477.8) Note: Date Diagnosed : 03/28/2022 9:14 AM (477.8) ; Start Date : 3 Allergi c rhinitis: Due to other allergen; Note: Date Diagnosed : 03/08/2022 2:40 PM (477.8) Note: Date Diagnosed : 03/08/2022 2:40 PM (477.8) ; Start Date : 3 Allergi c rhinitis: Due to other allergen; Note: Date Diagnosed : 02/28/2022 9:11 AM (477.8) Note: Date Diagnosed : 02/28/2022 9:11 AM (477.8) ; Start Date : 3 Allergi c rhinitis: Due to other allergen; Note: Date Diagnosed : 2 9:08 AM (477.8) Note: Date Diagnosed : 2 9:08 AM (477.8) ; Start Date : 2 Allergi c rhinitis: Due to other allergen; Note: Date Diagnosed : 11:19 AM (477.8) Note: Date Diagnosed : 2 11:19 AM (477.8) ; Start Date : 2 Allergi c rhinitis: Due to other allergen; Note: Date Diagnosed : 2 9:13 AM (477.8) Note: Date Diagnosed : 2 9:13 AM (477.8) ; Start Date : 2 Allergi c rhinitis: Due to other allergen; Note: Date Diagnosed : 9:38 AM (477.8) Note: Date Diagnosed : 2 9:38 AM (477.8) ; Start Date : 2 Allergi c rhinitis: Due to other allergen; Note: Date Diagnosed : 11/22/2021 9:31 AM (477.8) Note Not Available [facility] 4 01:04:43 Nasal congestio n 12822718 Active 2019 Nasal congestio n; Note: Date Diagnosed : 04/29/2019 11:19 AM (R09.81) Not Available [facility] 4 02:39:41 Essential hypertens ion 87869556 Active 2019 Essential (primary) hypertens ion; Note: Date Diagnosed : 04/29/2019 11:20 AM (I10) Not Available [facility] 4 02:39:50 Migraine without aura, not refractor y 111102318 Active 2019 Migraine without aura, not intractab le, without status migrainos us; Note: Date Diagnosed : 04/29/2019 11:19 AM (G43.009) Not Available [facility] 4 02:39:40 Chronic rhinitis 28235079 Active 2019 Chronic rhinitis; Note: Date Diagnosed : 04/29/2019 11:19 AM (J31.0) Not Available [facility] 4 02:39:44 Headache 87422185 Active 2019 Facial pain NOS; Note: Date Diagnosed : 04/29/2019 11:19 AM (R51) Not Available [facility] 4 02:39:42 Snoring 99943497 Active 2020 Snoring; Note: Date Diagnosed : 1 8:53 AM (R06.83) Not Available [facility] 4 02:39:46 History of SARS-CoV- 2 [id number] 5727632 Active 2021 Personal history of COVID-19; Note: Date Diagnosed : 2 3:13 PM (Z86.16) Not Available [facility] 4 02:39:49 Uncomplic ated mild persisten t asthma 763236776 Active 2019 Mild persisten t asthma NOS; Note: Date Diagnosed : 02/01/2020 10:37 AM (J45.30) Not Available [facility] 4 02:39:40 Perennial allergic rhinitis 703715123 Active 2023 BLANCA MEEKS RN [address] [facility],[address], [place], [address] , [place] - [facility] 11:24:20 Problem Notes None recorded. Procedures Surgical History Date Name Laterality Status Provider Name and Address Organization Details Recorded Time 02/24/20 24 Allergy Immunotherapy Injections completed JOSE SMITH [address], [place], [address], [place] [facility] 02/24/2024 12:05:12 02/17/20 24 Allergy Immunotherapy Injections completed BLANCA MEEKS RN 100 [facility],[address], [place], [address], [place] [facility] 02/17/2024 13:33:14 02/06/20 24 Allergy Immunotherapy Injections completed BLANCA MEEKS RN [address] [facility] [place],[address] [place] [address], [phone], [place] [facility] 02/06/2024 10:53:39 01/28/20 24 Allergy Immunotherapy Injections completed BLANCA MEEKS RN 100 [facility],[address] [place] [address], [phone], [place] [facility] 01/28/2024 12:07:01 01/21/20 24 Allergy Immunotherapy Injections completed BLANCA MEEKS RN [address] [facility] [place],[address] [place] [address], [address], [place] [facility] 01/21/2024 13:20:03 01/02/20 24 Allergy Immunotherapy Injections completed BLANCA MEEKS RN 100 [facility],[address] [place] [address], [address], [place] [facility] 01/02/2024 13:31:09 12/26/19 24 Allergy Immunotherapy Injections completed BLANCA MEEKS RN 100 [facility],[address] [place] [address], [address], [place] [facility] 12/26/2023 14:09:15 12/19/19 24 Allergy Immunotherapy Injections completed JOSE SMITH [address] [facility] [place], [place], [address], [place] [facility] 12/19/2023 10:09:52 12/12/19 24 Allergy Immunotherapy Injections completed BERNADETTE LOZADAC, RMA [address], [place], [address], [place] [facility] 12/12/2023 11:34:33 12/02/19 24 Allergy Immunotherapy Injections completed BLANCA MEEKS RN [address], [place], [address], [place] [facility] 12/02/2023 09:39:54 11/28/19 24 Allergy Immunotherapy Injections completed BERNADETTE LOZADAC, RMA [address], [place], [address], [place] [facility] 11/28/2023 10:41:02 11/21/19 24 Allergy Immunotherapy Injections completed BERNADETTE LOZADAC, RMA [address], [place], [address], [place] [facility] 11/21/2023 10:30:36 11/14/19 24 Allergy Immunotherapy Injections completed BERNADETTE DEAN, RMA [address], [place], [address], [place] [facility] 11/14/2023 10:59:06 10/31/19 24 Allergy Immunotherapy Injections completed DAVIDA SMITHA [address], [place], [address], [place] [facility] 10/31/2023 12:08:09 10/24/19 24 Allergy Immunotherapy Injections completed BLANCA MEEKS RN [address], [place], [address], [place] [facility] 10/24/2023 10:43:59 10/17/19 24 Allergy Immunotherapy Injections completed BERNADETTE DEAN, RMA [address], [place], [address], [place] [facility] 10/17/2023 11:52:31 10/09/19 24 Allergy Immunotherapy Injections completed DAVIDA SMITHA [address], [place], [address], [place] [facility] 10/09/2023 10:01:24 10/03/19 24 Allergy Immunotherapy Injections completed BLANCA MEEKS RN [address], [place], [address], [place] [facility] 10/03/2023 10:24:47 09/26/19 24 Allergy Immunotherapy Injections completed BLANCA MEEKS RN [address], [place], [address], [place] [facility] 09/26/2023 14:45:33 09/19/19 24 Allergy Immunotherapy Injections completed BERNADETTE DEAN, RMA [address], [place], [address], [place] [facility] 09/19/2023 12:07:44 09/12/19 24 Allergy Immunotherapy Injections completed BERNADETTE DEAN, RMA [address], [place], [address], [place] [facility] 09/12/2023 12:55:19 09/05/19 24 Allergy Immunotherapy Injections completed BERNADETTE LOZADAC, RMA [address], [place], [address], [place] [facility] 09/05/2023 11:15:09 08/22/19 24 Allergy Immunotherapy Injections completed BERNADETTE DEAN, RMA [address], [place], [address], [place] [facility] 08/22/2023 12:12:17 08/15/19 24 Allergy Immunotherapy Injections completed RAFY HONEYCUTT RMAngelina [address], [place], [address], [place] [facility] 08/15/2023 09:54:41 08/08/19 24 Allergy Immunotherapy Injections completed BLANCA MEEKS RN [address], [place], [address], [place] [facility] 08/08/2023 11:08:44 08/01/19 24 Allergy Immunotherapy Injections completed BERNADETTE DEAN, RMA [address], [place], [address], [place] [facility] 08/01/2023 10:34:54 07/25/19 24 Allergy Immunotherapy Injections completed JOSE SMITH 100 [facility],[address], [address], [facility] - [facility] 07/25/2023 14:35:33 07/11/19 24 Allergy Immunotherapy Injections completed BLANCA MEEKS RN 100 [facility],[address], [address], [facility] - [facility] 07/11/2023 11:25:39 Imaging Results None recorded. Procedure Notes None recorded. Medical Equipment None Reported. Medications Name Sig Start Date Stop Date Status Note LastModified by Organization Details LastModified Time cetirizin e 10 mg tablet 2020 active Medicati on ID: [id number] B rand Name: cetirizi ne Send Method: E-Prescr ibed Sub s Allowed: subs OK Medic ationGen ericName : cetirizi ne Not Available Not Available Not Available spironola ctone 25 mg-hydroc hlorothia zide 25 mg tablet TAKE 1 TAB ORALLY DAILY FOR 30 DAYS MISSED APT IN MAR, NEED F.U APT FOR FURTHER REFILLS active Not Available Not Available No t Available phenazopy ridine 200 mg tablet TAKE 1 TABLET ORALLY 3 TIMES A DAY FOR 3 DAYS 12/01 completed Not Available Not Available Not Available ondansetr on HCl 4 mg tablet 04/11 completed Medicati on ID: [id number] D uration Value: 30 Brand Name: ondanset ravi HCl Send Method: E-Prescr ibed Sub s Allowed: subs OK Speci al Instruct ion: PLEASE SEE ATTACHED FOR DETAILED DIRECTIO NS Medic ationGen ericName : ondanset ravi HCl Not Available Not Available Not Available metformin 850 mg tablet TAKE 1 TABLET BY MOUTH EVERY DAY active Not Available Not Available No t Available amlodipin e 5 mg tablet TAKE 1 TABLET BY MOUTH EVERY DAY active Not Available Not Available No t Available sulfameth oxazole 800 mg-trimet hoprim 160 mg tablet TAKE 1 TABLET BY MOUTH TWICE A DAY FOR 5 DAYS 12/01 completed Not Available Not Available Not Available meclizine 25 mg tablet TAKE 1 TABLET (25 MG) BY MOUTH 2 TIMES A DAY NEEDED FOR DIZZINES S FOR 30 DAYS 12/01 completed Not Available Not Available Not Available amlodipin e 10 mg tablet 2019 active Medicati on ID: [id number] D uration Value: 90 Brand Name: amlodipi ne Send Method: E-Prescr ibed Sub s Allowed: subs OK Speci al Instruct ion: TAKE 1 TABLET BY MOUTH EVERY DAY Medi cationGe nericNam e: amlodipi ne Not Available Not Available Not Available benzonata te 100 mg capsule TAKE 1 CAPSULE ORALLY 2 TIMES A DAY NEEDED FOR COUGH FOR 7 DAYS 12/01 completed Not Available Not Available Not Available monteluka st 10 mg tablet TAKE 1 TABLET BY MOUTH EVERY DAY active Not Available Not Available No t Available epinephri ne 0.3 mg/0.3 mL injection , auto-inje ctor Inject 1 pen injector single dose as needed active Not Available Not Available No t Available albuterol sulfate HFA 90 mcg/actua tion aerosol inhaler INHALE 2 PUFFS INTO LUNGS 4 TIMES A DAY NEEDED FOR SHORTNES S OF BREATH OR WHEEZING active Not Available Not Available No t Available fluticaso ne propionat e 50 mcg/actua tion nasal spray,azeb pension 2 puff into both nostrils 2019 active Medicati on ID: [id number] D uration Value: 30 Brand Name: fluticas one propiona te Send Method: E-Prescr ibed Sub s Allowed: subs OK Medic ationGen ericName : fluticas one propiona te Not Available Not Available Not Available naratript an 2.5 mg tablet TAKE 1 TAB BY MOUTH DAILY NEEDED FOR MIGRAINE HEADACHE DO NOT EXCEED 2 DOSES PER 24 HRS active Not Available Not Available No t Available loratadin e 10 mg tablet TAKE 1 TABLET BY MOUTH EVERY DAY FOR 90 DAYS active Not Available Not Available No t Available Flovent HFA 110 mcg/actua tion aerosol inhaler 05/15 completed Medicati on ID: [id number] D uration Value: 90 Brand Name: Flovent HFA Send Method: E-Prescr ibed Sub s Allowed: subs OK Speci al Instruct ion: INHALE 1 PUFF TWICE A DAY NEEDED FOR 30 DAYS Med icationG enericNa me: Flovent HFA Not Available Not Available Not Available olopatadi ne 0.2 % eye drops PLACE 1 DROP INTO THE EYE(S) DAILY NEEDED FOR ITCHING active Not Available Not Available No t Available Pulmicort Flexhaler 90 mcg/actua tion breath activated INHALE 1 PUFF TWICE A DAY active Not Available Not Available No t Available Vitals None Recorded Social History None recorded. Functional Status None recorded. Mental Status None recorded. Family History Nothing Reported. Medical History No medical history recorded. Gynecological HistoryNo gynecological history recorded. Obstetrics History GPAL:G 0 P 0 0 0 0 Past Encounters Encounter ID Performer Location Encounter Start Date Encounter Closed Date Diagnosis/Indication Diagnosis SNOMED-CT Code Diagnosis ICD10 Code [id number] BLANCA MEEKS RN Allergy [address] [place] [address] 01/28/2024 10:01:37 01/28/2024 12:07:33 Perennial allergic rhinitis 235876045 J30.89 [id number] BLANCA MEEKS RN Allergy [address] [place] [address] 02/06/2024 09:58:03 02/06/2024 10:54:13 Perennial allergic rhinitis 640045411 J30.89 [id number] BLANCA MEEKS RN Allergy [address] [place] [address] 02/17/2024 09:46:05 02/17/2024 13:33:45 Perennial allergic rhinitis 580832564 J30.89 [id number] JOSE SMITH Allergy [address] [place] [address] [address] [place] [address] 02/24/2024 10:30:20 02/24/2024 12:07:35 Perennial allergic rhinitis 741747986 J30.89 Health Concerns Section Related Observation LastModified by Organization Detai ls LastModified Time None Recorded Concern Status LastModified by Organization Details LastModified Time None Recorded Payers Encounter Date Sequence Insurance Name Policy Number Policy Edouard Covered Member ID Edouard Member ID Guarantor Name 02/24/2024 1 [facility] [employer] TYPE I (HMO) [id number] Kaylee Soto [id number] Kaylee Soto OBGyn Episode No OBEpisode recorded.
--- OUTSIDE RECORDS SUMMARY | 2024-02-25 10:42 | XMS_ITS | Continuity of Care Document ---
Author Organization [place] - 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 Increase in asthma symptoms No If yes, inhaler use: Reaction to last injections: No If yes: ?? Allergy Symptoms: Other: ?? Missed: Dose Aware of Vial Test Notes:?? [email or web address] Not available 02/17/2024 13:33:27 Plan of Treatment Reminders Order Date Submit Date Provider Last Modified By Organization Details Last Modified Time Details Appointments [facility]- Allergy f-up 6mon 2024 09:00A M BERNARDO [...] Type 2 diabetes mellitus without complicat ion [id number] Active 2021 Type 2 diabetes mellitus without complicat ions; Note: Date Diagnosed : 09/27/2021 9:02 AM (E11.9) Not Available [facility] 02:39:44 Bleeding from nose 838312926 Active 2022 Epistaxis ; Note: Date Diagnosed : 04/11/2022 8:55 AM (R04.0) Not Available [facility] 02:39:40 Allergic rhinitis 12134009 Active 2023 Allergic rhinitis: Due to other [...] other allergen; Note: Date Diagnosed : 2 11:19 AM (477.8) Note: Date Diagnosed : 2 11:19 AM (477.8) ; Start Date : 2 Allergi c rhinitis: Due to other allergen; Note: Date Diagnosed : 2 9:13 AM (477.8) Note: Date Diagnosed : 2 9:13 AM (477.8) ; Start Date : 2 Allergi c rhinitis: Due to other allergen; Note: Date Diagnosed : 2 9:38 AM (477.8) Note: Date Diagnosed : 2 9:38 AM (477.8) ; Start Date : 2 Allergi c rhinitis: Due to other allergen; Note: Date Diagnosed : 11/22/2021 9:31 AM (477.8) Note Not Available [facility] 4 01:04:43 Nasal congestio n 66659451 Active 2019 Nasal congestio n; Note: Date Diagnosed : 04/29/2019 11:19 AM (R09.81) Not Available [facility] 4 02:39:41 Essential hypertens ion 24547433 Active 2019 Essential (primary) hypertens ion; Note: Date Diagnosed : 04/29/2019 11:20 AM (I10) Not Available [facility] 4 02:39:50 Migraine without aura, not refractor y 184143514 Active 2019 Migraine without aura, not intractab le, without status migrainos us; Note: Date Diagnosed : 04/29/2019 11:19 AM (G43.009) Not Available [facility] 4 02:39:40 Chronic rhinitis 78794502 Active 2019 Chronic rhinitis; Note: Date Diagnosed : 04/29/2019 11:19 AM (J31.0) Not Available [facility] 4 02:39:44 Headache 16316753 Active 2019 Facial pain NOS; Note: Date Diagnosed : 04/29/2019 11:19 AM (R51) Not Available [facility] 4 02:39:42 Snoring 68852522 Active 2020 Snoring; Note: Date Diagnosed : 1 8:53 AM (R06.83) Not Available [facility] 4 02:39:46 History of SARS-CoV- 2 [id number] 6203437 Active 2021 Personal history of COVID-19; Note: Date Diagnosed : 2 3:13 PM (Z86.16) Not Available [facility] 4 02:39:49 Uncomplic ated mild persisten t asthma 761386137 Active 2019 Mild persisten t asthma NOS; Note: Date Diagnosed : 02/01/2020 10:37 AM (J45.30) Not Available [facility] 4 02:39:40 Perennial allergic rhinitis 392711943 Active 2023 BLANCA MEEKS RN [address], [address] , [place] - [facility] 11:24:20 Problem Notes None recorded. Procedures Surgical History Date Name Laterality Status Provider Name and Address Organization Details Recorded Time 02/24/20 24 Allergy Immunotherapy Injections completed JOSE SMITH [address], [place], [address], [place] [facility] 02/24/2024 12:05:12 02/17/20 24 Allergy Immunotherapy Injections completed BLANCA MEEKS RN [address] [facility],[address], [place], [address], [place] [facility] 02/17/2024 13:33:14 02/06/20 24 Allergy Immunotherapy Injections completed BLANCA MEEKS RN [address] [facility] [place],[address] [place] [address], [address], [place] [facility] 02/06/2024 10:53:39 01/28/20 24 Allergy Immunotherapy Injections completed BLANCA MEEKS RN [address] [facility] [place],[address] [place] [address], [address], [place] [facility] 01/28/2024 12:07:01 01/21/20 24 Allergy Immunotherapy Injections completed BLANCA MEEKS RN [address] [facility],[address] [place] [address], [address], [place] [facility] 01/21/2024 13:20:03 01/02/20 24 Allergy Immunotherapy Injections completed BLANCA MEEKS RN [address] [facility],[address] [place] [address], [address], [place] [facility] 01/02/2024 13:31:09 12/26/19 24 Allergy Immunotherapy Injections completed BLANCA MEEKS RN [address] [facility],[address] [place] [address], [phone], [place] [facility] 12/26/2023 14:09:15 12/19/19 24 Allergy Immunotherapy Injections completed JOSE SMITH [address], [place], [address], [place] [facility] 12/19/2023 10:09:52 12/12/19 24 Allergy Immunotherapy Injections completed BERNADETTE LOZADAC, RMA [address], [place], [address], [place] [facility] 12/12/2023 11:34:33 12/02/19 24 Allergy Immunotherapy Injections completed BLANCA MEEKS RN [address], [place], [address], [place] [facility] 12/02/2023 09:39:54 11/28/19 24 Allergy Immunotherapy Injections completed BERNADETTE LOZADAC, RMA [address], [place], [address], [place] [facility] 11/28/2023 10:41:02 11/21/19 24 Allergy Immunotherapy Injections completed BERNADETTE LOZADAC, RMA [address], [place], [address], [place] [facility] 11/21/2023 10:30:36 11/14/19 24 Allergy Immunotherapy Injections completed BERNADETTE DEAN, RMA [address], [place], [address], [place] [facility] 11/14/2023 10:59:06 10/31/19 24 Allergy Immunotherapy Injections completed JOSE SMITH [address], [place], [address], [place] [facility] 10/31/2023 12:08:09 10/24/19 24 Allergy Immunotherapy Injections completed BLANCA MEEKS RN [address] [place] [address], [address], [place] [facility] 10/24/2023 10:43:59 10/17/19 24 Allergy Immunotherapy Injections completed BERNADETTE DEAN, RMA [address], [place], [address], [place] [facility] 10/17/2023 11:52:31 10/09/19 24 Allergy Immunotherapy Injections completed JOSE SMITH [address], [place], [address], [place] [facility] 10/09/2023 10:01:24 10/03/19 24 Allergy Immunotherapy Injections completed BLANCA MEEKS RN [address], [place], [address], [place] [facility] 10/03/2023 10:24:47 09/26/19 24 Allergy Immunotherapy Injections completed BLANCA MEEKS RN [address], [place], [address], [place] [facility] 09/26/2023 14:45:33 09/19/19 24 Allergy Immunotherapy Injections completed BERNADETTE DEAN, RMA [address], [place], [address], [place] [facility] 09/19/2023 12:07:44 09/12/19 24 Allergy Immunotherapy Injections completed BERNADETTE DEAN, RMA [address], [place], [address], [place] [facility] 09/12/2023 12:55:19 09/05/19 24 Allergy Immunotherapy Injections completed BERNADETTE DEAN, RMA [address], [place], [address], [place] [facility] 09/05/2023 11:15:09 08/22/19 24 Allergy Immunotherapy Injections completed BERNADETTE DEAN RMA [address], [place], [address], [place] [facility] 08/22/2023 12:12:17 08/15/19 24 Allergy Immunotherapy Injections completed JOSE SMITH [address], [place], [address], [place] [facility] 08/15/2023 09:54:41 08/08/19 24 Allergy Immunotherapy Injections completed BLANCA MEEKS RN [address], [place], [address], [place] [facility] 08/08/2023 11:08:44 08/01/19 24 Allergy Immunotherapy Injections completed BERNADETTE DEAN RMA [address], [place], [address], [place] [facility] 08/01/2023 10:34:54 07/25/19 24 Allergy Immunotherapy Injections completed DAVIDA SMITHA [address] [facility],[place] [address], [place], [address], [facility] 07/25/2023 14:35:33 07/11/19 24 Allergy Immunotherapy Injections completed BLANCA MEEKS RN [address] [facility] [address], [place], [address], [facility] 07/11/2023 11:25:39 Imaging Results None recorded. Procedure Notes None recorded. Medical Equipment None Reported. Medications Name Sig Start Date Stop Date Status Note LastModified by Organization Details LastModified Time cetirizin e 10 mg tablet 2020 active Medicati on ID: [id number] B rand Name: cetirizi ne Send Method: [...] mg tablet 04/11 completed Medicati on ID: [id number] D uration Value: 30 Brand Name: ondanset ravi HCl Send Method: E-Prescr ibed Sub s Allowed: subs OK Speci al Instruct ion: PLEASE SEE ATTACHED FOR DETAILED DIRECTIO [facility] ondanset ravi HCl Not Available [...] mg tablet 2019 active Medicati on ID: [id number] D uration Value: 90 Brand Name: amlodipi [...] both nostrils 2019 active Medicati on ID: 545697 D uration Value: 30 Brand Name: fluticas [...] aerosol inhaler 05/15 completed Medicati on ID: [id number] D uration Value: 90 Brand Name: Flovent [...] Diagnosis/Indication Diagnosis SNOMED-CT Code Diagnosis ICD10 Code 35190 BLANCA MEEKS RN Allergy [address] [place] [address] [address] [place] [address] 01/21/2024 13:10:56 01/21/2024 13:20:36 Perennial allergic rhinitis 517288839 J30.89 [id number] BLANCA MEEKS RN Allergy [address] [place] [address] [address] [place] [address] 01/28/2024 10:01:37 01/28/2024 12:07:33 Perennial allergic rhinitis 896896293 J30.89 [id number] BLANCA MEEKS RN Allergy [address] [place] [address] it[address] [place] [address] 02/06/2024 09:58:03 02/06/2024 10:54:13 Perennial allergic rhinitis 174948456 J30.89 [id number] BLANCA MEEKS RN Allergy [address] [place] [address] [address] [place] [address] 02/17/2024 09:46:05 02/17/2024 13:33:45 Perennial allergic rhinitis 737499049 J30.89 Health Concerns Section Related Observation LastModified by Organization Detai ls LastModified Time None Recorded Concern Status LastModified by Organization Details LastModified Time None Recorded Payers Encounter Date Sequence Insurance Name Policy Number Policy Edouard Covered Member ID Edouard Member ID Guarantor Name 02/17/2024 1 [facility] [employer] - DIRECT CONNECTORCARE TYPE I (HMO) [id number] Kaylee Soto [id number] Kaylee Soto OBGyn Episode No OBEpisode recorded.
--- OUTSIDE RECORDS SUMMARY | 2024-02-25 10:42 | XMS_ITS | Data Portability ---
Author Organization [place] - [facility], Allergy Address [address] [place] [address] Care Team Providers Care Low Voltage Technician Name Role Phone JAIPINA Primary Care Provider [phone] Assessment Encounter Date Assessment Date Assessment LastModified by Organization Details LastModified Time 01/21/2024 01/21/2024 Administered By: Gayathri Corona Use of Antihistamines: Yes If yes: Vial Test Change in medications: No If yes ?? Increase in asthma symptoms No If yes, inhaler use: Reaction to last injections: If yes: ?? Allergy Symptoms: Other: ?? Missed 1 week Dose Notes:??aware of vial test [email or web address] Not available 01/21/2024 13:20:15 01/28/2024 01/28/2024 Administered By: Blanca Meeks RN Use of Antihistamines: No If yes: Vial Test Change in medications: No If yes ?? Increase in asthma symptoms No If yes, inhaler use: Reaction to last injections: No If yes: ?? Allergy Symptoms: Other: ?? Missed 1 week Dose Notes:?? [email or web address] Not available 01/28/2024 12:06:43 02/06/2024 02/06/2024 Administered By: Blanca Meeks RN Use of Antihistamines: Yes If yes: Vial Test Change in medications: No If yes ?? Increase in asthma symptoms No If yes, inhaler use: Reaction to last injections: No If yes: ?? Allergy Symptoms: Other: ?? Missed 1 week Dose Notes:?? [email or web address] Not available 02/06/2024 10:53:22 02/17/2024 02/17/2024 Visit With: Blanca Meeks RN Use of Antihistamines: Yes If yes: Vial Test Change in medications: No If yes ?? Increase in asthma symptoms No If yes, inhaler use: Reaction to last injections: No If yes: ?? Allergy Symptoms: Other: ?? Missed: Dose Aware of Vial Test Notes:?? [email or web address] Not available 02/17/2024 13:33:27 02/24/2024 02/24/2024 Visit With: Blanca Meeks RN Use of Antihistamines: Yes If yes: 1-2/wk Vial Test Change in medications: No If yes ?? Increase in asthma symptoms No If yes, inhaler use: Reaction to last injections: No If yes: ?? Allergy Symptoms: Other: ?? Missed: Dose Aware of Vial Test Notes:?? [email or web address] Not available 02/24/2024 12:04:02 Plan of Treatment Reminders Order Date Submit Date Provider Last Modified By Organization Details Last Modified Time Details Appointments [facility] hed- Allergy f-up 6mon 2024 09:00A Zev CARBALLO PA-C Not available Not available Not [...] Type 2 diabetes mellitus without complicat ion 444929491 Active 2021 Type 2 diabetes mellitus without complicat ions; Note: Date Diagnosed : 09/27/2021 9:02 AM (E11.9) Not Available [facility] 4 02:39:44 Bleeding from nose 703824698 Active 2022 Epistaxis ; Note: Date Diagnosed : 04/11/2022 8:55 AM (R04.0) Not Available [facility] 4 02:39:40 Allergic rhinitis 15879467 Active 2023 Allergic rhinitis: Due to other [...] 9:09 AM (477.8) ; Start Date : Allergi c rhinitis: Due to other allergen; Note: Date Diagnosed : 03/28/2022 9:14 AM (477.8) Note: Date Diagnosed : 03/28/2022 9:14 AM (477.8) ; Start Date : Allergi [...] 11/22/2021 9:31 AM (477.8) Note Not Available [facility] 4 01:04:43 Nasal congestio n 89803777 Active 2019 Nasal congestio n; Note: Date Diagnosed : 04/29/2019 11:19 AM (R09.81) Not Available [facility] 4 02:39:41 Essential hypertens ion 08586853 Active 2019 Essential (primary) hypertens ion; Note: Date Diagnosed : 04/29/2019 11:20 AM (I10) Not Available [facility] 4 02:39:50 Migraine without aura, not refractor y 445000118 Active 2019 Migraine without aura, not intractab le, without status migrainos ; Note: Date Diagnosed : 04/29/2019 11:19 AM (G43.009) Not Available [facility] 4 02:39:40 Chronic rhinitis 35601140 Active 2019 Chronic rhinitis; Note: Date Diagnosed : 04/29/2019 11:19 AM (J31.0) Not Available [facility] 4 02:39:44 Headache 58989190 Active 2019 Facial pain NOS; Note: Date Diagnosed : 04/29/2019 11:19 AM (R51) Not Available [facility] 4 02:39:42 Snoring 78964099 Active 2020 Snoring; Note: Date Diagnosed : 1 8:53 AM (R06.83) Not Available [facility] 4 02:39:46 History of SARS-CoV- 2 [id number] 1507001 Active 2021 Personal history of COVID-19; Note: Date Diagnosed : 2 3:13 PM (Z86.16) Not Available [facility] 4 02:39:49 Uncomplic ated mild persisten t asthma 893158842 Active 2019 Mild persisten t asthma NOS; Note: Date Diagnosed : 02/01/2020 10:37 AM (J45.30) Not Available [facility] 4 02:39:40 Perennial allergic rhinitis 595847849 Active 2023 BLANCA MEEKS RN [address] [address], [facility] [place], [address] , [facility] - [facility] 4 11:24:20 Problem Notes None recorded. Procedures Surgical History Date Name Laterality Status Provider Name and Address Organization Details Recorded Time 02/24/20 24 Allergy Immunotherapy Injections completed JOSE SMITH [address] [facility],[address] [address], [place], [address], [place] [facility] 02/24/2024 12:05:12 02/17/20 24 Allergy Immunotherapy Injections completed BLANCA MEEKS RN [address] [place] [address], [address], [place] [facility] 02/17/2024 13:33:14 02/06/20 24 Allergy Immunotherapy Injections completed BLANCA MEEKS RN [address], [place], [address], [place] [facility] 02/06/2024 10:53:39 01/28/20 24 Allergy Immunotherapy Injections completed BLANCA MEEKS RN [address], [place], [address], [place] [facility] 01/28/2024 12:07:01 01/21/20 24 Allergy Immunotherapy Injections completed BLANCA MEEKS RN [address],[place] [place] [address], [address], [place] [facility] 01/21/2024 13:20:03 01/02/20 24 Allergy Immunotherapy Injections completed BLANCA MEEKS RN [address] [place] [address], [address], [place] [facility] 01/02/2024 13:31:09 12/26/19 24 Allergy Immunotherapy Injections completed BLANCA MEEKS RN [address] [place] [address], [address], [place] [facility] 12/26/2023 14:09:15 12/19/19 24 Allergy Immunotherapy Injections completed JOSE SMITH [address] [place] [address], [address], [place] [facility] 12/19/2023 10:09:52 12/12/19 24 Allergy Immunotherapy Injections completed JOSE GONZALES [address], [place], [address], [place] [facility] 12/12/2023 11:34:33 12/02/19 24 Allergy Immunotherapy Injections completed BLANCA MEEKS RN [address] [facility] [address] [place],[address] [place] [address], [address], [place] [facility] 12/02/2023 09:39:54 11/28/19 24 Allergy Immunotherapy Injections completed BERNADETTE LOZADAC, RMA [address], [place], [address], [place] [facility] 11/28/2023 10:41:02 11/21/19 24 Allergy Immunotherapy Injections completed BERNADETTE MARIFERZEC, RMA [address], [place], [address], [place] [facility] 11/21/2023 10:30:36 11/14/19 24 Allergy Immunotherapy Injections completed BERNADETTE LOZADAC, RMA [address], [place], [address], [place] [facility] 11/14/2023 10:59:06 10/31/19 24 Allergy Immunotherapy Injections completed JOSE SMITH [address] [facility], [place], [address], [place] [facility] 10/31/2023 12:08:09 10/24/19 24 Allergy Immunotherapy Injections completed BLANCA MEEKS RN [address] [place] [address], [address], [place] [facility] 10/24/2023 10:43:59 10/17/19 24 Allergy Immunotherapy Injections completed BERNADETTE DEAN, RMA [address], [place], [address], [place] [facility] 10/17/2023 11:52:31 10/09/19 24 Allergy Immunotherapy Injections completed JOSE SMITH [address], [place], [address], [place] [facility] 10/09/2023 10:01:24 10/03/19 24 Allergy Immunotherapy Injections completed BLANCA MEEKS RN [address] [place] [address], [address], [place] [facility] 10/03/2023 10:24:47 09/26/19 24 Allergy Immunotherapy Injections completed BLANCA MEEKS RN [address] [place] [address], [address], [place] [facility] 09/26/2023 14:45:33 09/19/19 24 Allergy Immunotherapy Injections completed BERNADETTE KORZEC, RMA [address], [place], [address], [place] [facility] 09/19/2023 12:07:44 09/12/19 24 Allergy Immunotherapy Injections completed BERNADETTE KORZEC, RMA [address], [place], [address], [place] [facility] 09/12/2023 12:55:19 09/05/19 24 Allergy Immunotherapy Injections completed BERNADETTE KORZEC, RMA [address], [place], [address], [place] [facility] 09/05/2023 11:15:09 08/22/19 24 Allergy Immunotherapy Injections completed BERNADETTE LOZADAC, RMA [address], [place], [address], [place] [facility] 08/22/2023 12:12:17 08/15/19 24 Allergy Immunotherapy Injections completed JOSE SMITH [address] [place] [address], [address], [place] [facility] 08/15/2023 09:54:41 08/08/19 24 Allergy Immunotherapy Injections completed BLANCA MEEKS RN [address] [place] [address], [address], [place] [facility] 08/08/2023 11:08:44 08/01/19 24 Allergy Immunotherapy Injections completed BERNADETTE DEAN, RMA [address] [place] [address], [address], [place] [facility] 08/01/2023 10:34:54 07/25/19 24 Allergy Immunotherapy Injections completed JOSE SMITH [address], [place], [address], [place] [facility] 07/25/2023 14:35:33 07/11/19 24 Allergy Immunotherapy Injections completed BLACNA MEEKS RN [address], [place], [address], [place] [facility] 07/11/2023 11:25:39 Imaging Results None recorded. Procedure Notes None recorded. Medical Equipment None Reported. Medications Name Sig Start Date Stop Date Status Note LastModified by Organization Details LastModified Time cetirizin e 10 mg tablet 2020 active Medicati on ID: [id number] B rand Name: cetirizi ne Send Method: [...] mg tablet 04/11 completed Medicati on ID: [id number] D uration Value: 30 Brand Name: ondanset [...] mg tablet 2019 active Medicati on ID: [id number] D uration Value: 90 Brand Name: amlodipi [...] both nostrils 2019 active Medicati on ID: [id number] D uration Value: 30 Brand Name: fluticas [...] aerosol inhaler 05/15 completed Medicati on ID: [id number] D uration Value: 90 Brand Name: Flovent [...] Diagnosis/Indication Diagnosis SNOMED-CT Code Diagnosis ICD10 Code 514 CLARA LARA MD Allergy [address] [place] [address],[address] [address] [place] [address] 07/11/2023 10:37:53 07/12/2023 13:04:10 Perennial allergic rhinitis 482182079 J30.89 2111 GAYATHRI CORONA [facility] Allergy [address] [place] [address],[address] [place] [address] 07/25/2023 14:01:24 07/25/2023 15:31:41 Perennial allergic rhinitis 641825580 J30.89 3007 BERNADETTE KIERRA, A Allergy [address] [place] [address],[address] [place] [address] 08/01/2023 09:18:23 08/01/2023 11:42:38 Perennial allergic rhinitis 859239936 J30.89 3923 BLANCA MEEKS RN Allergy [address] [place] [address],[address] [place] [address] 08/08/2023 10:16:20 08/08/2023 11:57:39 Perennial allergic rhinitis 549599296 J30.89 4849 GAYATHRI CORONA A Allergy [address] [place] [address],[address] [place] [address] 08/15/2023 09:53:10 08/15/2023 12:08:05 Perennial allergic rhinitis 490449380 J30.89 5864 BERNADETTE KIERRA, A Allergy [address] [place] [address],[address] [place] [address] 08/22/2023 11:50:40 08/22/2023 13:24:56 Perennial allergic rhinitis 439282599 J30.89 7467 BERNADETTE KIERRA, A Allergy [address] [facility],[address] [place] [address] 09/05/2023 11:07:09 09/05/2023 13:48:37 Perennial allergic rhinitis 164339100 J30.89 8462 BERNADETTE KIERRA, RMA Allergy [address] [place] [address],[address] [place] [address] 09/12/2023 11:52:07 09/12/2023 13:07:55 Perennial allergic rhinitis 353893427 J30.89 9520 [facility] Allergy [address] [place] [address] [address] [place] [address] 09/19/2023 11:49:01 09/19/2023 12:14:30 Perennial allergic rhinitis [id number] J30.89 77341 BLANCA MEEKS RN Allergy [address] [place] [address] [address] [place] [address] 09/26/2023 13:48:24 09/26/2023 14:46:06 Perennial allergic rhinitis 845097130 J30.89 22706 BLANCA MEEKS RN Allergy [address] [place], [place] [address] [address] [place] [address] 10/03/2023 09:23:46 10/03/2023 10:28:07 Perennial allergic rhinitis 174152800 J30.89 30360 GAYATHRI CROONA [facility] Allergy [address] [place] [address] [address] [place] [address] 10/09/2023 08:55:13 10/09/2023 10:27:59 Perennial allergic rhinitis 602434799 J30.89 94599 [facility] Allergy [address] [place] [address] [address] [place] [address] 10/17/2023 10:52:23 10/17/2023 12:18:23 Perennial allergic rhinitis 245341758 J30.89 65045 BLANCA MEEKS RN Allergy [address] [place] [address] [address] [place] [address] 10/24/2023 10:12:20 10/24/2023 10:44:28 Perennial allergic rhinitis [id number] J30.89 57063 GAYATHRI CORONA [facility] Allergy [address] [place] [address] [address] [place] [address] 10/31/2023 11:55:56 10/31/2023 13:59:26 Perennial allergic rhinitis 966453834 J30.89 86577 [facility] Allergy [address] [place] [address] [address] [place] [address] 11/14/2023 10:19:55 11/14/2023 10:59:41 Perennial allergic rhinitis 118926879 J30.89 84473 BERNADETTE LOZADA, A Allergy [address] [facility],[address] [place] [address] 11/21/2023 09:53:49 11/21/2023 10:30:59 Perennial allergic rhinitis 389940904 J30.89 BERNADETTE KIERRA, A Allergy [address] [facility],[address] [place] [address] 11/28/2023 10:29:29 11/28/2023 10:39:53 Perennial allergic rhinitis 853361593 J30.89 CLARA LARA MD [facility] [place] [address] [facility] [place] [address] 12/02/2023 08:50:33 12/02/2023 09:18:14 Allergic rhinitis 90399264 J30.89 86194 BLACNA MEEKS RN Allergy [address] [place] [address], [address] [place] [address] 12/02/2023 08:50:33 12/02/2023 09:18:14 Perennial allergic rhinitis 934178997 J30.89 21444 [facility] KIERAR, A Allergy [address] [facility],[address] [address] [place] [address] 12/12/2023 09:23:45 12/12/2023 11:35:20 Perennial allergic rhinitis 834279807 J30.89 42301 GAYATHRI CORONA, [facility] Allergy [address] [facility],[address] [place] [address] 12/19/2023 09:40:27 12/19/2023 10:11:35 Perennial allergic rhinitis 229494692 J30.89 [id number] BLANCA MEEKS RN Allergy [address] [place] [address],[address] [place] [address] 12/26/2023 13:32:02 12/26/2023 14:09:51 Perennial allergic rhinitis [id number] J30.89 18996 BLANCA MEEKS RN Allergy [address] [place] [address],[address] [place] [address] 01/02/2024 12:59:48 01/02/2024 13:31:55 Perennial allergic rhinitis [id number] J30.89 44814 BLANCA MEEKS [employer]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 [address] [place] [address],[address] [place] [address] 01/21/2024 13:10:56 01/21/2024 13:20:36 Perennial allergic rhinitis 280724595 J30.89 39141 BLANCA MEEKS RN Allergy [address] [place] [address],[address] [place] [address] 01/28/2024 10:01:37 01/28/2024 12:07:33 Perennial allergic rhinitis [id number] J30.89 37520 BLANCA MEEKS RN Allergy [address] [place] [address],[address] [place] [address] 02/06/2024 09:58:03 02/06/2024 10:54:13 Perennial allergic rhinitis [id number] J30.89 05448 BLANCA MEEKS RN Allergy [address] [place] [address],[address] [place] [address] 02/17/2024 09:46:05 02/17/2024 13:33:45 Perennial allergic rhinitis [id number] J30.89 94756 JOSE SMITH Allergy [address] [place] [address],[address] [place] [address] 02/24/2024 10:30:20 02/24/2024 12:07:35 Perennial allergic rhinitis 544507338 J30.89 Health Concerns Section Related Observation LastModified by Organization Detai ls LastModified Time None Recorded Concern Status LastModified by Organization Details LastModified Time None Recorded Advance Directives Directive None Recorded Payers Encounter Date Sequence Insurance Name Policy Number Policy Edouard Covered Member ID Edouard Member ID Guarantor Name 01/21/2024 1 [facility] - DIRECT CONNECTORCARE TYPE I (HMO) [id number] Kayleetang Guallpare [id number] 2 Kaylee Soto 01/28/2024 1 [facility] - [employer]CARE TYPE I (HMO) [id number] Kaylee Charles [id number] 2 Kaylee Charles 02/06/2024 1 [facility] - DIRECT CONNE[employer]CARE TYPE I (HMO) [id number] Kaylee Charles [id number] Kaylee Charles 02/17/2024 1 [facility] - DIRECT CONNE[employer]CARE TYPE I (HMO) [id number] Kaylee Charles [id number] 2 Kaylee Charles 02/24/2024 1 [facility] - DIRECT CONNECTORCARE TYPE I (HMO) [id number] Kaylee Charles [id number] Kaylee Charles OBGyn Episode No OBEpisode recorded.
--- OUTSIDE RECORDS SUMMARY | 2024-02-25 10:42 | XMS_ITS | Continuity of Care Document ---
Author Organization [place] - [facility], Allergy Address [address] [address] Care Team Providers Care Deputy Felony Clerk Name Role Phone PINA VERGARA Primary Care Provider [phone] Assessment Encounter Date Assessment Date Assessment LastModified by Organization Details LastModified Time 02/06/2024 02/06/2024 Administered By: Blanca Meeks RN Use of Antihistamines: Yes If yes: Vial Test Change in medications: No If yes ?? Increase in asthma symptoms No If yes, inhaler use: Reaction to last injections: No If yes: ?? Allergy Symptoms: Other: ?? Missed 1 week Dose Notes:?? [email or web address] Not available 02/06/2024 10:53:22 Plan of Treatment Reminders Order Date Submit Date Provider Last Modified By Organization Details Last Modified Time Details Appointments [facility]- Allergy f-up 6mon 2024 09:00A M [...] Type 2 diabetes mellitus without complicat ion [id number] Active 2021 Type 2 diabetes mellitus without complicat ions; Note: Date Diagnosed : 09/27/2021 9:02 AM (E11.9) Not Available [facility] 02:39:44 Bleeding from nose 575081599 Active 2022 Epistaxis ; Note: Date Diagnosed : 04/11/2022 8:55 AM (R04.0) Not Available [facility] 02:39:40 Allergic rhinitis 67271459 Active 2023 Allergic rhinitis: Due to other [...] 11/22/2021 9:31 AM (477.8) Note Not Available [facility] 4 01:04:43 Nasal congestio n 52634556 Active 2019 Nasal congestio n; Note: Date Diagnosed : 04/29/2019 11:19 AM (R09.81) Not Available [facility] 4 02:39:41 Essential hypertens ion 49815604 Active 2019 Essential (primary) hypertens ion; Note: Date Diagnosed : 04/29/2019 11:20 AM (I10) Not Available [facility] 4 02:39:50 Migraine without aura, not refractor y 155948691 Active 2019 Migraine without aura, not intractab le, without status migrainos us; Note: Date Diagnosed : 04/29/2019 11:19 AM (G43.009) Not Available [facility] 4 02:39:40 Chronic rhinitis 45713014 Active 2019 Chronic rhinitis; Note: Date Diagnosed : 04/29/2019 11:19 AM (J31.0) Not Available [facility] 4 02:39:44 Headache 31095925 Active 2019 Facial pain NOS; Note: Date Diagnosed : 04/29/2019 11:19 AM (R51) Not Available [facility] 4 02:39:42 Snoring 09017499 Active 2020 Snoring; Note: Date Diagnosed : 1 8:53 AM (R06.83) Not Available [facility] 4 02:39:46 History of SARS-CoV- 2 [id number] 2348817 Active 2021 Personal history of COVID-19; Note: Date Diagnosed : 2 3:13 PM (Z86.16) Not Available [facility] 4 02:39:49 Uncomplic ated mild persisten t asthma 693514116 Active 2019 Mild persisten t asthma NOS; Note: Date Diagnosed : 02/01/2020 10:37 AM (J45.30) Not Available [facility] 4 02:39:40 Perennial allergic rhinitis 519887197 Active 2023 BLANCA MEEKS RN [address] [place] [address] [place], [address] , [place] [facility] 11:24:20 Problem Notes None recorded. Procedures Surgical History Date Name Laterality Status Provider Name and Address Organization Details Recorded Time 02/24/20 24 Allergy Immunotherapy Injections completed JOSE SMITH [address] [facility], [place], [address], [place] [facility] 02/24/2024 12:05:12 02/17/20 24 Allergy Immunotherapy Injections completed BLANCA MEEKS RN [address] [facility] [address], [place], [address], [place] [facility] 02/17/2024 13:33:14 02/06/20 24 Allergy Immunotherapy Injections completed BLANCA MEEKS RN [facility] [place] [place] [address], [address], [place] [facility] 02/06/2024 10:53:39 01/28/20 24 Allergy Immunotherapy Injections completed BLANCA MEEKS RN [facility] [place] [address] [place] [address], [address], [place] [facility] 01/28/2024 12:07:01 01/21/20 24 Allergy Immunotherapy Injections completed BLANCA MEEKS RN [facility] [place] [address] [place] [address], [address], [place] [facility] 01/21/2024 13:20:03 01/02/20 24 Allergy Immunotherapy Injections completed BLANCA MEEKS RN [facility] [place] [address] [place] [address], [address], [place] [facility] 01/02/2024 13:31:09 12/26/19 24 Allergy Immunotherapy Injections completed BLANCA MEEKS RN [facility] [place] [address] [place] [address], [address], [place] [facility] 12/26/2023 14:09:15 12/19/19 24 Allergy Immunotherapy Injections completed JOSE SMITH [address] [facility] [address], [place], [address], [place] [facility] 12/19/2023 10:09:52 12/12/19 24 Allergy Immunotherapy Injections completed BERNADETTE LOZADAC, RMA [address], [place], [address], [place] [facility] 12/12/2023 11:34:33 12/02/19 24 Allergy Immunotherapy Injections completed BLANCA MEEKS RN [address], [place], [address], [place] [facility] 12/02/2023 09:39:54 11/28/19 24 Allergy Immunotherapy Injections completed BERNADETTE CAICEDOZEC, RMA [address], [place], [address], [place] [facility] 11/28/2023 10:41:02 11/21/19 24 Allergy Immunotherapy Injections completed BERNADETTE LOZADAC, RMA [address], [place], [address], [place] [facility] 11/21/2023 10:30:36 11/14/19 24 Allergy Immunotherapy Injections completed BERNADETTE DEAN, RMA [address], [place], [address], [place] [facility] 11/14/2023 10:59:06 10/31/19 24 Allergy Immunotherapy Injections completed JOSE SMITH [address] [place] [address], [address], [place] [facility] 10/31/2023 12:08:09 10/24/19 24 Allergy Immunotherapy Injections completed BLANCA MEEKS RN [address] [facility] [address], [place], [address], [place] [facility] 10/24/2023 10:43:59 10/17/19 24 Allergy Immunotherapy Injections completed BERNADETTE DEAN, RMA [address], [place], [address], [place] [facility] 10/17/2023 11:52:31 10/09/19 24 Allergy Immunotherapy Injections completed JOSE SMITH [address], [place], [address], [place] [facility] 10/09/2023 10:01:24 10/03/19 24 Allergy Immunotherapy Injections completed BLANCA MEEKS RN [address], [place], [address], [place] [facility] 10/03/2023 10:24:47 09/26/19 24 Allergy Immunotherapy Injections completed BLANCA MEEKS RN [address], [place], [address], [place] [facility] 09/26/2023 14:45:33 09/19/19 24 Allergy Immunotherapy Injections completed BERNADETTE DEAN, RMA [address], [place], [address], [place] [facility] 09/19/2023 12:07:44 09/12/19 24 Allergy Immunotherapy Injections completed BERNADETTE DEAN RMA [address], [place], [address], [place] [facility] 09/12/2023 12:55:19 09/05/19 24 Allergy Immunotherapy Injections completed BERNADETTE DEAN RMA [address], [place], [address], [place] [facility] 09/05/2023 11:15:09 08/22/19 24 Allergy Immunotherapy Injections completed BERNADETTE DEAN RMA [address], [place], [address], [place] [facility] 08/22/2023 12:12:17 08/15/19 24 Allergy Immunotherapy Injections completed RAFY HONEYCUTT Angelina [address], [place], [address], [place] [facility] 08/15/2023 09:54:41 08/08/19 24 Allergy Immunotherapy Injections completed BLANCA MEEKS RN [address], [place], [address], [place] [facility] 08/08/2023 11:08:44 08/01/19 24 Allergy Immunotherapy Injections completed BERNADETTE DEAN, RMA [address], [place], [address], [place] [facility] 08/01/2023 10:34:54 05/30/20 24 Allergy Immunotherapy Injections completed JOSE SMITH 100 [facility],[place] [address], [place], [address], [facility] 07/25/2023 14:35:33 07/11/19 24 Allergy Immunotherapy Injections completed BLANCA MEEKS RN 100 [facility],[place] [address], [place], [address], [facility] 07/11/2023 11:25:39 Imaging Results None recorded. Procedure Notes None recorded. Medical Equipment None Reported. Medications Name Sig Start Date Stop Date Status Note LastModified by Organization Details LastModified Time cetirizin e 10 mg tablet 2020 active Medicati on ID: [id number] B rand Name: cetirizi ne Send Method: [...] mg tablet 04/11 completed Medicati on ID: [id number] D uration Value: 30 Brand Name: ondanset [...] mg tablet 2019 active Medicati on ID: [id number] D uration Value: 90 Brand Name: amlodipi [...] both nostrils 2019 active Medicati on ID: [id number] D uration Value: 30 Brand Name: fluticas [...] aerosol inhaler 05/15 completed Medicati on ID: [id number] D uration Value: 90 Brand Name: Flovent [...] Diagnosis/Indication Diagnosis SNOMED-CT Code Diagnosis ICD10 Code 70240 BLANCA MEEKS RN Allergy [address] [place] [address],[facility] 100 [place] [address] 01/21/2024 13:10:56 01/21/2024 13:20:36 Perennial allergic rhinitis 903752617 J30.89 [id number] BLANCA MEEKS RN Allergy [address] [place] [address] it 100 [place] [address] 01/28/2024 10:01:37 01/28/2024 12:07:33 Perennial allergic rhinitis 369289673 J30.89 19784 BLANCA MEEKS RN Allergy [address] [place] [address] it[address] [place] [address] 02/06/2024 09:58:03 02/06/2024 10:54:13 Perennial allergic rhinitis 215661121 J30.89 Health Concerns Section Related Observation LastModified by Organization Detai ls LastModified Time None Recorded Concern Status LastModified by Organization Details LastModified Time None Recorded Payers Encounter Date Sequence Insurance Name Policy Number Policy Edouard Covered Member ID Edouard Member ID Guarantor Name 02/06/2024 1 [facility] [employer] - DIRECT CONNECTORCARE TYPE I (HMO) [id number] Kaylee Soto [id number] 2 Kaylee Soto OBGyn Episode No OBEpisode recorded.
--- OUTSIDE RECORDS SUMMARY | 2024-02-25 10:42 | XMS_ITS | Continuity of Care Document ---
Author Organization [place] - [facility], Allergy Address [address] [address] Care Team Providers Care Artificial Candy Maker Name Role Phone PINA VERGARA Primary Care Provider Assessment Encounter Date Assessment Date Assessment LastModified by Organization Details LastModified Time 01/28/2024 01/28/2024 Administered By: Blanca Meeks RN Use of Antihistamines: No If yes: Vial Test Change in medications: No If yes ?? Increase in asthma symptoms No If yes, inhaler use: Reaction to last injections: No If yes: ?? Allergy Symptoms: Other: ?? Missed 1 week Dose Notes:?? [email or web address] Not available 01/28/2024 12:06:43 Plan of Treatment Reminders Order Date Submit Date Provider Last Modified By Organization Details Last Modified Time Details Appointments [facility]- Allergy f-up 6mon 2024 09:00A M BERNARDO [...] Type 2 diabetes mellitus without complicat ion 057134402 Active 2021 Type 2 diabetes mellitus without complicat ions; Note: Date Diagnosed : 09/27/2021 9:02 AM (E11.9) Not Available [facility] 02:39:44 Bleeding from nose 338110620 Active 2022 Epistaxis ; Note: Date Diagnosed : 04/11/2022 8:55 AM (R04.0) Not Available [facility] 02:39:40 Allergic rhinitis 17563074 Active 2023 Allergic rhinitis: Due to other [...] 11/22/2021 9:31 AM (477.8) Note Not Available [facility] 4 01:04:43 Nasal congestio n 87168612 Active 2019 Nasal congestio n; Note: Date Diagnosed : 04/29/2019 11:19 AM (R09.81) Not Available [facility] 4 02:39:41 Essential hypertens ion 64752148 Active 2019 Essential (primary) hypertens ion; Note: Date Diagnosed : 04/29/2019 11:20 AM (I10) Not Available [facility] 4 02:39:50 Migraine without aura, not refractor y 579074740 Active 2019 Migraine without aura, not intractab le, without status migrainos us; Note: Date Diagnosed : 04/29/2019 11:19 AM (G43.009) Not Available [facility] 4 02:39:40 Chronic rhinitis 72121727 Active 2019 Chronic rhinitis; Note: Date Diagnosed : 04/29/2019 11:19 AM (J31.0) Not Available [facility] 4 02:39:44 Headache 80161184 Active 2019 Facial pain NOS; Note: Date Diagnosed : 04/29/2019 11:19 AM (R51) Not Available [facility] 4 02:39:42 Snoring 74353617 Active 2020 Snoring; Note: Date Diagnosed : 1 8:53 AM (R06.83) Not Available [facility] 4 02:39:46 History of SARS-CoV- 2 [id number] 7564346 Active 2021 Personal history of COVID-19; Note: Date Diagnosed : 2 3:13 PM (Z86.16) Not Available [facility] 4 02:39:49 Uncomplic ated mild persisten t asthma 366327946 Active 2019 Mild persisten t asthma NOS; Note: Date Diagnosed : 02/01/2020 10:37 AM (J45.30) Not Available [facility] 4 02:39:40 Perennial allergic rhinitis 470354902 Active 2023 BLANCA MEEKS RN [address] [place] [address] [place], [address] , [place] [facility] 11:24:20 Problem Notes None recorded. Procedures Surgical History Date Name Laterality Status Provider Name and Address Organization Details Recorded Time 02/24/20 24 Allergy Immunotherapy Injections completed JOSE SMITH [address] [facility] [address], [place], [address], [place] [facility] 02/24/2024 12:05:12 02/17/20 24 Allergy Immunotherapy Injections completed BLANCA MEEKS RN 100 [facility] [address], [place], [address], [place] [facility] [place] 02/17/2024 13:33:14 02/06/20 24 Allergy Immunotherapy Injections completed BLANCA MEEKS RN 100 [facility] [place],[address] [place] [address], [address], [place] [facility] 02/06/2024 10:53:39 01/28/20 24 Allergy Immunotherapy Injections completed BLANCA MEEKS RN 100 [facility] [place],[address] [place] [address], [address], [place] [facility] 01/28/2024 12:07:01 01/21/20 24 Allergy Immunotherapy Injections completed BLANCA MEEKS RN 100 [facility] [place],[address] [place] [address], [address], [place] [facility] [place] 01/21/2024 13:20:03 01/02/20 24 Allergy Immunotherapy Injections completed BLANCA MEEKS RN 100 [facility] [place],[address] [place] [address], [address], [place] [facility] [place] 01/02/2024 13:31:09 12/26/19 24 Allergy Immunotherapy Injections completed BLANCA MEEKS RN 100 [facility] [place],[address] [place] [address], [address], [place] [facility] [place] 12/26/2023 14:09:15 12/19/19 24 Allergy Immunotherapy Injections completed JOSE SMITH 100 [facility] [address], [place], [address], [place] [facility] 12/19/2023 10:09:52 12/12/19 24 Allergy Immunotherapy Injections completed BERNADETTE LOZADAC, RMA [address], [place], [address], [place] [facility] [place] 12/12/2023 11:34:33 12/02/19 24 Allergy Immunotherapy Injections completed BLANCA MEEKS RN [address], [place], [address], [place] [facility] [place] 12/02/2023 09:39:54 11/28/19 24 Allergy Immunotherapy Injections completed BERNADETTE CAICEDOZEC, RMA [address], [place], [address], [place] [facility] [place] 11/28/2023 10:41:02 11/21/19 24 Allergy Immunotherapy Injections completed BERNADETTE LOZADAC, RMA [address], [place], [address], [place] [facility] 11/21/2023 10:30:36 11/14/19 24 Allergy Immunotherapy Injections completed BERNADETTE DEAN, RMA [address], [place], [address], [place] [facility] 11/14/2023 10:59:06 10/31/19 24 Allergy Immunotherapy Injections completed JOSE SMITH [address] [place] [address], [address], [place] [facility] [place] 10/31/2023 12:08:09 10/24/19 24 Allergy Immunotherapy Injections completed BLANCA MEEKS RN 100 [facility] [address], [place], [address], [place] [facility] [place] 10/24/2023 10:43:59 10/17/19 24 Allergy Immunotherapy Injections completed BERNADETTE DEAN, RMA [address], [place], [address], [place] [facility] 10/17/2023 11:52:31 10/09/19 24 Allergy Immunotherapy Injections completed JOSE SMITH [address], [place], [address], [place] [facility] [place] 10/09/2023 10:01:24 10/03/19 24 Allergy Immunotherapy Injections completed BLANCA MEEKS RN [address], [place], [address], [place] [facility] 10/03/2023 10:24:47 09/26/19 24 Allergy Immunotherapy Injections completed BLANCA MEEKS RN [address], [place], [address], [place] [facility] 09/26/2023 14:45:33 09/19/19 24 Allergy Immunotherapy Injections completed BERNADETTE DEAN, RMA [address], [place], [address], [place] [facility] 09/19/2023 12:07:44 09/12/19 24 Allergy Immunotherapy Injections completed BERNADETTE DEAN RMA [address], [place], [address], [place] [facility] 09/12/2023 12:55:19 09/05/19 24 Allergy Immunotherapy Injections completed BERNADETTE DEAN RMA [address], [place], [address], [place] [facility] 09/05/2023 11:15:09 08/22/19 24 Allergy Immunotherapy Injections completed BERNADETTE DEAN RMA [address], [place], [address], [place] [facility] 08/22/2023 12:12:17 08/15/19 24 Allergy Immunotherapy Injections completed RAFY HONEYCUTT Angelina [address], [place], [address], [place] [facility] 08/15/2023 09:54:41 08/08/19 24 Allergy Immunotherapy Injections completed BLANCA MEEKS RN [address], [place], [address], [place] [facility] 08/08/2023 11:08:44 08/01/19 24 Allergy Immunotherapy Injections completed BERNADETTE DEAN, RMA [address], [place], [address], [place] [facility] 08/01/2023 10:34:54 05/30/20 24 Allergy Immunotherapy Injections completed JOSE SMITH 100 [facility],[place] [address], [place], [address], [facility] 07/25/2023 14:35:33 07/11/19 24 Allergy Immunotherapy Injections completed BLANCA MEEKS RN 100 [facility],[place] [address], [place], [address], [facility] 07/11/2023 11:25:39 Imaging Results None recorded. Procedure Notes None recorded. Medical Equipment None Reported. Medications Name Sig Start Date Stop Date Status Note LastModified by Organization Details LastModified Time cetirizin e 10 mg tablet 2020 active Medicati on ID: [id number] B rand Name: cetirizi ne Send Method: [...] mg tablet 04/11 completed Medicati on ID: [id number] D uration Value: 30 Brand Name: ondanset [...] mg tablet 2019 active Medicati on ID: [id number] D uration Value: 90 Brand Name: amlodipi [...] both nostrils 2019 active Medicati on ID: [id number] D uration Value: 30 Brand Name: fluticas [...] aerosol inhaler 05/15 completed Medicati on ID: [id number] D uration Value: 90 Brand Name: Flovent [...] Diagnosis/Indication Diagnosis SNOMED-CT Code Diagnosis ICD10 Code 10908 BLANCA MEEKS RN Allergy [address] [place] [address], it [address] [place] [address] 01/02/2024 12:59:48 01/02/2024 13:31:55 Perennial allergic rhinitis 663721771 J30.89 49221 BLANCA MEEKS RN Allergy [address] [place] [address] it[address] [place] [address] 01/21/2024 13:10:56 01/21/2024 13:20:36 Perennial allergic rhinitis 438973201 J30.89 [id number] BLANCA MEEKS RN Allergy [address] [place] [address] [address] [place] [address] 01/28/2024 10:01:37 01/28/2024 12:07:33 Perennial allergic rhinitis 103605606 J30.89 Health Concerns Section Related Observation LastModified by Organization Detai ls LastModified Time None Recorded Concern Status LastModified by Organization Details LastModified Time None Recorded Payers Encounter Date Sequence Insurance Name Policy Number Policy Edouard Covered Member ID Edouard Member ID Guarantor Name 01/28/2024 1 [facility] [employer] - DIRECT CONNECTORCARE TYPE I (HMO) [id number] Kaylee Soto [id number] Kaylee Soto OBGyn Episode No OBEpisode recorded.
--- OUTSIDE RECORDS SUMMARY | 2024-02-25 10:43 | XMS_ITS | Continuity of Care Document ---
Author Organization [place] - [facility], Allergy Address [address] [address] Care Team Providers Care Childhood Development Teacher Name Role Phone PINA VERGARA Primary Care Provider Assessment Encounter Date Assessment Date Assessment LastModified by Organization Details LastModified Time 12/02/2023 12/02/2023 Administered By: Blanca Meeks RN Use of Antihistamines: Yes If yes: Vial Test Change in medications: No If yes ?? Increase in asthma symptoms No If yes, inhaler use: Reaction to last injections: No If yes: ?? Allergy Symptoms: Other: ?? Missed 1 week Dose Notes:?? [email or web address] Not available 12/02/2023 09:40:11 Plan of Treatment Reminders Order Date Submit Date Provider Last Modified By Organization Details Last Modified Time Details Appointments [facility]- Allergy f-up 6mon 2024 09:00A [...] Type 2 diabetes mellitus without complicat ion 853576856 Active 2021 Type 2 diabetes mellitus without complicat ions; Note: Date Diagnosed : 09/27/2021 9:02 AM (E11.9) Not Available [facility] 02:39:44 Bleeding from nose 662825526 Active 2022 Epistaxis ; Note: Date Diagnosed : 04/11/2022 8:55 AM (R04.0) Not Available [facility] 02:39:40 Allergic rhinitis 21055263 Active 2023 Allergic rhinitis: Due to other [...] 11/22/2021 9:31 AM (477.8) Note Not Available [facility] 4 01:04:43 Nasal congestio n 13688954 Active 2019 Nasal congestio n; Note: Date Diagnosed : 04/29/2019 11:19 AM (R09.81) Not Available [facility] 4 02:39:41 Essential hypertens ion 41352789 Active 2019 Essential (primary) hypertens ion; Note: Date Diagnosed : 04/29/2019 11:20 AM (I10) Not Available [facility] 4 02:39:50 Migraine without aura, not refractor y 413522516 Active 2019 Migraine without aura, not intractab le, without status migrainos us; Note: Date Diagnosed : 04/29/2019 11:19 AM (G43.009) Not Available [facility] 4 02:39:40 Chronic rhinitis 54968527 Active 2019 Chronic rhinitis; Note: Date Diagnosed : 04/29/2019 11:19 AM (J31.0) Not Available [facility] 4 02:39:44 Headache 00961589 Active 2019 Facial pain NOS; Note: Date Diagnosed : 04/29/2019 11:19 AM (R51) Not Available [facility] 4 02:39:42 Snoring 77532681 Active 2020 Snoring; Note: Date Diagnosed : 1 8:53 AM (R06.83) Not Available [facility] 4 02:39:46 History of SARS-CoV- 2 [id number] 3664130 Active 2021 Personal history of COVID-19; Note: Date Diagnosed : 2 3:13 PM (Z86.16) Not Available [facility] 4 02:39:49 Uncomplic ated mild persisten t asthma 349807103 Active 2019 Mild persisten t asthma NOS; Note: Date Diagnosed : 02/01/2020 10:37 AM (J45.30) Not Available [facility] 4 02:39:40 Perennial allergic rhinitis 721062478 Active 2023 BLANCA MEEKS RN [address] [place] [address] [place], [address] , [place] [facility] 11:24:20 Problem Notes None recorded. Procedures Surgical History Date Name Laterality Status Provider Name and Address Organization Details Recorded Time 02/24/20 24 Allergy Immunotherapy Injections completed JOSE SMITH [address], [address], [place] [facility] 02/24/2024 12:05:12 02/17/20 24 Allergy Immunotherapy Injections completed BLANCA MEEKS RN [address], [address], [place] [facility] 02/17/2024 13:33:14 02/06/20 24 Allergy Immunotherapy Injections completed BLANCA MEEKS RN [address] [place] [address], [address], [place] [facility] 02/06/2024 10:53:39 01/28/20 24 Allergy Immunotherapy Injections completed BLANCA MEEKS RN [address] [place] [address], [address], [place] [facility] 01/28/2024 12:07:01 01/21/20 24 Allergy Immunotherapy Injections completed BLANCA MEEKS RN [address] [place] [address], [address], [place] [facility] 01/21/2024 13:20:03 01/02/20 24 Allergy Immunotherapy Injections completed BLANCA MEEKS RN [address] [place] [address], [address], [place] [facility] 01/02/2024 13:31:09 12/26/19 24 Allergy Immunotherapy Injections completed BLANCA MEEKS RN [address] [place] [address], [address], [place] [facility] 12/26/2023 14:09:15 12/19/19 24 Allergy Immunotherapy Injections completed JOSE SMITH [address], [address], [place] [facility] 12/19/2023 10:09:52 12/12/19 24 Allergy Immunotherapy Injections completed BERNADETTE LOZADAC, RMA [address], [place], [address], [place] [facility] 12/12/2023 11:34:33 12/02/19 24 Allergy Immunotherapy Injections completed BLANCA MEEKS RN [address], [place], [address], [place] [facility] 12/02/2023 09:39:54 11/28/19 24 Allergy Immunotherapy Injections completed BERNADETTE CAICEDOZEC, RMA [address], [place], [address], [place] [facility] 11/28/2023 10:41:02 11/21/19 24 Allergy Immunotherapy Injections completed BERNADETTE LOZADAC, RMA [address], [place], [address], [place] [facility] 11/21/2023 10:30:36 11/14/19 24 Allergy Immunotherapy Injections completed BERNADETTE DEAN, RMA [address], [place], [address], [place] [facility] 11/14/2023 10:59:06 10/31/19 24 Allergy Immunotherapy Injections completed JOSE SMITH [address] [place] [address], [address], [place] [facility] 10/31/2023 12:08:09 10/24/19 24 Allergy Immunotherapy Injections completed BLANCA MEEKS RN [address], [address], [place] [facility] 10/24/2023 10:43:59 10/17/19 24 Allergy Immunotherapy Injections completed BERNADETTE DEAN, RMA [address], [address], [place] [facility] 10/17/2023 11:52:31 10/09/19 24 Allergy Immunotherapy Injections completed JOSE SMITH [address], [address], [place] [facility] 10/09/2023 10:01:24 10/03/19 24 Allergy Immunotherapy Injections completed BLANCA MEEKS RN [address], [place], [address], [place] [facility] 10/03/2023 10:24:47 09/26/19 24 Allergy Immunotherapy Injections completed BLANCA MEEKS RN [address], [place], [address], [place] [facility] 09/26/2023 14:45:33 09/19/19 24 Allergy Immunotherapy Injections completed BERNADETTE DEAN, RMA [address], [place], [address], [place] [facility] 09/19/2023 12:07:44 09/12/19 24 Allergy Immunotherapy Injections completed BERNADETTE DEAN RMA [address], [place], [address], [place] [facility] 09/12/2023 12:55:19 09/05/19 24 Allergy Immunotherapy Injections completed BERNADETTE DEAN RMA [address], [place], [address], [place] [facility] 09/05/2023 11:15:09 08/22/19 24 Allergy Immunotherapy Injections completed BERNADETTE DEAN RMA [address], [place], [address], [place] [facility] 08/22/2023 12:12:17 08/15/19 24 Allergy Immunotherapy Injections completed RAFY HONEYCUTT Angelina [address], [place], [address], [place] [facility] 08/15/2023 09:54:41 08/08/19 24 Allergy Immunotherapy Injections completed BLANCA MEEKS RN [address], [place], [address], [place] [facility] 08/08/2023 11:08:44 08/01/19 24 Allergy Immunotherapy Injections completed BERNADETTE DEAN, RMA [address], [place], [address], [place] [facility] 08/01/2023 10:34:54 05/30/20 24 Allergy Immunotherapy Injections completed JOSE SMITH [address] [facility],[place] [address], [place], [address], [facility] 07/25/2023 14:35:33 07/11/19 24 Allergy Immunotherapy Injections completed BLANCA MEEKS RN [address] [facility],[place] [address], [place], [address], [facility] 07/11/2023 11:25:39 Imaging Results None recorded. Procedure Notes None recorded. Medical Equipment None Reported. Medications Name Sig Start Date Stop Date Status Note LastModified by Organization Details LastModified Time cetirizin e 10 mg tablet 2020 active Medicati on ID: [id number] B rand Name: cetirizi ne Send Method: [...] mg tablet 04/11 completed Medicati on ID: [id number] D uration Value: 30 Brand Name: ondanset [...] mg tablet 2019 active Medicati on ID: [id number] D uration Value: 90 Brand Name: amlodipi [...] both nostrils 2019 active Medicati on ID: [id number] D uration Value: 30 Brand Name: fluticas [...] aerosol inhaler 05/15 completed Medicati on ID: [id number] D uration Value: 90 Brand Name: Flovent [...] Available Not Available No t Available Vitals Date Recorded Body height Body mass index (BMI) Body weight Provider Name and Address Organization Details Last Updated DateTime 12/02/2023 162.56 cm 34 kg/m2 98908.29 g Luz Portillo [place] - [facility] 12/02/2023 09:06:47 Social History None recorded. Functional Status None recorded. Mental Status None recorded. Family History Nothing Reported. Medical History No medical history recorded. Gynecological HistoryNo gynecological history recorded. Obstetrics History GPAL:G 0 P 0 0 0 0 Past Encounters Encounter ID Performer Location Encounter Start Date Encounter Closed Date Diagnosis/Indication Diagnosis SNOMED-CT Code Diagnosis ICD10 Code [id number] BERNADETTE KIERRA [facility] Allergy [address] [place], [place] [address] [address] 11/14/2023 10:19:55 11/14/2023 10:59:41 Perennial allergic rhinitis 404049767 J30.89 [id number] [facility] [address] [place] [address] [place] [address] 11/21/2023 09:53:49 11/21/2023 10:30:59 Perennial allergic rhinitis 969300074 J30.89 [facility] [address] [place] [address] [place] [address] 11/28/2023 10:29:29 11/28/2023 10:39:53 Perennial allergic rhinitis 944971716 J30.89 CLARA LARA MD [facility] [address] [place] [address] 12/02/2023 08:50:33 12/02/2023 09:18:14 Allergic rhinitis 85842835 J30.89 BLANCA MEEKS RN Allergy [address] [place], [place] [address] [address] 12/02/2023 08:50:33 12/02/2023 09:18:14 Perennial allergic rhinitis 002182394 J30.89 Health Concerns Section Related Observation LastModified by Organization Detai ls LastModified Time None Recorded Concern Status LastModified by Organization Details LastModified Time None Recorded Payers Encounter Date Sequence Insurance Name Policy Number Policy Edouard Covered Member ID Edouard Member ID Guarantor Name 12/02/2023 1 [facility] [employer] DIRECT [employer]CARE TYPE I (HMO) [id number] Kaylee Charles [id number] Kaylee Soto Notes Date Note Type Note Provider Name and Address Organization Details Recorded Time 12/02/2023 text/html 37-year-old jaylene montejo presents for 6-month recheck on immunotherapy. Has been undergoing subcutaneous immunotherapy since July 2019. She reports she still feels she is receiving good benefit from the injections. She sometimes has a small amount of puffiness at the injection site, but this is greatly improved from previously. Her EpiPen is up-to-date and she has never had to use it. She continues to take Claritin but no nasal sprays. She also takes Singulair for her asthma. CLARA JACOB MD [address] [place] [address], [address], [facility] - [facility] 12/02/2023 11:39:15 OBGyn Episode No OBEpisode recorded.
--- OUTSIDE RECORDS SUMMARY | 2024-02-25 10:43 | XMS_ITS | Continuity of Care Document ---
Author Organization [place] - [facility], E[facility] Address [address] [place] [address] Care Team Providers Care Mechanical Engineering Lecturer Name Role Phone PINA VERGARA Primary Care Provider Assessment Encounter Date Assessment Date Assessment LastModified by Organization Details LastModified Time 12/02/2023 12/02/2023 Patient doing well on subcutaneous immunotherapy. Start date was July 2019. Recommend continuing, with 6-month recheck with medical provider. No refill needed on EpiPen or Claritin today. [email or web address] Not available 12/02/2023 09:52:18 Plan of Treatment Reminders Order Date Submit Date Provider Last Modified By Organization Details Last Modified Time Details [facility]ments [facility]mon 2024 09:00A M BERNARDO [...] Type 2 diabetes mellitus without complicat ion 875396831 Active 2021 Type 2 diabetes mellitus without complicat ions; Note: Date Diagnosed : 09/27/2021 9:02 AM (E11.9) Not Available [facility] 4 02:39:44 Bleeding from nose 948799360 Active 2022 Epist[facility] ; Note: Date Diagnosed : 04/11/2022 8:55 AM (R04.0) Not Available [facility] 4 02:39:40 Allergic rhinitis 63842716 Active 2023 Allergic rhinitis: Due to other [...] 9:09 AM (477.8) ; Start Date : 02/15/202 3 Allergi c rhinitis: Due to other [...] 9:31 AM (477.8) Note Not Available [facility] 4 01:04:43 Nasal congestio n 61040697 Active 2019 Nasal congestio n; Note: Date Diagnosed : 04/29/2019 11:19 AM (R09.81) Not Available [facility] 02:39:41 Essential hypertens ion 76296671 Active 2019 Essential (primary) hypertens ion; Note: Date Diagnosed : 04/29/2019 11:20 AM (I10) Not Available [facility] 02:39:50 Migraine without aura, not refractor y 398359050 Active 2019 Migraine without aura, not intractab le, without status migrainos us; Note: Date Diagnosed : 04/29/2019 11:19 AM (G43.009) Not Available [facility] 02:39:40 Chronic rhinitis 18343527 Active 2019 Chronic rhinitis; Note: Date Diagnosed : 04/29/2019 11:19 AM (J31.0) Not Available [facility] 02:39:44 Headache 65505002 Active 2019 Facial pain NOS; Note: Date Diagnosed : 04/29/2019 11:19 AM (R51) Not Available [facility] 02:39:42 Snoring 59587064 Active 2020 Snoring; Note: Date Diagnosed : 1 8:53 AM (R06.83) Not Available [facility] 02:39:46 History of SARS-CoV- 2 [id number] 0249360 Active 2021 Personal history of COVID-19; Note: Date Diagnosed : 2 3:13 PM (Z86.16) Not Available [facility] 4 02:39:49 Uncomplic ated mild persisten t asthma 486190643 Active 2019 Mild persisten t asthma NOS; Note: Date Diagnosed : 02/01/2020 10:37 AM (J45.30) Not Available [facility] 4 02:39:40 Perennial allergic rhinitis 866361235 Active 2023 BLANCA MEEKS RN [address] [place] [address], [place], [address] , [place] [facility] 4 11:24:20 Problem Notes None recorded. Procedures Surgical History Date Name Laterality Status Provider Name and Address Organization Details Recorded Time 02/24/20 Allergy Immunotherapy Injections completed JOSE SMITH [address],[place]UD[place] [address] [place] [address], [address], [place] [facility] 02/24/2024 12:05:12 02/17/20 24 Allergy Immunotherapy Injections completed BLANCA MEEKS RN [address] [facility] [place] [address] [place] [address], [address], [place] [facility] 02/17/2024 13:33:14 02/06/20 24 Allergy Immunotherapy Injections completed BLANCA MEEKS RN [address] [facility] [place] [address] [place] [address], [address], [place] [facility] 02/06/2024 10:53:39 01/28/20 24 Allergy Immunotherapy Injections completed BLANCA MEEKS RN [address] [facility] [place] [address] [place] [address], [address], [place] [facility] 01/28/2024 12:07:01 01/21/20 24 Allergy Immunotherapy Injections completed BLANCA MEEKS RN 100 [facility],JUDY [address] [place] [address], [address], [place] [facility] 01/21/2024 13:20:03 01/02/20 24 Allergy Immunotherapy Injections completed BLANCA MEEKS RN [address],[place] [address] [place] [address], [address], [place] [facility] 01/02/2024 13:31:09 12/26/19 24 Allergy Immunotherapy Injections completed BLANCA MEEKS RN 100 [facility],JUDY [address] [place] [address], [address], [place] [facility] 12/26/2023 14:09:15 12/19/19 24 Allergy Immunotherapy Injections completed JOSE SMITH [address],[place] [address] [place] [address], [address], [place] [facility] 12/19/2023 10:09:52 12/12/19 24 Allergy Immunotherapy Injections completed JOSE GONZALES [address],[place] [address], [place], [address], [place] [facility] 12/12/2023 11:34:33 12/02/19 24 Allergy Immunotherapy Injections completed BLANCA MEEKS RN [address],[place] [address], [place], [address], [place] [facility] 12/02/2023 09:39:54 11/28/19 24 Allergy Immunotherapy Injections completed BERNADETTE DEAN, RMA [address], [place], [address], [place] [facility] 11/28/2023 10:41:02 11/21/19 24 Allergy Immunotherapy Injections completed BERNADETTE DEAN, RMA [address],[place] [address], [place], [address], [place] [facility] 11/21/2023 10:30:36 11/14/19 24 Allergy Immunotherapy Injections completed BERNADETTE DEAN, RMA [address],JUDY [address] [place] [address], [address], [place] [facility] 11/14/2023 10:59:06 10/31/19 24 Allergy Immunotherapy Injections completed JOSE SMITH [address],JUDY [facility], [place], [address], [place] [facility] 10/31/2023 12:08:09 10/24/19 24 Allergy Immunotherapy Injections completed BLANCA MEEKS RN [address],[place] [place] [address], [address], [place] [facility] 10/24/2023 10:43:59 10/17/19 24 Allergy Immunotherapy Injections completed BERNADETTE DEAN RMA [address], [place], [address], [place] [facility] 10/17/2023 11:52:31 10/09/19 24 Allergy Immunotherapy Injections completed JOSE SMITH [address],[place] [address], [place], [address], [place] [facility] 10/09/2023 10:01:24 10/03/19 24 Allergy Immunotherapy Injections completed BLANCA MEEKS RN [address], [place], [address], [place] [facility] 10/03/2023 10:24:47 09/26/19 24 Allergy Immunotherapy Injections completed BLANCA MEEKS RN [address],[place] [address], [place], [address], [place] [facility] 09/26/2023 14:45:33 09/19/19 24 Allergy Immunotherapy Injections completed BERNADETTE DEAN, RMA [address],[place] [address], [place], [address], [place] [facility] 09/19/2023 12:07:44 09/12/19 24 Allergy Immunotherapy Injections completed BERNADETTE DEAN RMA [address] [place] [address], [address], [place] [facility] 09/12/2023 12:55:19 09/05/19 24 Allergy Immunotherapy Injections completed BERNADETTE DEAN RMA [address] [facility] [place] [address] [place] [address], [address], [place] [facility] 09/05/2023 11:15:09 08/22/19 24 Allergy Immunotherapy Injections completed BERNADETTE DEAN RMA [address],[place] [place] [address], [address], [place] [facility] 08/22/2023 12:12:17 08/15/19 24 Allergy Immunotherapy Injections completed JOSE SMITH [address],[place] [place] [address], [address], [place] [facility] 08/15/2023 09:54:41 08/08/19 24 Allergy Immunotherapy Injections completed BLANCA MEEKS RN [address],[place] [address], [place], [address], [place] [facility] 08/08/2023 11:08:44 08/01/19 24 Allergy Immunotherapy Injections completed BERNADETTE DAEN RMA [address],[place] [address], [place], [address], [place] [facility] 08/01/2023 10:34:54 07/25/19 24 Allergy Immunotherapy Injections completed JOSE SMITH 100 [facility],[address], [address], [place] [facility] 07/25/2023 14:35:33 07/11/19 24 Allergy Immunotherapy Injections completed BLANCA MEEKS RN 100 [facility] [address], [place], [address], [place] [facility] 07/11/2023 11:25:39 Imaging Results None recorded. Procedure Notes None recorded. Medical Equipment None Reported. Medications Name Sig Start Date Stop Date Status Note LastModified by Organization Details LastModified Time cetirizin e 10 mg tablet 2020 active Medicati on ID: [id number] B rand Name: cetirizi ne Send Method: [...] mg tablet 04/11 completed Medicati on ID: [id number] D uration Value: 30 Brand Name: ondanset [...] mg tablet 2019 active Medicati on ID: [id number] D uration Value: 90 Brand Name: amlodipi [...] both nostrils 2019 active Medicati on ID: [id number] D uration Value: 30 Brand Name: fluticas [...] aerosol inhaler 05/15 completed Medicati on ID: [id number] D uration Value: 90 Brand Name: Flovent [...] Updated DateTime 12/02/2023 162.56 cm 34 kg/m2 86948.29 g Luz Portillo [place] - [facility] 12/02/2023 09:06:47 Social History None recorded. Functional Status None recorded. Mental Status None recorded. Family History Nothing Reported. Medical History No medical history recorded. Gynecological HistoryNo gynecological history recorded. Obstetrics History GPAL:G 0 P 0 0 0 0 Past Encounters Encounter ID Performer Location Encounter Start Date Encounter Closed Date Diagnosis/Indication Diagnosis SNOMED-CT Code Diagnosis ICD10 Code [id number] BERNADETTE LOZADA [facility] Allergy [address] [place] [address] it [address] [place] [address] 11/14/2023 10:19:55 11/14/2023 10:59:41 Perennial allergic rhinitis 347080760 J30.89 [facility] All[facility] [address] [place] [address] ite [address] [place] [address] 11/21/2023 09:53:49 11/21/2023 10:30:59 Perennial allergic rhinitis 444614175 J30.89 [facility] All[facility] [address] [place] [address] ite [address] [place] [address] 11/28/2023 10:29:29 11/28/2023 10:39:53 Perennial allergic rhinitis 949119006 J30.89 CLARA LARA MD [facility]NT[facility] of [address] [address] 12/02/2023 08:50:33 12/02/2023 09:18:14 Allergic rhinitis 99085300 J30.89 BLANCA MEEKS RN Allergy [address] [place] [address] ite [address] [place] [address] 12/02/2023 08:50:33 12/02/2023 09:18:14 Perennial allergic rhinitis 252060652 J30.89 Health Concerns Section Related Observation LastModified by Organization Detai ls LastModified Time None Recorded Concern Status LastModified by Organization Details LastModified Time None Recorded Payers Encounter Date Sequence Insurance Name Policy Number Policy Edouard Covered Member ID Edouard Member ID Guarantor Name 12/02/2023 1 [facility] [employer] - DIRECT CONNECTORCARE TYPE I (HMO) [id number] Kaylee Soto [id number] 2 Kaylee Soto Notes Date Note Type [...] Singulair for her asthma. CLARA JACOB MD [address] [place] [address], [place], [address], [facility] - [facility] 12/02/2023 11:39:15 OBGyn Episode No OBEpisode recorded.
--- OUTSIDE RECORDS SUMMARY | 2024-02-25 10:43 | XMS_ITS | Continuity of Care Document ---
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 Increase in asthma symptoms No If yes, inhaler use: Reaction to last injections: No If yes: ?? Allergy Symptoms: Other: ?? Missed 1 week Dose Notes:?? [email or web address] Not available 01/02/2024 13:31:25 Plan of Treatment Reminders Order Date Submit Date Provider Last Modified By Organization Details Last Modified Time Details Appointments [facility]- Allergy f-up 6mon 2024 09:00A M [...] Type 2 diabetes mellitus without complicat ion 141642938 Active 2021 Type 2 diabetes mellitus without complicat ions; Note: Date Diagnosed : 09/27/2021 9:02 AM (E11.9) Not Available [facility] 02:39:44 Bleeding from nose 040353946 Active 2022 Epistaxis ; Note: Date Diagnosed : 04/11/2022 8:55 AM (R04.0) Not Available [facility] 02:39:40 Allergic rhinitis 43207813 Active 2023 Allergic rhinitis: Due to other [...] [facility] 4 01:04:43 Nasal congestio n 74528846 Active 2019 Nasal congestio n; Note: Date Diagnosed : 04/29/2019 11:19 AM (R09.81) Not Available [facility] 4 02:39:41 Essential hypertens ion 56342553 Active 2019 Essential (primary) hypertens ion; Note: Date Diagnosed : 04/29/2019 11:20 AM (I10) Not Available [facility] 4 02:39:50 Migraine without aura, not refractor y 786094651 Active 2019 Migraine without aura, not intractab le, without status migrainos us; Note: Date Diagnosed : 04/29/2019 11:19 AM (G43.009) Not Available [facility] 4 02:39:40 Chronic rhinitis 73166431 Active 2019 Chronic rhinitis; Note: Date Diagnosed : 04/29/2019 11:19 AM (J31.0) Not Available [facility] 4 02:39:44 Headache 61310079 Active 2019 Facial pain NOS; Note: Date Diagnosed : 04/29/2019 11:19 AM (R51) Not Available [facility] 4 02:39:42 Snoring 11815186 Active 2020 Snoring; Note: Date Diagnosed : 1 8:53 AM (R06.83) Not Available [facility] 4 02:39:46 History of SARS-CoV- 2 93502586470 9322582 Active 2021 Personal history of COVID-19; Note: Date Diagnosed : 2 3:13 PM (Z86.16) Not Available [facility] 4 02:39:49 Uncomplic ated mild persisten t asthma 871300470 Active 2019 Mild persisten t asthma NOS; Note: Date Diagnosed : 02/01/2020 10:37 AM (J45.30) Not Available [facility] 4 02:39:40 Perennial allergic rhinitis 385356038 Active 2023 BLANCA MEEKS RN [address] [place] [address] [place], [address] , [place] [facility] 11:24:20 Problem Notes None recorded. Procedures Surgical History Date Name Laterality Status Provider Name and Address Organization Details Recorded Time 02/24/20 24 Allergy Immunotherapy Injections completed JOSE SMITH [address],[place] [address], [address], [place] [facility] 02/24/2024 12:05:12 02/17/20 24 Allergy Immunotherapy Injections completed BLANCA MEEKS RN [address],[place] [address], [address], [place] [facility] 02/17/2024 13:33:14 02/06/20 24 Allergy Immunotherapy Injections completed BLANCA MEEKS RN [address] [facility] [address] [place] [address], [address], [place] [facility] 02/06/2024 10:53:39 01/28/20 24 Allergy Immunotherapy Injections completed BLANCA MEESK RN [address] [facility] [place] [address] [place] [address], [address], [place] [facility] 01/28/2024 12:07:01 01/21/20 24 Allergy Immunotherapy Injections completed BLANCA MEEKS RN [address] [facility] [place] [address] [place] [address], [address], [place] [facility] 01/21/2024 13:20:03 01/02/20 24 Allergy Immunotherapy Injections completed BLANCA MEEKS RN [address] [facility] [place] [address] [place] [address], [address], [place] [facility] 01/02/2024 13:31:09 12/26/19 24 Allergy Immunotherapy Injections completed BLANCA MEEKS RN [address] [facility] [place] [address] [place] [address], [address], [place] [facility] 12/26/2023 14:09:15 12/19/19 24 Allergy Immunotherapy Injections completed JOSE SMITH [address],[place] [address], [address], [place] [facility] 12/19/2023 10:09:52 12/12/19 24 Allergy Immunotherapy Injections completed BERNADETTE LOZADAC, RMA [address], [place], [address], [place] [facility] 12/12/2023 11:34:33 12/02/19 24 Allergy Immunotherapy Injections completed BLANCA MEEKS RN [address], [place], [address], [place] [facility] 12/02/2023 09:39:54 11/28/19 24 Allergy Immunotherapy Injections completed BERNADETTE CAICEDOZEC, RMA [address], [place], [address], [place] [facility] 11/28/2023 10:41:02 11/21/19 24 Allergy Immunotherapy Injections completed BERNADETTE LOZADAC, RMA [address], [place], [address], [place] [facility] 11/21/2023 10:30:36 11/14/19 24 Allergy Immunotherapy Injections completed BERNADETTE DEAN, RMA [address], [place], [address], [place] [facility] 11/14/2023 10:59:06 10/31/19 24 Allergy Immunotherapy Injections completed JOSE SMITH [address],[place] [place] [address], [address], [place] [facility] 10/31/2023 12:08:09 10/24/19 24 Allergy Immunotherapy Injections completed BLANCA MEEKS RN [address],[place], [address], [place] [facility] 10/24/2023 10:43:59 10/17/19 24 Allergy Immunotherapy Injections completed BERNADETTE DEAN, RMA [address],[place] [address], [address], [place] [facility] 10/17/2023 11:52:31 10/09/19 24 Allergy Immunotherapy Injections completed JOSE SMITH [address],[place] [address], [address], [place] [facility] 10/09/2023 10:01:24 10/03/19 24 Allergy Immunotherapy Injections completed BLANCA MEEKS RN [address], [place], [address], [place] [facility] 10/03/2023 10:24:47 09/26/19 24 Allergy Immunotherapy Injections completed BLANCA MEEKS RN [address], [place], [address], [place] [facility] 09/26/2023 14:45:33 09/19/19 24 Allergy Immunotherapy Injections completed BERNADETTE DEAN, RMA [address], [place], [address], [place] [facility] 09/19/2023 12:07:44 09/12/19 24 Allergy Immunotherapy Injections completed BERNADETTE DEAN RMA [address], [place], [address], [place] [facility] 09/12/2023 12:55:19 09/05/19 24 Allergy Immunotherapy Injections completed BERNADETTE DEAN RMA [address], [place], [address], [place] [facility] 09/05/2023 11:15:09 08/22/19 24 Allergy Immunotherapy Injections completed BERNADETTE DEAN RMA [address], [place], [address], [place] [facility] 08/22/2023 12:12:17 08/15/19 24 Allergy Immunotherapy Injections completed RAFY HONEYCUTT Angelina [address], [place], [address], [place] [facility] 08/15/2023 09:54:41 08/08/19 24 Allergy Immunotherapy Injections completed BLANCA MEEKS RN [address], [place], [address], [place] [facility] 08/08/2023 11:08:44 08/01/19 24 Allergy Immunotherapy Injections completed BERNADETTE DEAN, RMA [address], [place], [address], [place] [facility] 08/01/2023 10:34:54 05/30/20 24 Allergy Immunotherapy Injections completed JOSE SMITH 100 [facility],[place] [address], [place], [address], [facility] 07/25/2023 14:35:33 07/11/19 24 Allergy Immunotherapy Injections completed BLANCA MEEKS RN 100 [facility],[place] [address], [place], [address], [facility] 07/11/2023 11:25:39 Imaging Results None recorded. Procedure Notes None recorded. Medical Equipment None Reported. Medications Name Sig Start Date Stop Date Status Note LastModified by Organization Details LastModified Time cetirizin e 10 mg tablet 2020 active Medicati on ID: [id number] B rand Name: cetirizi ne Send Method: [...] mg tablet 04/11 completed Medicati on ID: [id number] D uration Value: 30 Brand Name: ondanset [...] mg tablet 2019 active Medicati on ID: [id number] D uration Value: 90 Brand Name: amlodipi [...] both nostrils 2019 active Medicati on ID: [id number] D uration Value: 30 Brand Name: fluticas [...] aerosol inhaler 05/15 completed Medicati on ID: [id number] D uration Value: 90 Brand Name: Flovent [...] Diagnosis/Indication Diagnosis SNOMED-CT Code Diagnosis ICD10 Code [id number] CLARA LARA MD [facility] of [address] [address] 12/02/2023 08:50:33 12/02/2023 09:18:14 Allergic rhinitis 59192007 J30.89 [id number] BLANCA MEEKS RN Allergy [address] [place] [address] 12/02/2023 08:50:33 12/02/2023 09:18:14 Perennial allergic rhinitis 864071822 J30.89 [id number] [facility] Allergy [address] [place] [address] 12/12/2023 09:23:45 12/12/2023 11:35:20 Perennial allergic rhinitis 125008913 J30.89 [id number] RAFY HONEYCUTT [facility] Allergy [address] [place] [address] 12/19/2023 09:40:27 12/19/2023 10:11:35 Perennial allergic rhinitis 906898806 J30.89 [id number] BLANCA MEEKS RN Allergy [address] [place] [address] 12/26/2023 13:32:02 12/26/2023 14:09:51 Perennial allergic rhinitis 053306032 J30.89 [id number] BLANCA MEEKS RN Allergy [address] [place] [address] 01/02/2024 12:59:48 01/02/2024 13:31:55 Perennial allergic rhinitis 591161666 J30.89 Health Concerns Section Related Observation LastModified by Organization Detai ls LastModified Time None Recorded Concern Status LastModified by Organization Details LastModified Time None Recorded Payers Encounter Date Sequence Insurance Name Policy Number Policy Edouard Covered Member ID Edouard Member ID Guarantor Name 01/02/2024 1 [facility] - DIRECT CONNECTORCARE TYPE I (O) [id number] Kaylee Soto [id number] Kaylee Soto OBGyhannah Episode No OBEpisode recorded.
--- OUTSIDE RECORDS SUMMARY | 2024-02-25 10:43 | XMS_ITS | Continuity of Care Document ---
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 Increase in asthma symptoms No If yes, inhaler use: Reaction to last injections: No If yes: ?? Allergy Symptoms: Other: ?? Missed 1 week Dose Notes:?? [email or web address] Not available 12/26/2023 14:09:28 Plan of Treatment Reminders Order Date Submit Date Provider Last Modified By Organization Details Last Modified Time Details Appointments [facility]- Allergy f-up 6mon 2024 09:00A M [...] Type 2 diabetes mellitus without complicat ion [id number] Active 2021 Type 2 diabetes mellitus without complicat ions; Note: Date Diagnosed : 09/27/2021 9:02 AM (E11.9) Not Available [facility] 02:39:44 Bleeding from nose 233695663 Active 2022 Epistaxis ; Note: Date Diagnosed : 04/11/2022 8:55 AM (R04.0) Not Available [facility] 02:39:40 Allergic rhinitis 79554229 Active 2023 Allergic rhinitis: Due to other [...] 11/22/2021 9:31 AM (477.8) Note Not Available [facility] 4 01:04:43 Nasal congestio n 96921149 Active 2019 Nasal congestio n; Note: Date Diagnosed : 04/29/2019 11:19 AM (R09.81) Not Available [facility] 4 02:39:41 Essential hypertens ion 57991190 Active 2019 Essential (primary) hypertens ion; Note: Date Diagnosed : 04/29/2019 11:20 AM (I10) Not Available [facility] 4 02:39:50 Migraine without aura, not refractor y 672780743 Active 2019 Migraine without aura, not intractab le, without status migrainos us; Note: Date Diagnosed : 04/29/2019 11:19 AM (G43.009) Not Available [facility] 4 02:39:40 Chronic rhinitis 56055878 Active 2019 Chronic rhinitis; Note: Date Diagnosed : 04/29/2019 11:19 AM (J31.0) Not Available [facility] 4 02:39:44 Headache 53357047 Active 2019 Facial pain NOS; Note: Date Diagnosed : 04/29/2019 11:19 AM (R51) Not Available [facility] 4 02:39:42 Snoring 42485323 Active 2020 Snoring; Note: Date Diagnosed : 1 8:53 AM (R06.83) Not Available [facility] 4 02:39:46 History of SARS-CoV- 2 [id number] 6013484 Active 2021 Personal history of COVID-19; Note: Date Diagnosed : 2 3:13 PM (Z86.16) Not Available [facility] 4 02:39:49 Uncomplic ated mild persisten t asthma 783760065 Active 2019 Mild persisten t asthma NOS; Note: Date Diagnosed : 02/01/2020 10:37 AM (J45.30) Not Available [facility] 4 02:39:40 Perennial allergic rhinitis 539305436 Active 2023 BLANCA MEEKS RN [address] [place] [address] [place], [address] , [place] [facility] 11:24:20 Problem Notes None recorded. Procedures Surgical History Date Name Laterality Status Provider Name and Address Organization Details Recorded Time 02/24/20 24 Allergy Immunotherapy Injections completed JOSE SMITH [address], [place], [address], [place] [facility] 02/24/2024 12:05:12 02/17/20 24 Allergy Immunotherapy Injections completed BLANCA MEEKS RN [address], [place], [address], [place] [facility] 02/17/2024 13:33:14 02/06/20 24 Allergy Immunotherapy Injections completed BLANCA MEEKS RN [address] [place],[address] [place] [address], [address], [place] [facility] 02/06/2024 10:53:39 01/28/20 24 Allergy Immunotherapy Injections completed BLANCA MEEKS RN [address] [place],[address] [place] [address], [address], [place] [facility] 01/28/2024 12:07:01 01/21/20 24 Allergy Immunotherapy Injections completed BLANCA MEEKS RN [address] [place],[address] [place] [address], [address], [place] [facility] 01/21/2024 13:20:03 01/02/20 24 Allergy Immunotherapy Injections completed BLANCA MEEKS RN [address] [place],[address] [place] [address], [address], [place] [facility] 01/02/2024 13:31:09 12/26/19 24 Allergy Immunotherapy Injections completed BLANCA MEEKS RN [address] [place],[address] [place] [address], [address], [place] [facility] 12/26/2023 14:09:15 12/19/19 24 Allergy Immunotherapy Injections completed JOSE SMITH [address], [place], [address], [place] [facility] 12/19/2023 10:09:52 12/12/19 24 Allergy Immunotherapy Injections completed BERNADETTE LOZADAC, RMA [address], [place], [address], [place] [facility] 12/12/2023 11:34:33 12/02/19 24 Allergy Immunotherapy Injections completed BLANCA MEEKS RN [address], [place], [address], [place] [facility] 12/02/2023 09:39:54 11/28/19 24 Allergy Immunotherapy Injections completed BERNADETTE CAICEDOZEC, RMA [address], [place], [address], [place] [facility] 11/28/2023 10:41:02 11/21/19 24 Allergy Immunotherapy Injections completed BERNADETTE LOZADAC, RMA [address], [place], [address], [place] [facility] 11/21/2023 10:30:36 11/14/19 24 Allergy Immunotherapy Injections completed BERNADETTE DEAN, RMA [address], [place], [address], [place] [facility] 11/14/2023 10:59:06 10/31/19 24 Allergy Immunotherapy Injections completed JOSE SMITH [address] [place] [address], [address], [place] [facility] 10/31/2023 12:08:09 10/24/19 24 Allergy Immunotherapy Injections completed BLANCA MEEKS RN [address], [place], [address], [place] [facility] 10/24/2023 10:43:59 10/17/19 24 Allergy Immunotherapy Injections completed BERNADETTE DEAN, RMA [address], [place], [address], [place] [facility] 10/17/2023 11:52:31 10/09/19 24 Allergy Immunotherapy Injections completed JOSE SMITH [address], [place], [address], [place] [facility] 10/09/2023 10:01:24 10/03/19 24 Allergy Immunotherapy Injections completed BLANCA MEEKS RN [address], [place], [address], [place] [facility] 10/03/2023 10:24:47 09/26/19 24 Allergy Immunotherapy Injections completed BLANCA MEEKS RN [address], [place], [address], [place] [facility] 09/26/2023 14:45:33 09/19/19 24 Allergy Immunotherapy Injections completed BERNADETTE DEAN, RMA [address], [place], [address], [place] [facility] 09/19/2023 12:07:44 09/12/19 24 Allergy Immunotherapy Injections completed BERNADETTE DEAN RMA [address], [place], [address], [place] [facility] 09/12/2023 12:55:19 09/05/19 24 Allergy Immunotherapy Injections completed BERNADETTE DEAN RMA [address], [place], [address], [place] [facility] 09/05/2023 11:15:09 08/22/19 24 Allergy Immunotherapy Injections completed BERNADETTE DEAN RMA [address], [place], [address], [place] [facility] 08/22/2023 12:12:17 08/15/19 24 Allergy Immunotherapy Injections completed RAFY HONEYCUTT Angelina [address], [place], [address], [place] [facility] 08/15/2023 09:54:41 08/08/19 24 Allergy Immunotherapy Injections completed BLANCA MEEKS RN [address], [place], [address], [place] [facility] 08/08/2023 11:08:44 08/01/19 24 Allergy Immunotherapy Injections completed BERNADETTE DEAN, RMA [address], [place], [address], [place] [facility] 08/01/2023 10:34:54 05/30/20 24 Allergy Immunotherapy Injections completed JOSE SMITH [address] [facility],[place] [address], [place], [address], [facility] 07/25/2023 14:35:33 07/11/19 24 Allergy Immunotherapy Injections completed BLANCA MEEKS RN [address] [facility],[place] [address], [place], [address], [facility] 07/11/2023 11:25:39 Imaging Results None recorded. Procedure Notes None recorded. Medical Equipment None Reported. Medications Name Sig Start Date Stop Date Status Note LastModified by Organization Details LastModified Time cetirizin e 10 mg tablet 2020 active Medicati on ID: [id number] B rand Name: cetirizi ne Send Method: [...] mg tablet 04/11 completed Medicati on ID: [id number] D uration Value: 30 Brand Name: ondanset [...] mg tablet 2019 active Medicati on ID: [id number] D uration Value: 90 Brand Name: amlodipi [...] both nostrils 2019 active Medicati on ID: [id number] D uration Value: 30 Brand Name: fluticas [...] aerosol inhaler 05/15 completed Medicati on ID: [id number] D uration Value: 90 Brand Name: Flovent [...] Diagnosis/Indication Diagnosis SNOMED-CT Code Diagnosis ICD10 Code 19235 BERNADETTE DEAN RMA Allergy [address] [place] [address] [place] [address] 11/28/2023 10:29:29 11/28/2023 10:39:53 Perennial allergic rhinitis 922531940 J30.89 CLARA LARA MD [facility] [address] [address] 12/02/2023 08:50:33 12/02/2023 09:18:14 Allergic rhinitis 51153998 J30.89 [id number] BLANCA MEEKS RN Allergy [address] [place] [address] [place] [address] 12/02/2023 08:50:33 12/02/2023 09:18:14 Perennial allergic rhinitis 393363352 J30.89 13210 BERNADETTE DEAN A Allergy [address] [place] [address] [address] [place] [address] 12/12/2023 09:23:45 12/12/2023 11:35:20 Perennial allergic rhinitis 369381441 J30.89 [id number] RAFY HONEYCUTT [facility] Allergy [address] [place] [address] [place] [address] 12/19/2023 09:40:27 12/19/2023 10:11:35 Perennial allergic rhinitis [id number] J30.89 [id number] BLANCA MEEKS RN Allergy [address] [place] [address] [place] [address] 12/26/2023 13:32:02 12/26/2023 14:09:51 Perennial allergic rhinitis [id number] J30.89 Health Concerns Section Related Observation LastModified by Organization Detai ls LastModified Time None Recorded Concern Status LastModified by Organization Details LastModified Time None Recorded Payers Encounter Date Sequence Insurance Name Policy Number Policy Edouard Covered Member ID Edouard Member ID Guarantor Name 12/26/2023 1 [facility]CTOR[facility] TYPE I (O) [id number] Kaylee Soto [id number] Kaylee Soto OBGyhannah Episode No OBEpisode recorded.
== END 2024-02-25 11:07 | disposition home or self-care (01) ==
PROVIDERS: PCP Internal Medicine; Visit Provider Internal Medicine
DX: Z00.00 Encounter for general adult medical examination without abnormal findings (principal); E11.69 Type 2 diabetes mellitus with other specified complication; E66.9 Obesity, unspecified; E66.01 Morbid (severe) obesity due to excess calories; Z68.35 Body mass index [BMI] 35.0-35.9, adult; J45.40 Moderate persistent asthma, uncomplicated; I10 Essential (primary) hypertension; Z91.09 Other allergy status, other than to drugs and biological substances; G43.119 Migraine with aura, intractable, without status migrainosus; Z23 Encounter for immunization

== ENCOUNTER → 2024-02-25 10:30 | Outpatient (BNVA) | payer OTHER, SELFPAY | PROVIDERS: PCP Internal Medicine; Visit Provider Internal Medicine | DX: Z00.01 Encounter for general adult medical examination with abnormal findings (principal); Z23 Encounter for immunization; E11.69 Type 2 diabetes mellitus with other specified complication; E66.01 Morbid (severe) obesity due to excess calories; Z68.35 Body mass index [BMI] 35.0-35.9, adult; J45.40 Moderate persistent asthma, uncomplicated; I10 Essential (primary) hypertension; G43.119 Migraine with aura, intractable, without status migrainosus; Z91.09 Other allergy status, other than to drugs and biological substances | CPT/HCPCS: 83036; 90471; 90656; 96127 ==

== ENCOUNTER 2024-05-20 08:46 | Outpatient (REF) | payer OTHER, SELFPAY ==
[2024-05-20 10:12] LABS: MANUAL DIFF FLAG NO
[2024-05-20 10:33] LABS: Basophils Percent Auto 0.6 % (0-2); Eosinophils Absolute Auto 0.2 X10*3/uL (0.0-0.4); Eosinophils Percent Auto 2.4 % (0-4); Hematocrit 37.9 % (37.0-47.0); Hemoglobin 12.7 g/dl (12.0-16.0); Imm Gran Abs Auto 0.01 X10*3/uL (0.00-0.03); Imm Gran Pct Auto 0.1 % (0.0-0.4); Lymphocytes Absolute Auto 2.1 X10*3/uL (1.2-4.9); Lymphocytes Percent Auto 30.3 % (20-40); Mean Corpuscular HGB Conc 33.5 g/dl (31.0-35.0); Mean Corpuscular Hemoglobin 31.8 pg (27.0-33.0); Mean Platelet Volume 9.3 fL (9.4-12.3); Monocytes Absolute Auto 0.6 X10*3/uL (0.1-1.2); Monocytes Percent Auto 9.2 % (2-11); Neutrophils Percent Auto 57.4 % (45-73); Platelet Count 373 X10*3/uL (160-400); Red Blood Count 3.99 X10*6/uL (4.20-5.50); Red Cell Distribution Width 11.8 % (11.0-16.0); White Blood Count 6.9 X10*3/uL (4.8-10.8)
[2024-05-20 10:45] LABS: Alanine Aminotransferase 36 U/L (0-31); Albumin Level 4.1 g/dL (3.5-5.0); Alkaline Phosphatase 66 U/L (39-117); Anion Gap 10 (12-20); Aspartate Amino Transferase 28 U/L (5-31); Bilirubin Total 0.7 mg/dL (0.0-1.0); Blood Urea Nitrogen 10 mg/dL (9-16); Carbon Dioxide 26 mmol/L (22-29); Chloride 102 mmol/L (96-108); Cholesterol 160 mg/dL (<200); Estimated Glomerular Filt Rate > 60; Glucose Fasting 135 mg/dL (60-99); HDL Cholesterol 64 mg/dL (>40); LDL Cholesterol Calculated 71 mg/dL (<100); Potassium 3.9 mmol/L (3.3-5.1); Sodium 134 mmol/L (135-145); Total Protein 7.2 g/dL (6.5-8.0); Triglycerides 128 mg/dL (<150)
[2024-05-20 11:04] LABS: Estimated Average Glucose 134 mg/dL; Hemoglobin A1c % 6.3 % (<6.0); Total Hemoglobin (HGBA1C) 3431.6954 umol/L
[2024-05-20 11:32] LABS: Creatinine Urine 139.07 mg/dL; Microalbum/Creatinine Ratio Ur 4.3 ug/mg cr (<30)
== END 2024-05-20 08:47 | disposition home or self-care (01) ==
LOC: HO.HMGCLDS 08:46
PROVIDERS: PCP Internal Medicine; Visit Provider Internal Medicine
DX: Z00.01 Encounter for general adult medical examination with abnormal findings (principal); E11.69 Type 2 diabetes mellitus with other specified complication; E66.01 Morbid (severe) obesity due to excess calories; J45.40 Moderate persistent asthma, uncomplicated; I10 Essential (primary) hypertension; Z91.09 Other allergy status, other than to drugs and biological substances; G43.119 Migraine with aura, intractable, without status migrainosus; Z68.35 Body mass index [BMI] 35.0-35.9, adult
CPT/HCPCS: 36415; 80053; 80061; 82043; 82570; 83036; 85025

== ENCOUNTER 2024-05-27 14:47 | Outpatient (AMB) | payer OTHER, SELFPAY ==
[2024-05-27 14:49] VITALS: BP 122/80; PULSE 87; O2SAT 97; BMI 35.0
--- NOTE | 2024-05-27 14:49 | A.OFFPC_ITS ---
Vital Signs 05/27/24 14:49 Height 5 ft 4 in Weight 204 lb BMI 35.0 BP 122/80 Blood Pressure Location Rt brachial Position Sitting Pulse 87 Pulse Source Pulse Oximeter Pulse Oximetry (%) 97 Oxygen Delivery Method Room Air Intake Visit Reasons: 3 months f/up Allergies losartan [LOSARTAN] Allergy (Unknown, Verified 05/27/24 14:49) COUGH oxycodone Allergy (Unknown, Verified 05/27/24 14:49) Unknown acetaminophen [From VICODIN] Adverse Reaction (Unknown, Verified 05/27/24 14:49) NAUSEA hydrocodone [From VICODIN] Adverse Reaction (Unknown, Verified 05/27/24 14:49) NAUSEA lisinopril Adverse Reaction (Unknown, Verified 05/27/24 14:49) cough metoprolol Adverse Reaction (Unknown, Verified 05/27/24 14:49) dizziness/nausea Medication List - Last Reconciled 05/27/24 by Johanny Garcia MD albuterol sulfate 2.5 mg inhalation Q6H PRN albuterol sulfate 90 mcg/actuation 2 inhalations inhalation QID PRN amlodipine 5 mg PO DAILY 90 days ascorbic acid (vitamin C) 1,000 mg PO DAILY cholecalciferol (vitamin D3) 100 mcg PO DAILY epinephrine 1 IM ONCE PRN loratadine (Claritin) 10 mg PO DAILY 90 days metformin 850 mg PO DAILY montelukast (Singulair) 10 mg PO DAILY naratriptan 2.5 mg PO DAILY PRN Pulmicort Flexhaler 90 mcg/actuation (budesonide) 1 inh inhalation BID NS spironolacton-hydrochlorothiaz 25-25 mg 1 tab PO DAILY Tobacco use date assessed: 05/27/24 Dental Screening Dental Screen Date: 05/27/24 Did you have a dental visit in the last 12 months?: Yes Did you have a dental problem in the last 6 months where you did not have access to dental care?: No Was dental information given to patient?: Patient has dentist HPI 3 months f/up HPI Details History Patient is a 38-year-old female came in today for her regular 4 month follow-up appointment Ferritin level high, patient has already seen Hematology, she is hemochromatosis gene negative We will continue to monitor Allergies: patient has seen Dr. Richards, for allergy injections Allergies are stable patient is on Flonase and Claritin LFTs are stable ALT has improved from before Diabetes: Patient is on metformin 850 mg hemoglobin A1c is controlled Medication list reviewed Blood pressure is stable patient is on She is also taking spironolactone hydrochlorothiazide 25-25 mg. Asthma: Breathing is stable, She is also on Qvar inhaler for asthma along with montelukast and Claritin Migraine last stable patient is on naratriptan as needed Patient is still working on her weight her BMI is elevated Problem List - Essential Hypertension - Allergic Rhinitis - Asthma - Type 2 Diabetes Mellitus - Migraine - obesity Patient Instructions - Continue current medication regimen as discussed. - Monitor allergy and asthma symptoms, u sing inhalers as prescribed. - Attend dental appointments as schedule d for broken teeth. - [facility] ication refills and inform the pharmacy of insurance changes. - Schedule next follow-up appointment in four months. - Continue regular blood tests as needed to monitor ongoing conditions. Review of Systems - General: No fever no chills - Neurological: No headaches no dizziness - Ear nose throat: No sore throat no hearing difficulty no ear pain - Cardiovascular: No syncope, no chest pain, no palpitations - Gastrointestinal: No nausea vomiting or diarrhea - Endocrine: No polyuria polydipsia no heat intolerance - Genitourinary: No dysuria , no blood in urine Physical Exam General: No acute distress HEENT: No acute findings Neck: Supple Respiratory system: Able to talk in full sentences, no audible wheeze Cardiovascular: S1-S2 regular in rate and rhythm Gastrointestinal: No pain Extremities: No swelling of ankles CLINICAL NURSING COORDINATOR: Alert awake oriented x3 motor sensory intact Skin: Normal turgor [facility] Medical History Obesity (BMI 30.0-34.9) ALESIA (obstructive sleep apnea) Allergic rhinitis LFT elevation Elevated ferritin Asthma Migraine headache Diabetes 1.5, managed as type 2 Environmental allergies Hypertension, essential Surgical History History of laparoscopic cholecystectomy Family History Father Unknown family medical history Mother Unknown family medical history Brother No problems noted. Social History Housing: House Alcohol intake: never Patient Tobacco Use Status: Never used Tobacco e-Cigarette/Vaping Use: Never Used Second Hand Smoke Exposure: No service: No Current occupational status: employed Cognitive needs: No Hearing needs: No Vision needs: No Questionnaire PHQ-9 Over the last 2 weeks, how often have you been bothered by any of the following problems? 1. Little interest or pleasure in doing things: not at all 2. Feeling down, depressed, or hopeless: not at all 3. Trouble falling or staying asleep, or sleeping too much: not at all 4. Feeling tired or having little energy: not at all 5. Poor appetite or overeating: not at all 6. Feeling bad about yourself - or that you are a failure or have let yourself or your family down: not at all 7. Trouble concentrating on things, such as reading the newspaper or watching television: not at all 8. Moving or speaking so slowly that other people could have noticed. Or the opposite - being so fidgety or restless that you have been moving around a lot more than usual: not at all 9. Thoughts that you would be better off or of hurting yourself in some way: not at all Total score: 0 Depression Screening Interpretation: Negative Depression Screening Done: Yes 55762 - PHQ-9 Billing: Yes Source: Developed by Drs. Aadm Kidd, Sherrie Lantigua, Grayson Wiseman and colleagues, with an educational gene from [employer]. Thrive Questionnaire Date Thrive assessed: 05/27/24 I am a: Patient What is your living situation today?: I have a steady place to live Within the past 12 months, did the food you bought not last and you didn't have the money to get more?: Never true Within the past 12 months, did you worry whether your food would run out before you got money to buy more?: Never true Do you have trouble paying for medicines?: No Do you have trouble getting transportation to medical appointments?: No Do you have trouble paying your heating and electricity bill?: No Do you have trouble taking care of your child, family member or friend?: No Do you have trouble with day-to-day activities such as bathing, preparing meals, shopping, managing finances, etc.?: No Are you currently unemployed and looking for a job?: No Are you interested in more education?: No Please select the resources that you would like help with: None Currently or been in a relationship where the following occur: No concerns reported THRIVE Score: 0 AUDIT C Alcohol Use Questionnaire (AUDIT-C) 1. How often do you have a drink containing alcohol?: Never 3. How often do you have six or more drinks on one occasion?: Never Total Score: 0 Score Reviewed/Action Taken: Yes TIM-7 AMB Questionnaire TIM-7 Date TIM - 7 assessed: 05/27/24 Feeling nervous, anxious, or on edge: 0 = Not at all Not being able to stop or control worryin = Not at all Worrying too much about different things: 0 = Not at all Trouble relaxin = Not at all Being so restless that it is hard to sit still: 0 = Not at all Becoming easily annoyed or irritable: 0 = Not at all Feeling afraid as if something awful might happen: 0 = Not at all Total TIM-7 score (0-4 normal; 5-9 mild; 10-14 moderate; 15-21 severe): 0 Source: Developed by Drs. Adam Kidd, Sherrie Lantigua, Grayson Wiseman and colleagues, with an educational gene from [employer]. TIM-7 Assessment Billing TIM-7 Assessment Tool: TIM-7 Assessment 45180 Physical exam (Primary Care) Vital Signs: Last Vital Signs Pulse 87 05/27/24 14:49 BP 122/80 05/27/24 14:49 Pulse Ox 97 05/27/24 14:49 Oxygen Delivery Method Room Air 05/27/24 14:49 BMI result Body Mass Index 35.0 Tobacco/Smoking Status: Tobacco use Status Tobacco use date assessed 05/27/24 05/27/24 14:52 Patient Tobacco Use Status Never used Tobacco 05/27/24 14:52 e-Cigarette/Vaping Use Never Used 05/27/24 14:52 PHQ-9: PHQ-9 Score PHQ-9: Total score 0 05/27/24 14:52 Depression Screening Interpretation: Negative Thrive Assessment: Date of Thrive Assessment Date Thrive assessed 05/27/24 05/27/24 14:52 Currently or been in a relationship where the following occur: No concerns reported Coding Level of Care Code Tele Est Pt Level 4 (71377) Complex EM visit Add On G2211 Diagnoses Hypertension, essential I10 Environmental allergies Z91.09 Diabetes 1.5, managed as type 2 E13.9 Elevated ferritin R79.89 LFT elevation R79.89 Moderate persistent asthma without complication J45.40 Asthma complication type: uncomplicated Class 2 severe obesity due to excess calories with serious comorbidity and body mass index (BMI) of 35.0 to 35.9 in adult E66.01; Z68.35 Obesity classification: adult class 2 (BMI 35 - 39.9) Serious obesity comorbidity presence: with serious comorbidity Body mass index: BMI 35.0-35.9 Additional Codes TIM-7 Assessment Billing - TIM-7 Assessment Tool: TIM-7 Assessment 59312 ([id number]) PHQ-9 - 15523 - PHQ-9 Billing: Yes ([id number]) Assessment & Plan Assessment & Plan (1) Hypertension, essential: Code(s): I10 - Essential (primary) hypertension Category: Medical (2) Environmental allergies: Code(s): Z91.09 - Other allergy status, other than to drugs and biological substances Category: Medical (3) Diabetes 1.5, managed as type 2: Code(s): E13.9 - Other specified diabetes mellitus without complications Category: Medical (4) Elevated ferritin: Code(s): R79.89 - Other specified abnormal findings of blood chemistry Category: Medical (5) LFT elevation: Code(s): R79.89 - Other specified abnormal findings of blood chemistry Category: Medical (6) Asthma, moderate persistent: Code(s): J45.40 - Moderate persistent asthma, uncomplicated Category: Medical Qualifiers: Asthma complication type: uncomplicated Qualified Code(s): J45.40 - Moderate persistent asthma, uncomplicated (7) Obesity due to excess calories: Code(s): E66.09 - Other obesity due to excess calories Category: Medical Qualifiers: Obesity classification: adult class 2 (BMI 35 - 39.9) Serious obesity comorbidity presence: with serious comorbidity Body mass index: BMI 35.0-35.9 Qualified Code(s): E66.01 - Morbid (severe) obesity due to excess calories; Z68.35 - Body mass index [BMI] 35.0-35.9, adult Plan History Patient is a 38-year-old female came in today for her regular 4 month follow-up appointment Ferritin level high, patient has already seen Hematology, she is hemochromatosis gene negative We will continue to monitor Allergies: patient has seen Dr. Richards, for allergy injections Allergies are stable patient is on Flonase and Claritin LFTs are stable ALT has improved from before Diabetes: Patient is on metformin 850 mg hemoglobin A1c is controlled Medication list reviewed Blood pressure is stable patient is on She is also taking spironolactone hydrochlorothiazide 25-25 mg. Asthma: Breathing is stable, She is also on Qvar inhaler for asthma along with montelukast and Claritin Migraine last stable patient is on naratriptan as needed Patient is still working on her weight her BMI is elevated Problem List - Essential Hypertension - Allergic Rhinitis - Asthma - Type 2 Diabetes Mellitus - Migraine - obesity Patient Instructions - Continue current medication regimen as discussed. - Monitor allergy and asthma symptoms, using inhalers as prescribed. - Attend dental appointments as scheduled for broken teeth. - Follow [facility] requirements for medication refills and inform the pharmacy of insurance changes. - Schedule next follow-up appointment in four months. - Continue regular blood tests as needed to monitor ongoing conditions. Orders: Orders Hemoglobin A1c 3 Months E13.9 - Other specified diabetes mellitus without complications, E66.01 - Morbid (severe) obesity due to excess calories, I10 - Essential (primary) hypertension, J45.40 - Moderate persistent asthma, uncomplicated, R79.89 - Other specified abnormal findings of blood chemistry, Z68.35 - Body mass index [BMI] 35.0-35.9, adult, Z91.09 - Other allergy status, other than to drugs and biological substances Complete Blood Count Auto Diff 3 Months E13.9 - Other specified diabetes mellitus without complications, E66.01 - Morbid (severe) obesity due to excess calories, I10 - Essential (primary) hypertension, J45.40 - Moderate persistent asthma, uncomplicated, R79.89 - Other specified abnormal findings of blood chemistry, Z68.35 - Body mass index [BMI] 35.0-35.9, adult, Z91.09 - Other allergy status, other than to drugs and biological substances Comprehensive Met. Panel 3 Months E13.9 - Other specified diabetes mellitus without complications, E66.01 - Morbid (severe) obesity due to excess calories, I10 - Essential (primary) hypertension, J45.40 - Moderate persistent asthma, uncomplicated, R79.89 - Other specified abnormal findings of blood chemistry, Z68.35 - Body mass index [BMI] 35.0-35.9, adult, Z91.09 - Other allergy status, other than to drugs and biological substances Ferritin 3 Months E13.9 - Other specified diabetes mellitus without complications, E66.01 - Morbid (severe) obesity due to excess calories, I10 - Essential (primary) hypertension, J45.40 - Moderate persistent asthma, uncomplicated, R79.89 - Other specified abnormal findings of blood chemistry, Z68.35 - Body mass index [BMI] 35.0-35.9, adult, Z91.09 - Other allergy status, other than to drugs and biological substances Medications: Refilled Pulmicort Flexhaler 90 mcg/actuation (budesonide) 1 inh inhalation BID 1 ea 6RF NS Discontinued amlodipine Discontinued Reason: Doctor's Order 5 mg PO DAILY 90 days 90 tabs 0RF
--- OUTSIDE RECORDS SUMMARY | 2024-05-27 17:23 | XMS_ITS | Continuity of Care Document ---
Author Organization [place] - [facility], Allergy Address [address] [address] Care Team Providers Care Collator Operator Name Role Phone JAI PINA Primary Care Provider Assessment Encounter Date Assessment Date Assessment LastModified by Organization Details LastModified Time 05/27/2024 05/27/2024 Visit With: JOSE Lindsey Use of Antihistamine s: Yes If yes: Vial Test Change in medications: No If yes ?? Increase in asthma symptoms If yes, inhaler use: Reaction to last injections: No If yes: ?? Allergy Symptoms: Other: ?? Missed: Dose Aware of Vial Test Notes:?? [email or web address] Not available 05/27/2024 09:52:59 Plan of Treatment Reminders Order Date Submit Date Provider Last Modified By Organization Details Last Modified Time Details Appointments Allergy Shot 2024 09:40A M [facility] Not available Not available Not available Establis hed- Allergy f-up 6mon 2024 02:15P M BERNARDO CARBALLO PA-C Not available Not [...] Type 2 diabetes mellitus without complicat ion 568094142 Active 2021 Type 2 diabetes mellitus without complicat ions; Note: Date Diagnosed : 09/27/2021 9:02 AM (E11.9) Not Available [facility] 08/02/202 4 02:39:44 Bleeding from nose 389517554 Active 2022 Epistaxis ; Note: Date Diagnosed : 04/11/2022 8:55 AM (R04.0) Not Available [facility] 02:39:40 Allergic rhinitis 89790370 Active 2023 Allergic rhinitis: Due to other [...] 11/22/2021 9:31 AM (477.8) Note Not Available [facility] 4 01:04:43 Nasal congestio n 92511297 Active 2019 Nasal congestio n; Note: Date Diagnosed : 04/29/2019 11:19 AM (R09.81) Not Available [facility] 4 02:39:41 Essential hypertens ion 69732815 Active 2019 Essential (primary) hypertens ion; Note: Date Diagnosed : 04/29/2019 11:20 AM (I10) Not Available [facility] 4 02:39:50 Migraine without aura, not refractor y 251595660 Active 2019 Migraine without aura, not intractab le, without status migrainos us; Note: Date Diagnosed : 04/29/2019 11:19 AM (G43.009) Not Available [facility] 4 02:39:40 Chronic rhinitis 26901352 Active 2019 Chronic rhinitis; Note: Date Diagnosed : 04/29/2019 11:19 AM (J31.0) Not Available [facility] 4 02:39:44 Headache 31494318 Active 2019 Facial pain NOS; Note: Date Diagnosed : 04/29/2019 11:19 AM (R51) Not Available [facility] 4 02:39:42 Snoring 01832949 Active 2020 Snoring; Note: Date Diagnosed : 1 8:53 AM (R06.83) Not Available [facility] 4 02:39:46 History of SARS-CoV- 2 [id number] 8143651 Active 2021 Personal history of COVID-19; Note: Date Diagnosed : 2 3:13 PM (Z86.16) Not Available [facility] 4 02:39:49 Uncomplic ated mild persisten t asthma 846436316 Active 2019 Mild persisten t asthma NOS; Note: Date Diagnosed : 02/01/2020 10:37 AM (J45.30) Not Available [facility] 4 02:39:40 Perennial allergic rhinitis 941667003 Active 2023 BLANCA MEEKS RN [address], [place], [address] , [place] [facility] 11:24:20 Problem Notes None recorded. Procedures Surgical History Date Name Laterality Status Provider Name and Address Organization Details Recorded Time 05/28/19 25 Allergy Immunotherapy Injections completed BERNADETTE DEAN, RMA [address], [place], [address], [place] [facility] 05/27/2024 09:52:54 05/21/19 25 Allergy Immunotherapy Injections completed BERNADETTE DEAN, RMA [address], [place], [address], [place] [facility] 05/20/2024 10:27:28 05/14/19 25 Allergy Immunotherapy Injections completed BLANCA MEEKS RN [address] [place] [address], [address], [place] [facility] 05/13/2024 12:11:39 04/22/19 25 Allergy Immunotherapy Injections completed RAFY HONEYCUTT RMA [address] [facility], [place], [address], [place] [facility] 04/22/2024 10:54:53 04/15/19 25 Allergy Immunotherapy Injections completed BERNADETTE DEAN, RMA [address], [place], [address], [place] [facility] 04/15/2024 10:00:13 04/08/19 25 Allergy Immunotherapy Injections completed RAFY HONEYCUTT RMA [address], [place], [address], [place] [facility] 04/08/2024 09:47:50 04/01/19 25 Allergy Immunotherapy Injections completed BERNADETTE DEAN, RMA [address], [place], [address], [place] [facility] 04/01/2024 09:34:46 03/11/19 25 Allergy Immunotherapy Injections completed BERNADETTE DEAN, RMA [address], [place], [address], [place] [facility] 03/11/2024 16:52:38 03/04/19 25 Allergy Immunotherapy Injections completed JOSE SMITH [address] [place] [address], [address], [place] [facility] 03/04/2024 12:13:09 02/24/20 24 Allergy Immunotherapy Injections completed JOSE SMITH [address], [place], [address], [place] [facility] 02/24/2024 12:05:12 02/17/20 24 Allergy Immunotherapy Injections completed BLANCA MEEKS RN [address] [facility] [place] [address], [address], [place] [facility] 02/17/2024 13:33:14 02/06/20 24 Allergy Immunotherapy Injections completed BLANCA MEEKS RN [address] [facility] [address] [place] [address], [address], [place] [facility] 02/06/2024 10:53:39 01/28/20 24 Allergy Immunotherapy Injections completed BLANCA MEEKS RN [address] [facility],[address] [place] [address], [address], [place] [facility] 01/28/2024 12:07:01 01/21/20 24 Allergy Immunotherapy Injections completed BLANCA MEEKS RN [address] [place] [address], [address], [place] [facility] 01/21/2024 13:20:03 01/02/20 24 Allergy Immunotherapy Injections completed BLANCA MEEKS RN [address] [place] [address], [address], [place] [facility] 01/02/2024 13:31:09 12/26/19 24 Allergy Immunotherapy Injections completed BLANCA MEEKS RN [address] [place] [address], [address], [place] [facility] 12/26/2023 14:09:15 12/19/19 24 Allergy Immunotherapy Injections completed JOSE SMITH [address], [place], [address], [place] [facility] 12/19/2023 10:09:52 12/12/19 24 Allergy Immunotherapy Injections completed BERNADETTE DEAN RMA [address], [place], [address], [place] [facility] 12/12/2023 11:34:33 12/02/19 24 Allergy Immunotherapy Injections completed BLANCA MEEKS RN [address], [place], [address], [place] [facility] 12/02/2023 09:39:54 11/28/19 24 Allergy Immunotherapy Injections completed BERNADETTE DEAN RMA [address], [place], [address], [place] [facility] 11/28/2023 10:41:02 11/21/19 24 Allergy Immunotherapy Injections completed BERNADETTE DEAN, RMA [address] [place] [address], [address], [place] [facility] 11/21/2023 10:30:36 11/14/19 24 Allergy Immunotherapy Injections completed BERNADETTE DEAN RMA [address] [facility], [place], [address], [place] [facility] 11/14/2023 10:59:06 10/31/19 24 Allergy Immunotherapy Injections completed JOSE SMITH [address], [place], [address], [place] [facility] 10/31/2023 12:08:09 10/24/19 24 Allergy Immunotherapy Injections completed BLANCA MEEKS RN [address], [place], [address], [place] [facility] 10/24/2023 10:43:59 10/17/19 24 Allergy Immunotherapy Injections completed BERNADETTE DEAN RMA [address], [place], [address], [place] [facility] 10/17/2023 11:52:31 10/09/19 24 Allergy Immunotherapy Injections completed JOSE SMITH [address], [place], [address], [place] [facility] 10/09/2023 10:01:24 10/03/19 24 Allergy Immunotherapy Injections completed BLANCA MEEKS RN [address], [place], [address], [place] [facility] 10/03/2023 10:24:47 09/26/19 24 Allergy Immunotherapy Injections completed BLANCA MEEKS RN [address] [facility] [address], [place], [address], [place] [facility] 09/26/2023 14:45:33 09/19/19 24 Allergy Immunotherapy Injections completed BERNADETTE DEAN RMA [address] [facility],[address] [place] [address], [address], [place] [facility] 09/19/2023 12:07:44 09/12/19 24 Allergy Immunotherapy Injections completed BERNADETTE DEAN RMA [address] [facility],[address] [place] [address], [address], [place] [facility] 09/12/2023 12:55:19 09/05/19 24 Allergy Immunotherapy Injections completed BERNADETTE DEAN RMA [address] [place] [address], [address], [place] [facility] 09/05/2023 11:15:09 08/22/19 24 Allergy Immunotherapy Injections completed BERNADETTE DEAN RMA [address] [place] [address], [address], [place] [facility] 08/22/2023 12:12:17 08/15/19 24 Allergy Immunotherapy Injections completed JOSE SMITH [address], [place], [address], [place] [facility] 08/15/2023 09:54:41 08/08/19 24 Allergy Immunotherapy Injections completed BLANCA MEEKS RN [address], [place], [address], [place] [facility] 08/08/2023 11:08:44 08/01/19 24 Allergy Immunotherapy Injections completed BERNADETTE DEAN RMA [address], [address], [place] [facility] 08/01/2023 10:34:54 07/25/19 24 Allergy Immunotherapy Injections completed JOSE SMITH 100 [facility],[address], [address], [facility] - [facility] 07/25/2023 14:35:33 07/11/19 24 Allergy Immunotherapy Injections completed BLANCA MEEKS RN [address] [facility],[address], [address], [facility] - [facility] 07/11/2023 11:25:39 Imaging Results None recorded. Procedure Notes None recorded. Medical Equipment None Reported. Medications Name Sig Start Date Stop Date Status Note LastModified by Organization Details LastModified Time cetirizin e 10 mg tablet 2020 active Medicati on ID: [id number] B rand Name: cetirizi ne Send Method: [...] mg tablet 04/11 completed Medicati on ID: [id number] D uration Value: 30 Brand Name: ondanset [...] TAKE 1 TABLET BY MOUTH EVERY DAY 03/04 completed Not Available Not Available Not Available sulfameth oxazole 800 mg-trimet hoprim 160 mg tablet TAKE 1 TABLET BY MOUTH TWICE A DAY FOR 5 DAYS 12/01 completed Not Available Not Available Not Available meclizine 25 mg tablet TAKE 1 TABLET (25 MG) BY MOUTH 2 TIMES A DAY NEEDED FOR DIZZINES S FOR 30 DAYS 12/01 completed Not Available Not Available Not Available amlodipin e 10 mg tablet 03/04 completed Medicati on ID: [id number] D uration Value: 90 Brand Name: amlodipi [...] both nostrils 2019 active Medicati on ID: [id number] D uration Value: 30 Brand Name: fluticas [...] aerosol inhaler 05/15 completed Medicati on ID: [id number] D uration Value: 90 Brand Name: Flovent [...] Diagnosis/Indication Diagnosis SNOMED-CT Code Diagnosis ICD10 Code Diagnosis Note [id number] BLANCA MEEKS RN Allergy [address] [facility], [address] [place] [address] 05/13/2024 09:35:34 05/13/2024 12:12:09 Perennial allergic rhinitis [id number] J30.89 [id number] BERNADETTE KIERRA, [facility] Allergy [address] [facility],[place] [address] [place] [place] [address] 05/20/2024 10:02:04 05/20/2024 10:28:11 Perennial allergic rhinitis [id number] J30.89 [id number] BERNADETTE LOZADA, A Allergy [address] [facility],[place] [address] [place] [address] 05/27/2024 09:44:51 05/27/2024 09:53:49 Perennial allergic rhinitis [id number] J30.89 Health Concerns Section Related Observation LastModified by Organization Detai ls LastModified Time None Recorded Concern Status LastModified by Organization Details LastModified Time None Recorded Payers Encounter Date Sequence Insurance Name Policy Number Policy Edouard Covered Member ID Edouard Member ID Guarantor Name 05/27/[address] [facility] HEALTH [facility]AN (MEDICAID HMO) WILMER Soto [id number] Kaylee Soto OBGyn Episode No OBEpisode recorded.
--- OUTSIDE RECORDS SUMMARY | 2024-05-27 17:24 | XMS_ITS | Data Portability ---
Author Organization [place] - [facility], Allergy Address [address] [place] [id number] Care Team Providers Care Biomedical Equipment Technician Name Role Phone PINA VERGARA Primary Care Provider Assessment Encounter Date Assessment Date Assessment LastModified by Organization Details LastModified Time 04/15/2024 04/15/2024 Visit With: JOSE Lindsey Use of Antihistamine s: Yes If yes: Vial Test Change in medications: No If yes ?? Increase in asthma symptoms If yes, inhaler use: Reaction to last injections: No If yes: ?? Allergy Symptoms: Other: ?? Missed: Dose Aware of Vial Test Notes:?? [email or web address] Not available 04/15/2024 10:00:24 04/22/2024 04/22/2024 Visit With: JOSE Lindsey Use of Antihistamine s: Yes If yes: Vial Test Change in medications: No If yes ?? Increase in asthma symptoms If yes, inhaler use: Reaction to last injections: No If yes: ?? Allergy Symptoms: Other: ?? Missed: Dose Aware of Vial Test Notes:?? [email or web address] Not available 04/22/2024 10:55:13 05/13/2024 05/13/2024 Visit With: Blanca Meeks RN Use of Antihistamine s: Yes If yes: Vial Test Change in medications: No If yes ?? Increase in asthma symptoms No If yes, inhaler use: Reaction to last injections: No If yes: ?? Allergy Symptoms: Other: ?? Missed: 2 weeks Dose Decreased Aware of Vial Test Yes Notes:?? [email or web address] Not available 05/13/2024 12:11:51 05/20/2024 05/20/2024 Visit With: Bernadette LozadaraeJOSE Use of Antihistamine s: No If yes: Vial Test Yes Change in medications: No If yes ?? Increase in asthma symptoms If yes, inhaler use: Reaction to last injections: No If yes: ?? Allergy Symptoms: Other: ?? Missed: Dose Aware of Vial Test Notes:?? [email or web address] Not available 05/20/2024 10:27:39 05/27/2024 05/27/2024 Visit With: Bernadette CortésDAVIDA moralesAngelina Use of Antihistamine s: Yes If yes: Vial Test Change in medications: No If yes ?? Increase in asthma symptoms If yes, inhaler use: Reaction to last injections: No If yes: ?? Allergy Symptoms: Other: ?? Missed: Dose Aware of Vial Test Notes:?? [email or web address] Not available 05/27/2024 09:52:59 Plan of Treatment Reminders Order Date Submit Date Provider Last Modified By Organization Details Last Modified Time Details Appointments Allergy Shot 2024 09:40A M [facility] Not available Not available Not available Analisa hed- Allergy f-up 6mon 2024 02:15P M [...] Type 2 diabetes mellitus without complicat ion 375246507 Active 2021 Type 2 diabetes mellitus without complicat ions; Note: Date Diagnosed : 09/27/2021 9:02 AM (E11.9) Not Available [facility] 4 02:39:44 Bleeding from nose 404054589 Active 2022 Epistaxis ; Note: Date Diagnosed : 04/11/2022 8:55 AM (R04.0) Not Available [facility] 4 02:39:40 Allergic rhinitis 24016773 Active 2023 Allergic rhinitis: Due to other [...] to other allergen; Note: Date Diagnosed : 9:08 AM (477.8) Note: Date Diagnosed : 2 9:08 AM (477.8) ; Start Date : 2 Allergi c rhinitis: Due to other allergen; Note: Date Diagnosed : 11:19 AM (477.8) Note: Date Diagnosed : 2 11:19 AM (477.8) ; Start Date : 2 Allergi c rhinitis: Due to other allergen; Note: Date Diagnosed : 9:13 AM (477.8) Note: Date Diagnosed : 2 9:13 AM (477.8) ; Start Date : 2 Allergi c rhinitis: Due to other allergen; Note: Date Diagnosed : 2 9:38 AM (477.8) Note: Date Diagnosed : 2 9:38 AM (477.8) ; Start Date : 2 Allergi c rhinitis: Due to other allergen; Note: Date Diagnosed : 11/22/2021 9:31 AM (477.8) Note Not Available [facility] 4 01:04:43 Nasal congestio n 06643302 Active 2019 Nasal congestio n; Note: Date Diagnosed : 04/29/2019 11:19 AM (R09.81) Not Available [facility] 4 02:39:41 Essential hypertens ion 88414838 Active 2019 Essential (primary) hypertens ion; Note: Date Diagnosed : 04/29/2019 11:20 AM (I10) Not Available [facility] 4 02:39:50 Migraine without aura, not refractor y 749769194 Active 2019 Migraine without aura, not intractab le, without status migrainos us; Note: Date Diagnosed : 04/29/2019 11:19 AM (G43.009) Not Available [facility] 4 02:39:40 Chronic rhinitis 38827828 Active 2019 Chronic rhinitis; Note: Date Diagnosed : 04/29/2019 11:19 AM (J31.0) Not Available [facility] 4 02:39:44 Headache 87956242 Active 2019 Facial pain NOS; Note: Date Diagnosed : 04/29/2019 11:19 AM (R51) Not Available [facility] 4 02:39:42 Snoring 23343729 Active 2020 Snoring; Note: Date Diagnosed : 1 8:53 AM (R06.83) Not Available [facility] 4 02:39:46 History of SARS-CoV- 2 [id number] 8431890 Active 2021 Personal history of COVID-19; Note: Date Diagnosed : 2 3:13 PM (Z86.16) Not Available [facility] 4 02:39:49 Uncomplic ated mild persisten t asthma 706098313 Active 2019 Mild persisten t asthma NOS; Note: Date Diagnosed : 02/01/2020 10:37 AM (J45.30) Not Available [facility] 4 02:39:40 Perennial allergic rhinitis 760150211 Active 2023 BLANCA MEEKS RN 100 [address] [place], [address] , [facility] - [facility] 4 11:24:20 Problem Notes None recorded. Procedures Surgical History Date Name Laterality Status Provider Name and Address Organization Details Recorded Time 05/28/19 25 Allergy Immunotherapy Injections completed BERNADETTE KORZEC, RMA [address], [place], [address], [place] [facility] 05/27/2024 09:52:54 05/21/19 25 Allergy Immunotherapy Injections completed BERNADETTE LOZADAC, RMA [address], [place], [address], [place] [facility] 05/20/2024 10:27:28 05/14/19 25 Allergy Immunotherapy Injections completed BLANCA MEEKS RN [address], [place], [address], [place] [facility] 05/13/2024 12:11:39 04/22/19 25 Allergy Immunotherapy Injections completed JOSE SMITH [address], [place], [address], [place] [facility] 04/22/2024 10:54:53 04/15/19 25 Allergy Immunotherapy Injections completed BERNADETTE DEAN RMA [address], [place], [address], [place] [facility] 04/15/2024 10:00:13 04/08/19 25 Allergy Immunotherapy Injections completed JOSE SMITH [address], [place], [address], [place] [facility] 04/08/2024 09:47:50 04/01/19 25 Allergy Immunotherapy Injections completed BERNADETTE DEAN RMA [address], [place], [address], [place] [facility] 04/01/2024 09:34:46 03/11/19 25 Allergy Immunotherapy Injections completed BERNADETTE DEAN RMA [address], [place], [address], [place] [facility] 03/11/2024 16:52:38 03/04/19 25 Allergy Immunotherapy Injections completed JOSE SMITH [address], [place], [address], [place] [facility] 03/04/2024 12:13:09 02/24/20 24 Allergy Immunotherapy Injections completed JOSE SMITH [address], [place], [address], [place] [facility] 02/24/2024 12:05:12 02/17/20 24 Allergy Immunotherapy Injections completed BLANCA MEEKS RN [address], [place], [address], [place] [facility] 02/17/2024 13:33:14 02/06/20 24 Allergy Immunotherapy Injections completed BLANCA MEEKS RN [address], [place], [address], [place] [facility] 02/06/2024 10:53:39 01/28/20 24 Allergy Immunotherapy Injections completed BLANCA MEEKS RN [address] [place] [address], [address], [place] [facility] 01/28/2024 12:07:01 01/21/20 24 Allergy Immunotherapy Injections completed BLANCA MEEKS RN 100 [facility] [place],[address] [place] [address], [address], [place] [facility] 01/21/2024 13:20:03 01/02/20 24 Allergy Immunotherapy Injections completed BLANCA MEEKS RN 100 [facility] [place],[address] [place] [address], [address], [place] [facility] 01/02/2024 13:31:09 12/26/19 24 Allergy Immunotherapy Injections completed BLANCA MEEKS RN 100 [facility],[address]UD[address] [place] [address], [address], [place] [facility] 12/26/2023 14:09:15 12/19/19 24 Allergy Immunotherapy Injections completed JOSE SMITH [address] [place] [address], [address], [place] [facility] 12/19/2023 10:09:52 12/12/19 24 Allergy Immunotherapy Injections completed JOSE LINDSEY [address], [place], [address], [place] [facility] 12/12/2023 11:34:33 12/02/19 24 Allergy Immunotherapy Injections completed BLANCA MEEKS RN [address], [place], [address], [place] [facility] 12/02/2023 09:39:54 11/28/19 24 Allergy Immunotherapy Injections completed BERNADETTE DEAN, RMA [address], [place], [address], [place] [facility] 11/28/2023 10:41:02 11/21/19 24 Allergy Immunotherapy Injections completed BERNADETTE DEAN, RMA [address], [place], [address], [place] [facility] 11/21/2023 10:30:36 11/14/19 24 Allergy Immunotherapy Injections completed BERNADETTE DEAN, RMA [address], [place], [address], [place] [facility] 11/14/2023 10:59:06 10/31/19 24 Allergy Immunotherapy Injections completed JOSE SMITH [address], [place], [address], [place] [facility] 10/31/2023 12:08:09 10/24/19 24 Allergy Immunotherapy Injections completed BLANCA MEEKS RN [address], [place], [address], [place] [facility] 10/24/2023 10:43:59 10/17/19 24 Allergy Immunotherapy Injections completed BERNADETTE DEAN RMA [address], [place], [address], [place] [facility] 10/17/2023 11:52:31 10/09/19 24 Allergy Immunotherapy Injections completed JOSE SMITH [address], [place], [address], [place] [facility] 10/09/2023 10:01:24 10/03/19 24 Allergy Immunotherapy Injections completed BLANCA MEEKS RN [address], [place], [address], [place] [facility] 10/03/2023 10:24:47 09/26/19 24 Allergy Immunotherapy Injections completed BLANCA EMEKS RN [address], [place], [address], [place] [facility] 09/26/2023 14:45:33 09/19/19 24 Allergy Immunotherapy Injections completed BERNADETTE DEAN, RMA [address], [place], [address], [place] [facility] 09/19/2023 12:07:44 09/12/19 24 Allergy Immunotherapy Injections completed BERNADETTE LOZADAC, RMA [address], [place], [address], [place] [facility] 09/12/2023 12:55:19 09/05/19 24 Allergy Immunotherapy Injections completed BERNADETTE LOZADAC, RMA [address], [place], [address], [place] [facility] 09/05/2023 11:15:09 08/22/19 24 Allergy Immunotherapy Injections completed BERNADETTE DEAN, RMA [address], [place], [address], [place] [facility] 08/22/2023 12:12:17 08/15/19 24 Allergy Immunotherapy Injections completed JOSE SMITH [address], [place], [address], [place] [facility] 08/15/2023 09:54:41 08/08/19 24 Allergy Immunotherapy Injections completed BLANCA MEEKS RN [address], [place], [address], [place] [facility] 08/08/2023 11:08:44 08/01/19 24 Allergy Immunotherapy Injections completed BERNADETTE DEAN, RMA [address], [place], [address], [place] [facility] 08/01/2023 10:34:54 07/25/19 24 Allergy Immunotherapy Injections completed JOSE SMITH [address], [place], [address], [place] [facility] 07/25/2023 14:35:33 07/11/19 24 Allergy Immunotherapy Injections completed BLANCA MEEKS, RN [address], [address], [place] [facility] 07/11/2023 11:25:39 Imaging Results None recorded. Procedure Notes None recorded. Medical Equipment None Reported. Medications Name Sig Start Date Stop Date Status Note LastModified by Organization Details LastModified Time cetirizin e 10 mg tablet 2020 active Medicati on ID: [id number] B rand Name: cetirizi ne Send Method: [...] mg tablet 04/11 completed Medicati on ID: [id number] D uration Value: 30 Brand Name: ondanset [...] mg tablet 03/04 completed Medicati on ID: [id number] D uration Value: 90 Brand Name: amlodipi [...] both nostrils 2019 active Medicati on ID: [id number] D uration Value: 30 Brand Name: fluticas [...] aerosol inhaler 05/15 completed Medicati on ID: [id number] D uration Value: 90 Brand Name: Flovent [...] SNOMED-CT Code Diagnosis ICD10 Code Diagnosis Note 514 CLARA LARA MD Allergy [address] [place] [address],[place] [address] [place] [address] 07/11/2023 10:37:53 07/12/2023 13:04:10 Perennial allergic rhinitis [id number] J30.89 2111 RAFY HONEYCUTT [facility] Allergy [address] [place] [address],[place] [address] [place] [address] 07/25/2023 14:01:24 07/25/2023 15:31:41 Perennial allergic rhinitis [id number] J30.89 3007 BERNADETTE LOZADA [facility] Allergy [address] [place] [address] [address] [place] [address] 08/01/2023 09:18:23 08/01/2023 11:42:38 Perennial allergic rhinitis [id number] J30.89 3923 BLANCA MEEKS RN Allergy [address] [place] [address] [address] [place] [address] 08/08/2023 10:16:20 08/08/2023 11:57:39 Perennial allergic rhinitis [id number] J30.89 4849 RAFY [facility]T [facility] Allergy [address] [place] [address] [address] [place] [address] 08/15/2023 09:53:10 08/15/2023 12:08:05 Perennial allergic rhinitis [id number] J30.89 5864 BERNADETTE MARIFERDEANGELO A Allergy [address] [place] [address],[place] [address] [place] [address] 08/22/2023 11:50:40 08/22/2023 13:24:56 Perennial allergic rhinitis [id number] J30.89 7467 BERNADETTE LOZADA [facility] Allergy [address] [place] [address] [address] [place] [address] 09/05/2023 11:07:09 09/05/2023 13:48:37 Perennial allergic rhinitis [id number] J30.89 8488 BERNADETTE KIERRA, RMA Allergy [address] [place] [address],[place] [address] [place] [address] 09/12/2023 11:52:07 09/12/2023 13:07:55 Perennial allergic rhinitis [id number] J30.89 9520 BERNADETTE KIERRA, A Allergy [address] [place] [address],[place] [address] [place] [address] 09/19/2023 11:49:01 09/19/2023 12:14:30 Perennial allergic rhinitis [id number] J30.89 [id number] BLANCA MEEKS RN Allergy [address] [place] [address] [address] [place] [address] 09/26/2023 13:48:24 09/26/2023 14:46:06 Perennial allergic rhinitis [id number] J30.89 [id number] BLANCA MEEKS RN Allergy [address] [place] [address] [address] [place] [address] 10/03/2023 09:23:46 10/03/2023 10:28:07 Perennial allergic rhinitis [id number] J30.89 [id number] RAFY HONE[place]T [facility] Allergy [address] [place] [address], [address] [place] [address] 10/09/2023 08:55:13 10/09/2023 10:27:59 Perennial allergic rhinitis [id number] J30.89 [id number] [facility] All[facility] [address] [place] [address],[place] [address] [place] [address] 10/17/2023 10:52:23 10/17/2023 12:18:23 Perennial allergic rhinitis [id number] J30.89 [id number] BLANCA MEEKS RN Allergy [address] [place] [address],[place] [address] [place] [address] 10/24/2023 10:12:20 10/24/2023 10:44:28 Perennial allergic rhinitis [id number] J30.89 27628 RAFY HONE[place]T [facility] Allergy [address] [place] [address],[place] [address] [place] [address] 10/31/2023 11:55:56 10/31/2023 13:59:26 Perennial allergic rhinitis [id number] J30.89 [id number] BERNADETTE LOZADA, RMA Allergy 100 [facility],[place] [address] [place] [address] 11/14/2023 10:19:55 11/14/2023 10:59:41 Perennial allergic rhinitis [id number] J30.89 [id number] BERNADETTE LOZADA, A Allergy [address] [place] [address],[place] [address] [place] [address] 11/21/2023 09:53:49 11/21/2023 10:30:59 Perennial allergic rhinitis [id number] J30.89 BERNADETTE KIERRA, RMA Allergy 100 [facility],[place] [address] [place] [address] 11/28/2023 10:29:29 11/28/2023 10:39:53 Perennial allergic rhinitis [id number] J30.89 CLARA LARA MD [facility] [place] 100 [facility] [place] [address] 12/02/2023 08:50:33 12/02/2023 09:18:14 Allergic rhinitis [id number] J30.89 [id number] BLANCA MEEKS RN Allergy [address] [place] [address] [address] [place] [address] 12/02/2023 08:50:33 12/02/2023 09:18:14 Perennial allergic rhinitis [id number] J30.89 35199 BERNADETTE KIERRA, RMA Allergy 100 [facility],[place] [address] [place] [address] 12/12/2023 09:23:45 12/12/2023 11:35:20 Perennial allergic rhinitis [id number] J30.89 48414 RAFY HONEYCUTT, A Allergy 100 [facility],[place] [address] [place] [address] 12/19/2023 09:40:27 12/19/2023 10:11:35 Perennial allergic rhinitis [id number] J30.89 [id number] BLANCA MEEKS RN Allergy [address] [place] [address],[place] [address] [place] [address] 12/26/2023 13:32:02 12/26/2023 14:09:51 Perennial allergic rhinitis [id number] J30.89 [id number] BLANCA MEEKS RN Allergy [address] [place] [address] [address] [place] [address] 01/02/2024 12:59:48 01/02/2024 13:31:55 Perennial allergic rhinitis [id number] J30.89 [id number] BLANCA MEEKS RN Allergy [address] [place] [address] [address] [place] [address] 01/21/2024 13:10:56 01/21/2024 13:20:36 Perennial allergic rhinitis [id number] J30.89 [id number] BLANCA MEEKS RN Allergy [address] [place], [place] [address]e 100 [facility] [place] [address] 01/28/2024 10:01:37 01/28/2024 12:07:33 Perennial allergic rhinitis [id number] J30.89 73879 BLANCA MEEKS RN Allergy [address] [place] [address] [address] [place] [address] 02/06/2024 09:58:03 02/06/2024 10:54:13 Perennial allergic rhinitis [id number] J30.89 [id number] BLANCA MEEKS RN Allergy [address] [place], [place] [address]e 100 [facility] [place] [address] 02/17/2024 09:46:05 02/17/2024 13:33:45 Perennial allergic rhinitis [id number] J30.89 09496 RAFY H[facility]CUTT [facility] Allergy [address] [place] [address] [address] [place] [address] 02/24/2024 10:30:20 02/24/2024 12:07:35 Perennial allergic rhinitis [id number] J30.89 [id number] RAFY HONEYCUTT [facility] Allergy [address] [place] [address] [address] [place] [address] 03/04/2024 10:59:15 03/04/2024 12:15:00 Perennial allergic rhinitis [id number] J30.89 [id number] BERNADETTE LOZADA [facility] Allergy [address],[place] [address] [place] [address] 03/11/2024 16:47:41 03/11/2024 16:53:01 Perennial allergic rhinitis [id number] J30.89 [id number] BERNADETTE KIERRA, [facility] Allergy 100 [facility],[place] [address] [place] [address] 04/01/2024 09:08:42 04/01/2024 09:35:16 Perennial allergic rhinitis [id number] J30.89 93484 RAFY HONEYCUTT, [facility] Allergy [address] [place] [address],[place] [address] [place] [address] 04/08/2024 09:23:41 04/08/2024 09:48:27 Perennial allergic rhinitis [id number] J30.89 [id number] [facility] Allergy [address] [place] [address],[place] [address] [place] [address] 04/15/2024 09:16:55 04/15/2024 10:00:36 Perennial allergic rhinitis [id number] J30.89 [id number] RAFY HONEYCUTT, [facility] Allergy [address] [place] [address],[place] [address] [place] [address] 04/22/2024 10:26:34 04/22/2024 10:57:48 Perennial allergic rhinitis [id number] J30.89 [id number] BLANCA MEEKS avian keeper [address] [place] [address],[place] [address] [place] [address] 05/13/2024 09:35:34 05/13/2024 12:12:09 Perennial allergic rhinitis [id number] J30.89 [id number] BERNADETTE [facility] Allergy [address] [place] [address],[place] [address] [place] [address] 05/20/2024 10:02:04 05/20/2024 10:28:11 Perennial allergic rhinitis [id number] J30.89 [id number] [facility] Allergy 100 [facility],[place] [address] [place] [address] 05/27/2024 09:44:51 05/27/2024 09:53:49 Perennial allergic rhinitis 918917803 J30.89 Health Concerns Section Related Observation LastModified by Organization Detai ls LastModified Time None Recorded Concern Status LastModified by Organization Details LastModified Time None Recorded Advance Directives Directive None Recorded Payers Encounter Date Sequence Insurance Name Policy Number Policy Edouard Covered Member ID Edouard Member ID Guarantor Name 04/15/2024 1 [facility] NET PLAN (MEDICAID HMO) [place] [employer] [id number] Kaylee Charles 04/22/2024 1 [facility]ALTH [facility] PLAN (MEDICAID HMO) HECTOR Kaylee Charles [id number] Kaylee Charles 05/13/2024 1 [facility] HE[facility] NET PLAN (MEDICAID HMO) [facility] Kaylee Charles [id number] Kaylee Charles 05/20/2024 1 [facility] HE[facility] NET PLAN (MEDICAID HMO) [facility] Kaylee Charles [id number] Kaylee Charles 05/27/2024 1 [facility] HEALTH [facility] PLAN (MEDICAID HMO) [facility] Kaylee Charles [id number] Kaylee Guallpare OBGyn Episode No OBEpisode recorded.
== END 2024-05-27 15:27 | disposition home or self-care (01) ==
LOC: HO.HMCC 14:48
PROVIDERS: PCP Internal Medicine; Visit Provider Internal Medicine
DX: I10 Essential (primary) hypertension (principal); E13.9 Other specified diabetes mellitus without complications; E66.01 Morbid (severe) obesity due to excess calories; Z68.35 Body mass index [BMI] 35.0-35.9, adult; Z91.09 Other allergy status, other than to drugs and biological substances; R79.89 Other specified abnormal findings of blood chemistry; J45.40 Moderate persistent asthma, uncomplicated

== ENCOUNTER → 2024-05-27 14:47 | Outpatient (BNVA) | payer OTHER, SELFPAY | PROVIDERS: PCP Internal Medicine; Visit Provider Internal Medicine | DX: I10 Essential (primary) hypertension (principal); E13.9 Other specified diabetes mellitus without complications; R79.89 Other specified abnormal findings of blood chemistry; J45.40 Moderate persistent asthma, uncomplicated; Z91.09 Other allergy status, other than to drugs and biological substances; E66.01 Morbid (severe) obesity due to excess calories; Z68.35 Body mass index [BMI] 35.0-35.9, adult; Z71.3 Dietary counseling and surveillance | CPT/HCPCS: 96127; 99212 ==

== ENCOUNTER 2024-07-15 10:29 | Outpatient (AMB) | payer OTHER, SELFPAY ==
--- NOTE | 2024-07-15 10:30 | A.OFFPC_ITS ---
Vital Signs 3 07/15/24 10:30 Height 5 ft 4 in Intake Visit Reasons: problem Kayak Maker Required: No Accompanied by: Spouse Allergies losartan [LOSARTAN] Allergy (Unknown, Verified 07/15/24 10:31) COUGH oxycodone Allergy (Unknown, Verified 07/15/24 10:31) Unknown acetaminophen [From VICODIN] Adverse Reaction (Unknown, Verified 07/15/24 10:31) NAUSEA hydrocodone [From VICODIN] Adverse Reaction (Unknown, Verified 07/15/24 10:31) NAUSEA lisinopril Adverse Reaction (Unknown, Verified 07/15/24 10:31) cough metoprolol Adverse Reaction (Unknown, Verified 07/15/24 10:31) dizziness/nausea Medication List - Last Reconciled 07/15/24 by Johanny Garcia MD albuterol sulfate 2.5 mg inhalation Q6H PRN albuterol sulfate 90 mcg/actuation 2 inhalations inhalation QID PRN ascorbic acid (vitamin C) 1,000 mg PO DAILY cholecalciferol (vitamin D3) 100 mcg PO DAILY epinephrine 1 IM ONCE PRN loratadine (Claritin) 10 mg PO DAILY 90 days metformin 850 mg PO DAILY montelukast (Singulair) 10 mg PO DAILY naratriptan 2.5 mg PO DAILY PRN Pulmicort Flexhaler 90 mcg/actuation (budesonide) 1 inh inhalation BID NS spironolacton-hydrochlorothiaz 25-25 mg 1 tab PO DAILY Tobacco use date assessed: 05/27/24 Dental Screening Dental Screen Date: 05/27/24 HPI problem 2 HPI0 Details Patient is a 38-year-old female came in today to be evaluated for skin condition Which has been present for the past 4 months and is not getting better It is located next to left nipple offer breast There is quarter-size dark patch with some scaliness to it pruritic Patient has been using moisturizers but it is not resolving She is requesting a referral to Dermatology which I have placed Meanwhile it seems like an eczematous patch, I have recommended 1% ewcz-hnq-diwqzio hydrocortisone at night to see if that helps while she wait to see the Dermatology [facility] Medical History Obesity (BMI 30.0-34.9) ALESIA (obstructive sleep apnea) Allergic rhinitis LFT elevation Elevated ferritin Asthma Migraine headache Diabetes 1.5, managed as type 2 Environmental allergies Hypertension, essential Surgical History History of laparoscopic cholecystectomy Family History Father Unknown family medical history Mother Unknown family medical history Brother No problems noted. Social History Housing: House Alcohol intake: never Patient Tobacco Use Status: Never used Tobacco e-Cigarette/Vaping Use: Never Used Second Hand Smoke Exposure: No service: No Current occupational status: employed Cognitive needs: No Hearing needs: No Vision needs: No Questionnaire Thrive Questionnaire Date Thrive assessed: 05/27/24 TIM-7 AMB Questionnaire TIM-7 Date ITM - 7 assessed: 05/27/24 Source: Developed by Drs. Adam Kidd, Sherrie Lantigua, Grayson Wiseman and colleagues, with an educational gene from [employer]. Review of Systems Const All systems reviewed & are unremarkable except as noted in HPI and below Physical exam (Primary Care) Tobacco/Smoking Status: Tobacco use Status Tobacco use date assessed 05/27/24 07/15/24 10:32 Patient Tobacco Use Status Never used Tobacco 07/15/24 10:32 e-Cigarette/Vaping Use Never Used 07/15/24 10:32 Thrive Assessment: Date of Thrive Assessment Date Thrive assessed 05/27/24 07/15/24 10:32 Const General: no acute distress Orientation/consciousness: patient oriented x3 Eyes General: appearance normal, both eyes and all related structures Resp Effort & Inspection: normal respiratory effort and able to speak in complete sentences Skin Full body images: 2 1. Quarter-size dark scaly almost round patch next to left nipple without any sign of inflammation Neuro General: patient oriented x3 Psych Mental Status: mental status grossly normal Coding Level of Care Code Est Pt Level 3 (78326) Diagnoses Skin rash R21 Assessment & Plan Assessment & Plan (1) Skin rash: Code(s): R21 - Rash and other nonspecific skin eruption Category: Medical Plan Patient is a 38-year-old female came in today to be evaluated for skin condition Which has been present for the past 4 months and is not getting better It is located next to left nipple offer breast There is quarter-size dark patch with some scaliness to it pruritic Patient has been using moisturizers but it is not resolving She is requesting a referral to Dermatology which I have placed Meanwhile it seems like an eczematous patch, I have recommended 1% jach-ghc-rjhodsm hydrocortisone at night to see if that helps while she wait to see the Dermatology Orders: Referrals 2 Dermatology Referral R21 - Rash and other nonspecific skin eruption
== END 2024-07-15 10:39 | disposition home or self-care (01) ==
LOC: HO.HMCC 10:30
PROVIDERS: PCP Internal Medicine; Visit Provider Internal Medicine
DX: R21 Rash and other nonspecific skin eruption (principal)

== ENCOUNTER → 2024-07-15 10:29 | Outpatient (BNVA) | payer OTHER, SELFPAY | PROVIDERS: PCP Internal Medicine; Visit Provider Internal Medicine | DX: R21 Rash and other nonspecific skin eruption (principal) | CPT/HCPCS: 99212 ==

== ENCOUNTER 2024-12-02 09:45 | Outpatient (AMB) | payer OTHER, SELFPAY ==
--- NOTE | 2024-12-02 09:49 | A.OFFPC_ITS ---
Vital Signs 12/02/24 09:50 Height 5 ft 4 in Weight 204 lb BMI 35.0 BP 126/80 Blood Pressure Location Rt brachial Position Sitting Pulse 86 Pulse Source Pulse Oximeter Pulse Oximetry (%) 97 Intake Visit Reasons: 4m follow up Allergies losartan (LOSARTAN) Allergy (Unknown, Verified 12/02/24 09:50) COUGH oxycodone Allergy (Unknown, Verified 12/02/24 09:50) Unknown acetaminophen (From VICODIN) Adverse Reaction (Unknown, Verified 12/02/24 09:50) NAUSEA hydrocodone (From VICODIN) Adverse Reaction (Unknown, Verified 12/02/24 09:50) NAUSEA lisinopril Adverse Reaction (Unknown, Verified 12/02/24 09:50) cough metoprolol Adverse Reaction (Unknown, Verified 12/02/24 09:50) dizziness/nausea Medication List - Last Reconciled 12/02/24 by Johanny Garcia MD albuterol sulfate 2.5 mg inhalation Q6H PRN albuterol sulfate 90 mcg/actuation 2 inhalations inhalation QID PRN ascorbic acid (vitamin C) 1,000 mg PO DAILY cholecalciferol (vitamin D3) 100 mcg PO DAILY epinephrine 1 IM ONCE PRN loratadine (Claritin) 10 mg PO DAILY 90 days metformin 850 mg PO DAILY montelukast (Singulair) 10 mg PO DAILY naratriptan 2.5 mg PO DAILY PRN Pulmicort Flexhaler 90 mcg/actuation (budesonide) 1 inh inhalation BID NS spironolacton-hydrochlorothiaz 25-25 mg 1 tab PO DAILY Tobacco use date assessed: 05/27/24 Dental Screening Dental Screen Date: 05/27/24 HPI 4m follow up HPI Details History The patient is a 38 year old female presenting with diabetes management, hypertension, migraine, asthma, and allergies. Diabetes mellitus type 2: - The patient has a history of diabetes type 2 with an HbA1c last recorded at 6.3 in April, indicating controlled glucose levels. - Currently on metformin 850 mg without any adverse effects like diarrhea or abdominal cramping reported. - Reportedly has labs to be repeated tod ay, including HbA1c to assess current glucose control. Hypertension: - Hypertension is being managed with spi ronolactone and hydrochlorothiazide. - Blood pressure is well controlled at 1 26/80, indicating effective management. Migraine: - History of migraine treated effectivel y with melatriptan 2.5 mg PRN. - No adverse symptoms reported; medicati on last filled in August with supply remaining. Asthma: - Asthma is managed with a pulmicort inh aler and albuterol for breakthrough david rtness of breath. - The condition is reported as stable wi th current medication regimen. Allergies: - Utilizes loratadine 10 mg for allergy management. - Patient reports undergoing maintenance therapy for allergy desensitization and receiving regular allergy shots. - No adverse reactions reported. Medical History: - Diabetes mellitus type 2 - Essential hypertension - Asthma - Migraine - Allergies Medications: - Loratadine 10 mg for allergies - Metformin 850 mg for diabetes mellitus type 2 - Melatriptan 2.5 mg PRN for migraine - Pulmicort inhaler for asthma managemen t - Albuterol inhaler as needed for asthma - Spironolactone for hypertension manage ment - Hydrochlorothiazide for hypertension m anagement Social History: - Engages in physical activity, reportin g walking 8 to 10 miles over three days, indicating a high level of activity. - Family connections discussed, includin g a visit to a brother who owns a restaurant in [place]. Problem List - Diabetes mellitus type 2 - Essential hypertension - Migraine - Asthma - Allergies Plan - Maintain current regimen of metformin 850 mg for diabetes and repeat HbA1c in labs today to monitor control. - Continue spironolactone and hydrochlor othiazide for hypertension management since blood pressure is well controlled. - Continue melatriptan 2.5 mg PRN for mi graines as needed with no current alteration in therapy needed. - Maintain current asthma management wit h pulmicort inhaler and albuterol PRN. Monitor for any changes in symptoms. - Continue regular use of loratadine 10 mg and allergy shots. Monitor response to maintenance therapy. - Initiate [id number] vitamin D price pplementation at recommended dosing. Review of Systems General: No fever no chills neurological: No headaches no dizziness ear nose throat: No sore throat no hearing difficulty no ear pain cardiovascular: No syncope, no chest pain, no palpitations gastrointestinal: No nausea vomiting or diarrhea endocrine: No polyuria polydipsia no heat intolerance genitourinary: No dysuria skin: No new complaints Physical Exam general: No acute distress HEENT: No acute findings neck: Supple respiratory system: Lungs are clear, able to talk in full sentences, no audible wheeze, no stridor cardiovascular: S1-S2 RRR, blood pressure well controlled at 126/80 gastrointestinal: No pain, no diarrhea, no abdominal cramping extremities: No new findings, no swelling 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 Social History Housing: House Alcohol intake: never Patient Tobacco Use Status: Never used Tobacco e-Cigarette/Vaping Use: Never Used Second Hand Smoke Exposure: No service: No Current occupational status: employed Cognitive needs: No Hearing needs: No Vision needs: No Questionnaire Thrive Questionnaire Date Thrive assessed: 05/27/24 I am a: Patient What is your living situation today?: I have a steady place to live Within the past 12 months, did the food you bought not last and you didn't have the money to get more?: Never true Within the past 12 months, did you worry whether your food would run out before you got money to buy more?: Never true Do you have trouble paying for medicines?: No Do you have trouble getting transportation to medical appointments?: No Do you have trouble paying your heating and electricity bill?: No Do you have trouble taking care of your child, family member or friend?: No Do you have trouble with day-to-day activities such as bathing, preparing meals, shopping, managing finances, etc.?: No Are you currently unemployed and looking for a job?: No Are you interested in more education?: No Please select the resources that you would like help with: None Currently or been in a relationship where the following occur: No concerns reported THRIVE Score: 0 TIM-7 AMB Questionnaire TIM-7 Date TIM - 7 assessed: 05/27/24 Source: Developed by Drs. Adam Kidd, Sherrie Lantigua, Grayson Wiseman and colleagues, with an educational gene from [employer] Physical exam (Primary Care) Vital Signs: Last Vital Signs Pulse 86 12/02/24 09:50 BP 126/80 12/02/24 09:50 Pulse Ox 97 12/02/24 09:50 BMI result Body Mass Index 35.0 Tobacco/Smoking Status: Tobacco use Status Tobacco use date assessed 05/27/24 12/02/24 09:51 Patient Tobacco Use Status Never used Tobacco 12/02/24 09:51 e-Cigarette/Vaping Use Never Used 12/02/24 09:51 Thrive Assessment: Date of Thrive Assessment Date Thrive assessed 05/27/24 12/02/24 09:51 Currently or been in a relationship where the following occur: No concerns reported Office Procedures Flu Questionnaire Does the patient have a severe egg allergy?: No Does the patient have severe life threatening allergies?: No Does the patient have a fever or illness today?: No Has the patient ever had Guillain-[place] Syndrome?: No Has the patient ever had any past reaction to a flu shot?: No Immunizations Fluarix 4490-1240 (PF) 45 mcg (15 mcg x 3)/0.5 mL IM syringe Performing Provider: Johanny Garcia MD [place]forming [place] [facility] Administered by: Deacon Parks CMA on 12/02/24 10:43 Dose Route Admin Location Dispensed Lot Number Expiration Date [facility] Dedenter 0.5 mL IM Left Deltoid 0.5 mL [id number] 08/24/25 [id number] [employer] VIS Given Date VIS Provided VIS Publication Date 12/02/24 Single Vaccine 24 Eligibility Eligibility Date Funding Source Not [facility] Eligible 12/02/24 Private Coding Level of Care Code Est Pt Level 4 (15722) Complex EM visit Add On G2211 Diagnoses Hypertension, essential I10 Diabetes 1.5, managed as type 2 E13.9 Moderate persistent asthma without complication J45.40 Asthma complication type: uncomplicated Obesity (BMI 30.0-34.9) E66.9 Environmental allergies Z91.09 Intractable migraine with aura without status migrainosus G43.119 Intractability: intractable Migraine type: with aura Status migrainosus presence: without status migrainosus LFT elevation R79.89 Assessment & Plan Assessment & Plan (1) Hypertension, essential: Code(s): I10 - Essential (primary) hypertension Category: Medical (2) Diabetes 1.5, managed as type 2: Code(s): E13.9 - Other specified diabetes mellitus without complications Category: Medical (3) Asthma, moderate persistent: Code(s): J45.40 - Moderate persistent asthma, uncomplicated Category: Medical Qualifiers: Asthma complication type: uncomplicated Qualified Code(s): J45.40 - Moderate persistent asthma, uncomplicated (4) Obesity (BMI 30.0-34.9): Comment: SHE HAS WEIGHT GAIN BECAUSE OF NOT WORKING AND STAYING HOME MOST OF THE TIME SHE IS MADE AWARE OF THIS AND SHE IS GOING TO TRY RESTRICTING HER CALORIES INTAKE AND DO SOME DAILY EXERCISE Code(s): E66.9 - Obesity, unspecified Category: Medical (5) Environmental allergies: Code(s): Z91.09 - Other allergy status, other than to drugs and biological substances Category: Medical (6) Migraine headache: Code(s): G43.909 - Migraine, unspecified, not intractable, without status migrainosus Category: Medical Qualifiers: Intractability: intractable Migraine type: with aura Status migrainosus presence: without status migrainosus Qualified Code(s): G43.119 - Migraine with aura, intractable, without status migrainosus (7) LFT elevation: Code(s): R79.89 - Other specified abnormal findings of blood chemistry Category: Medical Plan History The patient is a 38 year old female presenting with diabetes management, hypertension, migraine, asthma, and allergies. Diabetes mellitus type 2: - The patient has a history of diabetes type 2 with an HbA1c last recorded at 6.3 in April, indicating controlled glucose levels. - Currently on metformin 850 mg without any adverse effects like diarrhea or abdominal cramping reported. - Reportedly has labs to be repeated today, including HbA1c to assess current glucose control. Hypertension: - Hypertension is being managed with spironolactone and hydrochlorothiazide. - Blood pressure is well controlled at 126/80, indicating effective management. Migraine: - History of migraine treated effectively with melatriptan 2.5 mg PRN. - No adverse symptoms reported; medication last filled in August with supply remaining. Asthma: - Asthma is managed with a pulmicort inhaler and albuterol for breakthrough shortness of breath. - The condition is reported as stable with current medication regimen. Allergies: - Utilizes loratadine 10 mg for allergy management. - Patient reports undergoing maintenance therapy for allergy desensitization and receiving regular allergy shots. - No adverse reactions reported. Medical History: - Diabetes mellitus type 2 - Essential hypertension - Asthma - Migraine - Allergies Medications: - Loratadine 10 mg for allergies - Metformin 850 mg for diabetes mellitus type 2 - Melatriptan 2.5 mg PRN for migraine - Pulmicort inhaler for asthma management - Albuterol inhaler as needed for asthma - Spironolactone for hypertension management - Hydrochlorothiazide for hypertension management Social History: - Engages in physical activity, reporting walking 8 to 10 miles over three days, indicating a high level of activity. - Family connections discussed, including a visit to a brother who owns a restaurant in [place]. Problem List - Diabetes mellitus type 2 - Essential hypertension - Migraine - Asthma - Allergies Plan - Maintain current regimen of metformin 850 mg for diabetes and repeat HbA1c in labs today to monitor control. - Continue spironolactone and hydrochlorothiazide for hypertension management since blood pressure is well controlled. - Continue melatriptan 2.5 mg PRN for migraines as needed with no current alteration in therapy needed. - Maintain current asthma management with pulmicort inhaler and albuterol PRN. Monitor for any changes in symptoms. - Continue regular use of loratadine 10 mg and allergy shots. Monitor response to maintenance therapy. - Initiate [id number] vitamin D supplementation at recommended dosing. f/u in Feb Orders: Orders Complete Blood Count Auto Diff Today E13.9 - Other specified diabetes mellitus without complications, E66.9 - Obesity, unspecified, G43.119 - Migraine with aura, intractable, without status migrainosus, I10 - Essential (primary) hypertension, J45.40 - Moderate persistent asthma, uncomplicated, R79.89 - Other specified abnormal findings of blood chemistry, Z91.09 - Other allergy status, other than to drugs and biological substances Vitamin D 25-OH (D2 and D3) Today E13.9 - Other specified diabetes mellitus without complications, E66.9 - Obesity, unspecified, G43.119 - Migraine with aura, intractable, without status migrainosus, I10 - Essential (primary) hypertension, J45.40 - Moderate persistent asthma, uncomplicated, R79.89 - Other specified abnormal findings of blood chemistry, Z91.09 - Other allergy status, other than to drugs and biological substances Microalbumin, Random (w Creat) Today E13.9 - Other specified diabetes mellitus without complications, E66.9 - Obesity, unspecified, G43.119 - Migraine with aura, intractable, without status migrainosus, I10 - Essential (primary) hypertension, J45.40 - Moderate persistent asthma, uncomplicated, R79.89 - Other specified abnormal findings of blood chemistry, Z91.09 - Other allergy status, other than to drugs and biological substances Comprehensive [place]. Panel Fast Today E13.9 - Other specified diabetes mellitus without complications, E66.9 - Obesity, unspecified, G43.119 - Migraine with aura, intractable, without status migrainosus, I10 - Essential (primary) hypertension, J45.40 - Moderate persistent asthma, uncomplicated, R79.89 - Other specified abnormal findings of blood chemistry, Z91.09 - Other allergy status, other than to drugs and biological substances Hemoglobin A1c Today E13.9 - Other specified diabetes mellitus without complications, E66.9 - Obesity, unspecified, G43.119 - Migraine with aura, intractable, without status migrainosus, I10 - Essential (primary) hypertension, J45.40 - Moderate persistent asthma, uncomplicated, R79.89 - Other specified abnormal findings of blood chemistry, Z91.09 - Other allergy status, other than to drugs and biological substances Lipid Panel Today E13.9 - Other specified diabetes mellitus without complications, E66.9 - Obesity, unspecified, G43.119 - Migraine with aura, intractable, without status migrainosus, I10 - Essential (primary) hypertension, J45.40 - Moderate persistent asthma, uncomplicated, R79.89 - Other specified abnormal findings of blood chemistry, Z91.09 - Other allergy status, other than to drugs and biological substances Influenza [id number] Immunization Today Z23 - Encounter for immunization Medications: Refilled metformin 850 mg PO DAILY 90 tabs 2RF spironolacton-hydrochlorothiaz 25-25 mg 1 tab PO DAILY 90 tabs 0RF
[2024-12-02 09:50] VITALS: BP 126/80; PULSE 86; O2SAT 97; BMI 35.0
== END 2024-12-02 10:29 | disposition home or self-care (01) ==
LOC: HO.HMCC 09:45
PROVIDERS: PCP Internal Medicine; Visit Provider Internal Medicine
DX: I10 Essential (primary) hypertension (principal); E13.9 Other specified diabetes mellitus without complications; E66.9 Obesity, unspecified; Z68.35 Body mass index [BMI] 35.0-35.9, adult; J45.40 Moderate persistent asthma, uncomplicated; Z91.09 Other allergy status, other than to drugs and biological substances; G43.119 Migraine with aura, intractable, without status migrainosus; R79.89 Other specified abnormal findings of blood chemistry; Z23 Encounter for immunization

== ENCOUNTER → 2024-12-02 09:45 | Outpatient (BNVA) | payer OTHER, SELFPAY | PROVIDERS: PCP Internal Medicine; Visit Provider Internal Medicine | DX: I10 Essential (primary) hypertension (principal); J45.909 Unspecified asthma, uncomplicated; E13.9 Other specified diabetes mellitus without complications; J45.40 Moderate persistent asthma, uncomplicated; E66.9 Obesity, unspecified; G43.119 Migraine with aura, intractable, without status migrainosus; R79.89 Other specified abnormal findings of blood chemistry; Z23 Encounter for immunization; Z91.09 Other allergy status, other than to drugs and biological substances; Z68.35 Body mass index [BMI] 35.0-35.9, adult | CPT/HCPCS: 90471; 90656; 99212 ==

== ENCOUNTER 2024-12-09 08:56 | Outpatient (REF) | payer OTHER, SELFPAY ==
--- OUTSIDE RECORDS SUMMARY | 2024-12-09 09:37 | XMS_ITS | Patient Health Record ---
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 Name Role Phone Taylor Hanna Primary Care Provider Scar Jordan Jr Unavailable Reason For Referral No Information Medications Medication SIG (Take, Route, Frequency, Duration) Notes Start Date End Date Status Vitamin D3 Active Flovent HFA prn Active Ventolin HFA 108 (90 Base) MCG/ACT INHALE 2 PUFFS EVERY 4 HOURS NEEDED FOR COUGH, WHEEZING OR SHORTNESS OF BREATH Inhalation prn Active Vitamin C 500 MG 1 tablet Orally Once a day Active Loratadine 10 MG 1 tablet Orally Once a day Active Amlodipine & Diet Manage Prod Active Montelukast Sodium A ctive Spironolactone Activ e Social History Alcohol Screen Question Answer Notes Did you have a drink contain ing alcohol in the past year? Yes How often did you have a dri nk containing alcohol in the past year? Monthly or less (1 point) How many drinks did you have on a typical day when you were drinking in the past year? 1 or 2 drinks (0 point) How often did you have 6 or more drinks on one occasion in the past year? Never (0 point) Points 1 Interpretation Negative Section Notes: very occasional alcohol Problems Problem Type SNOMED Code ICD Code Onset Dates Problem Status W/U Status Risk Notes Problem Fatty liver (297917811) Fatty liver (K76.0) Active confirmed Problem Elevated liver enzymes level (864529715) Elevated liver function tests (R94.5) Active confirmed Problem Atypical chest pain (658784940) Atypical chest pain (R07.89) Active confirmed Plan Of Treatment No Information Insurance Providers Payer Name Payer Address Payer Phone Subscriber Number Group Number Insured Name Patient Relationship to Insured Coverage Start Date Coverage End Date [employer] [address] ATTN [place] [address] [id number] LORY SARMIENTO Self - patient is the insured Medical (General) History Medical History History ICD Code hypertension Denies [place],DM,CVA,renal disease type II diabetes-diet controlled fatty liver asthma Surgical History Surgery Date(Month/Year) cholecystectomy 2015
[2024-12-09 10:15] LABS: MANUAL DIFF FLAG NO
[2024-12-09 10:21] LABS: Hematocrit 41.4 % (37.0-47.0); Hemoglobin 13.8 g/dl (12.0-16.0); Imm Gran Abs Auto 0.03 X10*3/uL (0.00-0.03); Imm Gran Pct Auto 0.4 % (0.0-0.4); Lymphocytes Absolute Auto 2.0 X10*3/uL (1.2-4.9); Mean Corpuscular HGB Conc 33.3 g/dl (31.0-35.0); Mean Corpuscular Hemoglobin 31.4 pg (27.0-33.0); Mean Corpuscular Volume 94.1 fL (80.0-98.0); NRBC Abs Auto 0.000 X10*3/uL (0.0-0.012); NRBC Pct Auto 0.0 /100WBC (0.0-0.2); Platelet Count 319 X10*3/uL (160-400); Red Blood Count 4.40 X10*6/uL (4.20-5.50); White Blood Count 7.0 X10*3/uL (4.8-10.8)
[2024-12-09 10:49] LABS: Alanine Aminotransferase 64 U/L (0-31); Albumin Level 4.6 g/dL (3.5-5.0); Alkaline Phosphatase 76 U/L (39-117); Anion Gap 12 (12-20); Aspartate Amino Transferase 50 U/L (5-31); Blood Urea Nitrogen 14 mg/dL (9-16); Calcium 9.4 mg/dL (8.4-10.2); Carbon Dioxide 26 mmol/L (22-29); Chloride 102 mmol/L (96-108); Cholesterol 159 mg/dL (<200); Estimated Glomerular Filt Rate > 60; HDL Cholesterol 65 mg/dL (>40); Potassium 4.3 mmol/L (3.3-5.1); Sodium 136 mmol/L (135-145); Total Protein 7.5 g/dL (6.5-8.0); Triglycerides 105 mg/dL (<150)
[2024-12-09 11:07] LABS: Microalbum/Creatinine Ratio Ur 6.4 ug/mg cr (<30)
[2024-12-13 16:44] LABS: Vitamin D 25-OH, D2 <4 ng/mL; Vitamin D 25-OH, D3 27 ng/mL; Vitamin D 25-OH, Total 27 ng/mL (30-100)
== END 2024-12-09 08:57 | disposition home or self-care (01) ==
LOC: HO.HMGCLDS 08:56
PROVIDERS: PCP Internal Medicine; Visit Provider Internal Medicine
DX: I10 Essential (primary) hypertension (principal); E13.9 Other specified diabetes mellitus without complications; E66.9 Obesity, unspecified; J45.40 Moderate persistent asthma, uncomplicated; G43.119 Migraine with aura, intractable, without status migrainosus; R79.89 Other specified abnormal findings of blood chemistry; Z91.09 Other allergy status, other than to drugs and biological substances
CPT/HCPCS: 36415; 80053; 80061; 82043; 82306; 82570; 83036; 85025